=== PATIENT | male | born 1950 | race African-American/Black ===

== ENCOUNTER → 2017-04-06 | Outpatient (CLI) | payer OTHER ==
[~2017-04-06] MED LIST: ASA5UEC PO; ASA81BEC OR; CRESTOR20 MG PO; EFFIENT10 MG PO; GLUCOPHAGE500 MG PO; LANTUS SC; LASIX 20 MG TAB20 MG PO; LISINOPRIL40 MG PO; NOVOLOG100 UNIT/1 SQ; POTASSIUM20 PO; TOPROL XL50 MG PO
== END ==
LOC: HYPER 06:58
DX: T87.89 Other complications of amputation stump (principal); T81.31XA Disruption of external operation (surgical) wound, not elsewhere classified, initial encounter; E11.621 Type 2 diabetes mellitus with foot ulcer; L89.892 Pressure ulcer of other site, stage 2; L97.521 Non-pressure chronic ulcer of other part of left foot limited to breakdown of skin; S81.811A Laceration without foreign body, right lower leg, initial encounter; I10 Essential (primary) hypertension; Z89.411 Acquired absence of right great toe; Z89.421 Acquired absence of other right toe(s); Z85.46 Personal history of malignant neoplasm of prostate; Z72.89 Other problems related to lifestyle; Y92.89 Other specified places as the place of occurrence of the external cause; Y83.8 Other surgical procedures as the cause of abnormal reaction of the patient, or of later complication, without mention of misadventure at the time of the procedure; Y83.5 Amputation of limb(s) as the cause of abnormal reaction of the patient, or of later complication, without mention of misadventure at the time of the procedure; X58.XXXA Exposure to other specified factors, initial encounter; Y93.89 Activity, other specified; Y99.8 Other external cause status

== ENCOUNTER → 2017-04-12 | Outpatient (CLI) | payer OTHER ==
--- NOTE | ~2017-04-12 | EKG ---
[address] [place] [address] ELECTROCARDIOGRAM REPORT Name: MARY NIEVES Room #: REG [facility]#: [id number] Admission: 04/12/17 Attend Phys: Nick Bell MD Discharge: Date of : 46 Report #: [id number] THIS REPORT FOR: //name// [facility] Test Date: 2017-04-12 Test Time: 13:28:19 Pat Name: MARY NIEVES Department: Room: Gender: M Philosophy Faculty: Cheri GRANT : 1950 Requested By: Nick Bell Order Number: [id number] MD: Richard Steiner Measurements Intervals [place] Rate: 73 P: -40 NM: 193 QRS: -52 QRSD: 139 T: 81 QT: 428 QTc: 472 Interpretive Statements Sinus rhythm Right bundle branch block Left ventricular hypertrophy Left anterior hemiblock Compared to ECG 06/16/2010 07:22:42 no significant change was found Electronically Signed On 04-12-2017 18:16:02 CDT by Richard Steiner [email or web address] <ELECTRONICALLY SIGNED> By: Richard Steiner MD, [facility] 04/12/17 1816 1328 1328 Richard Steiner MD, [facility] /EPI
== END ==
LOC: CV 13:03
DX: E11.69 Type 2 diabetes mellitus with other specified complication (principal); T81.31XA Disruption of external operation (surgical) wound, not elsewhere classified, initial encounter; Z89.411 Acquired absence of right great toe; Z89.421 Acquired absence of other right toe(s)

== ENCOUNTER → 2017-04-27 | Outpatient (CLI) | payer OTHER | LOC: HYPER | DX: T81.31XD Disruption of external operation (surgical) wound, not elsewhere classified, subsequent encounter (principal); I10 Essential (primary) hypertension; E11.621 Type 2 diabetes mellitus with foot ulcer; L97.521 Non-pressure chronic ulcer of other part of left foot limited to breakdown of skin; Z85.46 Personal history of malignant neoplasm of prostate; Z72.89 Other problems related to lifestyle; Z89.411 Acquired absence of right great toe; Z89.421 Acquired absence of other right toe(s); Y83.8 Other surgical procedures as the cause of abnormal reaction of the patient, or of later complication, without mention of misadventure at the time of the procedure ==

== ENCOUNTER → 2017-05-11 | Outpatient (CLI) | payer OTHER | LOC: HYPER 07:05 | DX: T81.31XD Disruption of external operation (surgical) wound, not elsewhere classified, subsequent encounter (principal); E11.621 Type 2 diabetes mellitus with foot ulcer; L97.521 Non-pressure chronic ulcer of other part of left foot limited to breakdown of skin; I10 Essential (primary) hypertension; Z85.46 Personal history of malignant neoplasm of prostate; Z89.411 Acquired absence of right great toe; Z89.421 Acquired absence of other right toe(s); Z72.89 Other problems related to lifestyle; Y83.8 Other surgical procedures as the cause of abnormal reaction of the patient, or of later complication, without mention of misadventure at the time of the procedure ==

== ENCOUNTER → 2017-05-25 | Outpatient (CLI) | payer OTHER | LOC: HYPER 06:53 | DX: T81.31XD Disruption of external operation (surgical) wound, not elsewhere classified, subsequent encounter (principal); E11.9 Type 2 diabetes mellitus without complications; I10 Essential (primary) hypertension; Z85.46 Personal history of malignant neoplasm of prostate; Z72.89 Other problems related to lifestyle; Z89.411 Acquired absence of right great toe; Z89.421 Acquired absence of other right toe(s); Y83.8 Other surgical procedures as the cause of abnormal reaction of the patient, or of later complication, without mention of misadventure at the time of the procedure ==

== ENCOUNTER → 2017-06-01 | Outpatient (CLI) | payer OTHER | LOC: HYPER 07:03 | DX: T87.81 Dehiscence of amputation stump (principal); L89.893 Pressure ulcer of other site, stage 3; E11.621 Type 2 diabetes mellitus with foot ulcer; L97.521 Non-pressure chronic ulcer of other part of left foot limited to breakdown of skin; I10 Essential (primary) hypertension; Z85.46 Personal history of malignant neoplasm of prostate; Z72.89 Other problems related to lifestyle; Y83.5 Amputation of limb(s) as the cause of abnormal reaction of the patient, or of later complication, without mention of misadventure at the time of the procedure ==

== ENCOUNTER → 2017-06-08 | Outpatient (CLI) | payer OTHER | LOC: HYPER 06:48 | DX: T81.31XD Disruption of external operation (surgical) wound, not elsewhere classified, subsequent encounter (principal); E11.621 Type 2 diabetes mellitus with foot ulcer; L97.521 Non-pressure chronic ulcer of other part of left foot limited to breakdown of skin; L89.893 Pressure ulcer of other site, stage 3; E11.69 Type 2 diabetes mellitus with other specified complication; I10 Essential (primary) hypertension; Z89.411 Acquired absence of right great toe; Z89.421 Acquired absence of other right toe(s); Z85.46 Personal history of malignant neoplasm of prostate; Z72.89 Other problems related to lifestyle; Y83.8 Other surgical procedures as the cause of abnormal reaction of the patient, or of later complication, without mention of misadventure at the time of the procedure ==

== ENCOUNTER → 2017-06-15 | Outpatient (CLI) | payer OTHER | LOC: HYPER 06-13 09:14 | DX: T81.31XD Disruption of external operation (surgical) wound, not elsewhere classified, subsequent encounter (principal); E11.621 Type 2 diabetes mellitus with foot ulcer; L89.893 Pressure ulcer of other site, stage 3; L97.521 Non-pressure chronic ulcer of other part of left foot limited to breakdown of skin; I10 Essential (primary) hypertension; Z89.411 Acquired absence of right great toe; Z89.421 Acquired absence of other right toe(s); Z85.46 Personal history of malignant neoplasm of prostate; Z72.89 Other problems related to lifestyle; Y83.8 Other surgical procedures as the cause of abnormal reaction of the patient, or of later complication, without mention of misadventure at the time of the procedure ==

== ENCOUNTER → 2017-06-29 | Outpatient (CLI) | payer OTHER | LOC: HYPER 07:06 | DX: T81.31XD Disruption of external operation (surgical) wound, not elsewhere classified, subsequent encounter (principal); E11.621 Type 2 diabetes mellitus with foot ulcer; L97.521 Non-pressure chronic ulcer of other part of left foot limited to breakdown of skin; L89.893 Pressure ulcer of other site, stage 3; I10 Essential (primary) hypertension; Z89.411 Acquired absence of right great toe; Z89.421 Acquired absence of other right toe(s); Z85.46 Personal history of malignant neoplasm of prostate; Z72.89 Other problems related to lifestyle; Y83.8 Other surgical procedures as the cause of abnormal reaction of the patient, or of later complication, without mention of misadventure at the time of the procedure ==

== ENCOUNTER 2017-07-08 17:29 | Inpatient (IN) | payer OTHER ==
[~2017-07-08] VITALS: Ht 182.9 cm; Wt 86.5 kg
--- NOTE | ~2017-07-08 | HC ---
[facility] [place] [address] CONSULTATION Name: MARY NIEVES [place]QU[place] Room #: 419-P [facility] IN M.R.#: [id number] Admission: 07/08/17 Attend Phys: Jovani Daniel DO Discharge: Date of : 46 Report #: [id number] THIS REPORT FOR: //name// [facility] DATE OF SERVICE: 07/09/2017 REASON FOR CONSULTATION: Left foot osteomyelitis. HISTORY OF PRESENT ILLNESS: The patient is a 67-year-old gentleman who has been having diabetic foot ulcers on his left foot for several months. He actually underwent a first and second ray amputation back in January of this year at [facility]. He is being followed by wound care, having treatments with hyperbaric oxygen. In the past 3 days, on the lateral side on his wheelchair and has had now an increasing wound over his foot. He was admitted for evaluation of this. He has had an MRI scan of his foot. He has been on IV antibiotics. PAST MEDICAL HISTORY: Significant for diverticulitis. He had just stopped smoking in 2005, prostate cancer, coronary artery disease, hypertension, hyperlipidemia, peripheral neuropathy, type 2 diabetes, left first and second ray amputations, multiple left foot wound debridements. CURRENT MEDICATIONS: Have been reviewed and are on the chart. PHYSICAL EXAMINATION: GENERAL: Well-developed, well-nourished male, in no acute distress. He is alert and oriented, pleasant, cooperative with exam. EXTREMITIES: Examination of left foot shows him to have missing first and second ray. He has a large eschar over his lateral foot at the base of the small toe. He has healing wounds on the dorsum of the foot. The foot is foul smelling. He is not able to dorsiflex the foot and plantar flex to only 10 degrees. He has significantly decreased sensation to light touch. MRI scan of the left foot shows osteomyelitis of the small toe and extension down to the fifth metatarsal with soft tissue edema and swelling. ASSESSMENT: Left foot small toe and fifth metatarsal osteomyelitis with overlying diabetic ulceration. PLAN: Treatment options were discussed today with him. We discussed fifth ray amputation versus below-knee amputation. I discussed with him that my recommendation really is for below-knee amputation as he has been dealing with foot issues on this foot for several months now. If he underwent a fifth ray amputation, he would only be left with 2 toes and 2 metatarsals, which would be [address] [address] CONSULTATION Name: MARY NIEVES Room #: 419-P [facility] IN [facility]#: [id number] Admission: 07/08/17 Attend Phys: Jovani Daniel DO Discharge: Date of : 46 Report #: [id number] very difficult to ambulate on, in addition to the continued infection and complications that he may have from that his foot. He is going to consider these things tonight and let us know in the morning what he would like to do. I have him scheduled for surgery at 8:30 a.m. We will plan for either a fifth ray amputation versus a below-knee amputation. Thank you for allowing us to participate in the care of the patient. <ELECTRONICALLY SIGNED> By: Brent Finney MD 07/10/17 0929 2209 0337 Brent Finney MD /nt
--- NOTE | ~2017-07-08 | O ---
[facility] [place] [address] OPERATIVE REPORT Name: MARY NIEVES AQUILINO Room #: 419-P [facility] IN M.R.#: [id number] Admission: 07/08/17 Attend Phys: Anuj Rhoades MD Discharge: Date of : 46 Report #: [id number] THIS REPORT FOR: //name// CC: Jovani Velarde [facility] DATE OF SERVICE: 07/10/2017 PREOPERATIVE DIAGNOSES: Left foot small toe and fifth metatarsal osteomyelitis. POSTOPERATIVE DIAGNOSES: Left foot small toe and fifth metatarsal osteomyelitis. PROCEDURE PERFORMED: Left below-knee amputation. SURGEON: Brent Finney MD. DRAFTING ENGINEER: Jackie Pardo PA-C. ANESTHESIA: General. TOURNIQUET TIME: 36 minutes. COMPLICATIONS: None. SPECIMENS: The left foot and lower extremity were sent to pathology. CONDITION UPON LEAVING THE OPERATING ROOM: Stable. ESTIMATED BLOOD LOSS: 50 mL. INDICATIONS FOR PROCEDURE: The patient is a 67-year-old gentleman with diabetes. He has had previous left foot osteomyelitis, including his first and second rays that were amputated back in January of this year. He developed an eschar over his lateral foot and an MRI scan showed him to have osteomyelitis of the small toe, extending into his fifth metatarsal. He has been getting hyperbaric wound care in order to heal a dorsal ridge on his foot. After discussion with him, including options of a fifth ray amputation versus a below-knee amputation and the risks and benefits of both, he elected for left below-knee amputation. DESCRIPTION OF PROCEDURE: Risks, benefits, alternatives and complications were discussed in detail with the patient, including but not limited to risk of anesthesia; risks of damage to nerves, arteries, blood vessels; risk for infection, bleeding, and need for higher level amputation; informed consent was [facility] [address] [place] [address] OPERATIVE REPORT Name: MARY NIEVES [place] Room #: 419-P [facility] IN ..#: [id number] Admission: 07/08/17 Attend Phys: Anuj Rhoades MD Discharge: Date of : 48 Report #: [id number] obtained from the patient. The left leg was appropriately marked in the preoperative holding area. IV vancomycin was given for preoperative antibiotics. He was brought to the operating room and placed in supine position on operating room table. LMA anesthesia was induced without complication. Tourniquet was placed on the left thigh. Left lower extremity was prepped and draped in normal sterile fashion. Time-out was performed, properly identifying the patient, procedure as well as the instrumentation. All in the operating room were in agreement. A posterior flap based incision was marked on the skin with a marking pen. The left lower extremity was elevated, tourniquet was inflated. The skin incision was made with 10 blade through the skin to the deep tissue and then dissection was taken down with Bovie cautery through the anterolateral compartment as well as the lateral compartment. As vessels were encountered, they were dissected out and tied off with 0 silk. The periosteum was then elevated proximally and the skin and periosteum were retracted proximally over the tibia and this was then cut transversely using oscillating saw. The anterior portion of the tibia was beveled with a saw. The fibula was then resected at 1 cm proximal to the cut of the tibial resection. Dissection was continued along the posterior aspect of the tibia using Bovie cautery. The tibial vessels were dissected out and tied off with 0 silk. The tibial nerve was then dissected out and pulled and cut sharply with 10 blade to decrease neuroma formation. The deep posterior compartment was then removed to decrease the bulk of the flap. Tourniquet was deflated and hemostasis was obtained with Bovie cautery. The superficial posterior compartment was then flapped anteriorly over the tibia and sewn to the anterior fascia and periosteum with 0 Vicryl suture. Skin was then closed with 2-0 Vicryl and skin nikki. Soft dressing of Adaptic, 4 x 4, Webril, Ricci wrap were applied. The patient tolerated this procedure well and went to the recovery room under the care of anesthesia postoperatively. <ELECTRONICALLY SIGNED> By: Brent Finney MD 07/12/17 1105 1120 1233 Brent Finney MD /nt
--- NOTE | ~2017-07-08 | HC ---
[facility] [place] [address] CONSULTATION Name: LIZBETHMARY AQUILINO Room #: 419-P ADM IN M.R.#: [id number] Admission: 07/08/17 Attend Phys: Anuj Rhoades MD Discharge: Date of : 46 Report #: [id number] THIS REPORT FOR: //name// CC: Brody Rhoades DATE OF SERVICE: 07/12/2017 HISTORY OF PRESENT ILLNESS: The patient is a 67-year-old -Martiniquais male who has had problems with her left foot wound with osteomyelitis. He has peripheral vascular disease and diabetes mellitus with gangrene. He underwent a trial of hyperbaric oxygen and unfortunately has now been admitted to [facility] and has underwent a left below knee amputation on 07/10/2017. He is on the IV antibiotics as per Infectious Disease. He is being closely monitored with the diabetes. He does have anemia on PPI with consideration of a GI evaluation if the hemoglobin drops. He does have acute on chronic renal insufficiency. We are seeing him in rehabilitation medicine consultation. PAST MEDICAL HISTORY: Diabetes mellitus type 2, left below knee amputation 07/10/2017, hypertension, anemia, acute renal insufficiency versus chronic kidney disease. He also has a history of congestive heart failure, prostate CA, coronary artery disease with stenting of the LAD, peripheral neuropathy, and hyperlipidemia. HABITS: Past tobacco, stopping in 2005. No history of alcohol abuse. FAMILY HISTORY: Heart disease, diabetes. ALLERGIES: CODEINE. REVIEW OF SYSTEMS: Did not offer any current complaints of chest pain, shortness of breath or abdominal discomfort. Notes that he has some numbness of the right foot with the peripheral neuropathy. No focal extremity pain complaints. PHYSICAL EXAMINATION: GENERAL: A 67-year-old -Martiniquais male in no obvious distress. The patient is alert, pleasant. VITAL SIGNS: Last recorded temperature 98.8, pulse 76, respirations 16, blood pressure 135/47. HEENT: Appeared to be benign. Cranial nerves are grossly intact. Facies are symmetric. EXTREMITIES: Functional range of motion of both upper extremities without obvious focal weakness. Lower extremities, his left below knee amputation is dressed. He is able to flex that left hip and abduct. Some discomfort with [facility] [address] [place] [address] CONSULTATION Name: MARY NIEVES [place] Room #: 419-P [facility] IN ..#: [id number] Admission: 07/08/17 Attend Phys: Anuj Rhoades MD Discharge: Date of : 46 Report #: [id number] movement. Right lower extremity strength is a grade 4-/5. He has decreased distal sensation in a stocking distribution. He is mod assist with sit to stand. He was able to stand with mod assist, could not try to hop at all. Bed mobility is min assist. ASSESSMENT: A 67-year-old -Martiniquais male with the following problem list: 1. Left below-knee amputation, 07/10/2017. 2. Peripheral polyneuropathy. 3. Left foot wound, osteomyelitis with peripheral vascular disease, continuing on the IV antibiotics. 4. Acute renal insufficiency superimposed on chronic kidney disease. 5. Diabetes mellitus type 2. 6. Anemia. 7. History of coronary artery disease with stenting. PLAN: The patient is a candidate for an acute in-hospital inpatient rehabilitation stay. From a preadmission screening perspective: 1. Prior level of function is well delineated above. 2. Expected level of improvement would be for the patient to become modified independent with transfers, mobility and ADLs, so that he can return back to the home setting. We would anticipate length of stay of probably at least a week pending progress. 3. Evaluation of the patient's risk for clinical complications. He does have multiple medical comorbidities as noted above. 4. Condition that caused the need for rehabilitation would be the left below knee amputation with multiple comorbidities as noted above. 5. Treatments needed would include PT and OT 1-1/2 hours per day each five days a week throughout the duration of the acute inpatient rehabilitation stay. 6. Anticipated discharge destination would be back to the home setting. 7. Would anticipate home healthcare therapies once he is ready for discharge from rehabilitation. 8. The patient meets diagnostic criteria for an acute in-hospital inpatient rehabilitation stay. He meets medical necessity criteria and the multiple design consultant physicians will continue to follow. He does have the tolerance for an acute rehab stay and has appropriate discharge goals back to the home setting. By: 1036 1320 Lawrence Chatterjee MD /[facility]
--- NOTE | ~2017-07-08 | HC ---
[facility] [place] [address] CONSULTATION Name: MARY NIEVES Room #: 419-P ADM IN M.R.#: [id number] Admission: 07/08/17 Attend Phys: Jovani Daniel DO Discharge: Date of : 46 Report #: [id number] THIS REPORT FOR: //name// CC: [facility] DATE OF SERVICE: 07/09/2017 ATTENDING PHYSICIAN: Dr. Ortiz. REASON FOR EVALUATION: Left foot osteomyelitis. HISTORY OF PRESENT ILLNESS: Chart reviewed, patient examined. This is a 67-year-old gentleman with diabetes mellitus type 2, perhaps 10 years. This has been complicated by severe peripheral neuropathy, suspect some degree of vasculopathy as well who had issues with chronic osteomyelitis, previous great and second toe amputations. He has been followed by the wound care center. He over the course of the last 48-72 hours, developed an area in the mid portion of the lateral aspect of tissue necrosis. There was some concern about possible trauma that he was unaware of due to the wheelchair. Did have associated systemic illness with low-grade temperatures. He has been nauseated for unclear reasons, poor p.o. intake with anorexia. significant pulmonary-related complaints. Blood cultures are pending. Surgery evaluation pending as well. MRI showed changes that raised question of septic fifth MTP joint arthritis with osteomyelitis involving the fifth metatarsal proximal phalanx, soft tissue abscess, gas, and interosseous gas, multifocal marrow signal involving the lateral cuneiform, navicular, talar head and anteromedial tibial, which are nonspecific. Empirically started on vancomycin. ALLERGIES: CODEINE. CURRENT MEDICATIONS: Include ferrous sulfate, enoxaparin, pantoprazole, aspirin, vancomycin, oxycodone, insulin. PAST MEDICAL HISTORY: As described above. Diabetes mellitus, history of prostate cancer, history of cardiomyopathy with congestive heart failure, diverticulitis. SOCIAL HISTORY: Nonsmoker, no ethanol. FAMILY HISTORY: Noncontributory. REVIEW OF SYSTEMS: As above. PHYSICAL EXAMINATION: [facility] [address] [place] [address] CONSULTATION Name: MARY NIEVES [place]QU[place] Room #: 419-P [facility] IN M.R.#: [id number] Admission: 07/08/17 Attend Phys: Jovani Daniel DO Discharge: Date of : 46 Report #: [id number] GENERAL: Pleasant, alert, cooperative, in moderate distress. He is lucid. VITAL SIGNS: Temperature 99.2, pulse 74, respirations 18, blood pressure 115/49. SKIN: Warm, dry, no rashes. HEENT: Otherwise, unremarkable. NECK: Supple. LUNGS: Generally clear. HEART: Regular. I do not appreciate any murmur. ABDOMEN: Soft, nontender, nondistended. EXTREMITIES: Dressing over the left foot, there is an odor noted. GENITOURINARY: Deferred. RECTAL: Deferred. LABORATORY DATA AND IMAGING: MRI as described above. CBC: White count 14.2, H and H of 8.0 and 24.3, platelets of 277. Electrolytes: Sodium 134, potassium 3.5, chloride 100, bicarbonate is 27, BUN and creatinine 27 and 1.4, hemoglobin A1c of 8.9. TSH of 1.257, sed rate of greater than 150. Arterial Dopplers of lower extremity showed monophasic waveforms in the popliteal artery distal. ASSESSMENT: Probable osteomyelitis involving the lateral left foot, particular the metatarsal as well as a septic arthritis. We will continue therapy. With the odor and gas raising the question of polymicrobial etiology including anaerobes, we will add piperacillin, tazobactam to his antibiotic regimen, await surgery evaluation. I think in all likelihood, he will need some sort of operative debridement, at least partial ostectomy including the metatarsal head. Continue to monitor expectantly at this point. Seemingly the nausea started prior to initiation of antimicrobial therapy would be concerned about adverse drug effects as well. <ELECTRONICALLY SIGNED> By: Van Durbin MD 07/10/17 0501 1426 2246 Van Durbin MD /nt
--- NOTE | ~2017-07-08 | HC ---
[facility] [place] [address] CONSULTATION Name: LIZBETH,MARY AQUILINO Room #: 419-P ADM IN M.R.#: [id number] Admission: 07/08/17 Attend Phys: Anuj Rhoades MD Discharge: Date of : 48 Report #: [id number] THIS REPORT FOR: //name// CC: Brody Rhoades DATE OF SERVICE: 07/09/2017 CHIEF COMPLAINT: Left fifth toe and MTP diabetic foot wound. HISTORY OF PRESENT ILLNESS: The patient is a 67-year-old male patient with whom I am familiar. He has a history of some peripheral arterial disease, diabetes, and chronic ulceration involving his left foot. He has been followed by Dr. Bell and myself as an outpatient. He has had good improvement on the wound on the dorsal aspect of the foot and has completed a course of hyperbaric oxygen therapy and continuing local wound care. He has significant diabetic neuropathy in his left foot rubbed against the support of his wheelchair causing new ulceration over the fifth MTP. It was debrided and had been improving; however, over the last 24-48 hours, he developed increasing drainage, odor and some tissue necrosis. He has been admitted to the hospital. An MRI demonstrates septic arthritis and underlying osteomyelitis. The patient denies any pain, does complain of nausea as well as some chills. PAST MEDICAL HISTORY: Positive for hypertension, diabetes mellitus, peripheral arterial disease, congestive heart failure, history of prostate cancer with prior radiation treatments, coronary artery disease, previous left great toe amputation and chronic ulcerations to the dorsal aspect of the left foot, which have been improving. FAMILY HISTORY: Positive for coronary artery disease and diabetes. SOCIAL HISTORY: The patient is a former smoker. No alcohol or recreational drug use. MEDICATIONS: Include vancomycin, enteric coated aspirin, Effient, Zestril, Crestor, Lantus, NovoLog, Glucophage, metoprolol, Lasix and potassium chloride. ALLERGIES: CODEINE. REVIEW OF SYSTEMS: CONSTITUTIONAL: The patient does complain of chills, denies fever or weight loss. NEUROLOGICAL: The patient does have diabetic neuropathy. ENT: The patient denies earache, nasal drainage, sore throat. CARDIOVASCULAR: The patient denies chest pain, palpitations or diaphoresis. [address] [address] CONSULTATION Name: MARY NIEVES [place] Room #: 419-P [facility] IN ..#: [id number] Admission: 07/08/17 Attend Phys: Anuj Rhoades MD Discharge: Date of : 48 Report #: [id number] PULMONARY: The patient denies cough or shortness of breath. GASTROINTESTINAL: The patient does complain of nausea and some vomiting earlier today. Denies abdominal pain. ORTHOPEDIC: The patient is aware of the ulceration in his foot as well as the odor. Other systems are negative. PHYSICAL EXAMINATION: VITAL SIGNS: At this time include pulse 74, respiratory rate 18, blood pressure 115/49, temperature 99.2. GENERAL: This is a chronically ill-appearing male patient who appears to be in no distress. HEENT: Head is normocephalic. Nose and throat clear. NECK: Supple. LUNGS: Clear. HEART: Regular rate and some bowel sounds present. EXTREMITIES: Demonstrate nonpalpable distal pulses, although the skin is pink and warm and he has slightly sluggish capillary refill. He has an ulceration on the dorsal aspect of his left foot, a surgically absent left great toe. The ulceration on the dorsum of this foot has some slough, but has substantially improved over the last 30 days. Left lateral foot; however, shows necrosis, eschar and evidence of some gangrene. There is significant odor, this does tunnel to bone. MRI demonstrates septic arthritis at the fifth MTP joint with osteomyelitis of the fifth metatarsal and proximal phalanx and a marginal soft tissue abscess with intraosseous gas. The x-ray evaluation of this foot, osteomyelitis involving the fifth MTP joint with adjacent soft tissue gas. Arterial Doppler demonstrates monophasic waveforms below the knee, but no focal stenosis is seen. RECOMMENDATIONS: At this point in time, the patient has been started on intravenous antibiotic therapy. He will need surgical debridement. I have consulted Dr. [facility]. We will also discuss this with Interventional Radiology for consideration of possible angiography to make sure that we have maximized his flow. I appreciate being asked to see him in consultation. We will recommend quarter strength Dakin's moist gauze dressings. <ELECTRONICALLY SIGNED> By: Santos Montero MD 07/11/17 1443 1508 [id number] Santos Montero MD /nt
--- NOTE | ~2017-07-08 | S ---
[facility] [place] [address] SURGICAL PATH RPT PROCEDURE Name: MARY LAL Room #: 419-P [facility] IN M.R.#: [id number] Admission: 07/08/17 Date of : 46 Discharge: 07/12/17 Report #: [id number] Path Case #: [id number] PATHOLOGY REPORT COLLECTION DATE: 07/10/2017 RECEIVED DATE: 07/11/2017 SUBMITTING PHYS: Dr. Jovani Daniel OTHER PHYS: Dr. Brody Velarde SPECIMEN(S) RECEIVED: A.Left below knee amputation * * * * * * * * * * * * FINAL DIAGNOSIS: Leg, left leg, syrha-xuti-ymyzrmdpbq: - Gangrenous necrosis along with marked ulceration as well as abscess formation. - Skin margin viable and unremarkable. - Anterior tibial vessels showing moderate to marked atherosclerosis. - Bone margin grossly viable and 4.0 cm away from the skin margin. (IUV:mgr; 07/13/2017) PATHOLOGIST: Melina Chin M.D. REPORT ELECTRONICALLY SIGNED BY: Melina Chin M.D. DATE/TIME: 07/13/2017 15:02 * * * * * * * * * * * * GROSS PATHOLOGY: The specimen is received in fresh, labeled "Mary Lal and left BKA" is a left leg that has been amputated below the knee with leg measuring 33.0 cm from heel to cutaneous margin and foot measuring 30.0 cm from heel to tip of third toe. The bone margin is grossly viable, extends 4.0 cm beyond the skin margin. The foot is status post first and second toe amputation. The dorsal foot shows a non-healing wound measuring 14.5 by a 5.7 cm. The bed is ulcerated and shows a green discoloration. At the lateral distal foot is a necrotic lesion that measures 7.0 x 4.0 cm. At the heel is a dark red maroon necrotic lesion with surrounding hyperkeratotic skin measures up to 6.3 cm in greatest dimension. All lesions clear the margin by 26.0 cm or greater. The remaining skin is black. The fifth toe shows red maroon discoloration with skin sloughing. The nail plate's of each toe are markedly thickened. The anterior tibial artery shows moderate to marked atherosclerosis. The posterior artery is not grossly identified. The margin appears viable. Ragman sections are submitted A1-A5. A1-A2 necrotic lesions [address] [address] SURGICAL PATH RPT PROCEDURE Name: MARY LAL AQUILINO Room #: 419-P DIS IN M.R.#: [id number] Admission: 07/08/17 Date of : 46 Discharge: 07/12/17 Report #: [id number] Path Case #: [id number] A3 anterior tibial vessels A4 margins skin and skeletal muscle A5 fifth toe, decal (THU; 07/11/2017) CLINICAL HISTORY: Left diabetic foot with fifth toe osteomyelitis INITIAL CPT CODE(S): A; 66026, 34463 Professional services performed by [facility] at [facility] [address], [place] [address] Technical services performed by [facility] at [address] [place] [address], [address], [place] [address]. [facility] [address] [place] [address] PHONE: [phone] DIRECTOR: Juan Munoz M.D. * * * END OF REPORT * * *
[2017-07-08 17:35] VITALS: BP 100/46
[2017-07-08 19:42] LABS: HEMATOCRIT 27.6 % (42.0-52.0); HEMOGLOBIN 8.7 gm/dL (14.0-18.0); MCH 25.4 pg (26.0-34.0); MCHC 31.7 g/dL (28.0-37.0); MCV 80.1 fL (80.0-100.0); PLATELET COUNT 303 thou/uL (150-400); RBC 3.44 mil/uL (4.50-6.00); RDW 14.5 % (10.5-14.5); WBC 18.4 thou/uL (4.0-11.0)
[2017-07-08 19:43] LABS: MANUAL DIFF YES
[2017-07-08 19:50] LABS: CALCIUM 9.3 mg/dL (8.5-10.1); CREATININE 1.5 mg/dL (0.7-1.3); POTASSIUM 3.8 mmol/L (3.5-5.1)
[2017-07-08 19:56] LABS: ALBUMIN 2.7 g/dL (3.4-5.0); TOTAL PROTEIN 8.2 g/dL (6.4-8.2)
[2017-07-08 20:32] LABS: ABSOLUTE NEUTROPHILS 15.8 thou/uL (1.4-8.2); ANISOCYTOSIS 1+; POLYCHROMASIA OCCASIONAL; TOTAL CELL COUNT 100
[2017-07-08 20:43] VITALS: BP 94/68
[2017-07-08 20:45] VITALS: BP 119/46
[2017-07-09 03:46] VITALS: BP 110/57
[2017-07-09 04:06] LABS: GLYCOHEMOGLOBIN (HGB A1C) 8.9 % (4.8-5.6)
[2017-07-09 06:44] LABS: % SATURATION 12 % (20-39); IRON 15 ug/dL (65-175); TIBC 126 ug/dL (250-450); UIBC 111 ug/dL
[2017-07-09 08:02] VITALS: BP 115/49
[2017-07-09 09:57] LABS: HEMATOCRIT 24.3 % (42.0-52.0); MCH 26.1 pg (26.0-34.0); MCHC 32.8 g/dL (28.0-37.0); MCV 79.7 fL (80.0-100.0); RBC 3.05 mil/uL (4.50-6.00); RDW 14.6 % (10.5-14.5); WBC 14.2 thou/uL (4.0-11.0)
[2017-07-09 09:58] LABS: CALCIUM 8.4 mg/dL (8.5-10.1); CREATININE 1.4 mg/dL (0.7-1.3); POTASSIUM 3.5 mmol/L (3.5-5.1)
[2017-07-09 16:11] VITALS: BP 106/62
[2017-07-09 19:28] VITALS: BP 123/55
[2017-07-10] VITALS (17 sets, daily range): BP systolic 117–149; BP diastolic 51–77
[2017-07-10 06:47] LABS: HEMATOCRIT 22.5 % (42.0-52.0); HEMOGLOBIN 7.6 gm/dL (14.0-18.0); MCH 26.5 pg (26.0-34.0); MCHC 33.8 g/dL (28.0-37.0); MCV 78.5 fL (80.0-100.0); PLATELET COUNT 279 thou/uL (150-400); RBC 2.87 mil/uL (4.50-6.00); RDW 14.5 % (10.5-14.5); WBC 11.4 thou/uL (4.0-11.0)
[2017-07-10 06:49] LABS: MANUAL DIFF YES
[2017-07-10 06:51] LABS: CALCIUM 8.5 mg/dL (8.5-10.1); CREATININE 1.3 mg/dL (0.7-1.3); MAGNESIUM 1.7 mg/dL (1.8-2.4); POTASSIUM 3.6 mmol/L (3.5-5.1)
[2017-07-10 09:33] LABS: ABSOLUTE NEUTROPHILS 8.9 thou/uL (1.4-8.2); ATYPICAL LYMPHS 1 %; TOTAL CELL COUNT 100
[2017-07-10 09:35] LABS: ANISOCYTOSIS SLIGHT
[2017-07-11 04:31] VITALS: BP 107/63
[2017-07-11 05:30] VITALS: BP 117/59
[2017-07-11 06:14] LABS: HEMATOCRIT 22.9 % (42.0-52.0); HEMOGLOBIN 7.7 gm/dL (14.0-18.0); MCH 26.7 pg (26.0-34.0); MCHC 33.6 g/dL (28.0-37.0); MCV 79.6 fL (80.0-100.0); PLATELET COUNT 316 thou/uL (150-400); RBC 2.88 mil/uL (4.50-6.00); RDW 14.5 % (10.5-14.5); WBC 8.3 thou/uL (4.0-11.0)
[2017-07-11 06:16] LABS: MANUAL DIFF YES
[2017-07-11 06:29] LABS: CALCIUM 8.3 mg/dL (8.5-10.1); CREATININE 1.4 mg/dL (0.7-1.3); MAGNESIUM 1.7 mg/dL (1.8-2.4); POTASSIUM 3.7 mmol/L (3.5-5.1)
[2017-07-11 07:28] VITALS: BP 125/66
[2017-07-11 08:43] LABS: ABSOLUTE NEUTROPHILS 6.2 thou/uL (1.4-8.2); TOTAL CELL COUNT 100
[2017-07-11 08:44] LABS: PLATELET ESTIMATE NORMAL
[2017-07-11 16:04] VITALS: BP 119/64
[2017-07-11 20:00] VITALS: BP 124/69
[2017-07-12 03:57] VITALS: BP 148/77
[2017-07-12 06:37] LABS: CALCIUM 8.5 mg/dL (8.5-10.1); CREATININE 1.3 mg/dL (0.7-1.3); MAGNESIUM 1.8 mg/dL (1.8-2.4); POTASSIUM 3.2 mmol/L (3.5-5.1)
[2017-07-12 06:51] LABS: ABSOLUTE NEUTROPHILS 5.9 thou/uL (1.4-8.2); BASOPHILS 0.4 % (0.0-2.0); EOSINOPHILS 3.5 % (0.0-3.0); HEMATOCRIT 22.2 % (42.0-52.0); HEMOGLOBIN 7.3 gm/dL (14.0-18.0); LYMPHOCYTES 12.4 % (24.0-44.0); MCH 26.2 pg (26.0-34.0); MCV 79.6 fL (80.0-100.0); MONOCYTES 10.7 % (1.0-8.0); PLATELET COUNT 366 thou/uL (150-400); RBC 2.79 mil/uL (4.50-6.00); RDW 14.6 % (10.5-14.5)
[2017-07-12 06:53] LABS: MANUAL DIFF NO
[2017-07-12 08:46] VITALS: BP 135/47
[2017-07-12 08:56] LABS: PLATELET ESTIMATE NORMAL
[2017-07-12] MEDS ORDERED: PANTOPRAZOLE SO40 M1 PO (12:04)
[2017-07-12] MEDS ORDERED: PERCOCET PO (12:04)
[2017-07-12] MEDS ORDERED: LEVEMIR SUBQ (12:04)
[2017-07-12] MEDS ORDERED: MIRALAX17 GM PO (12:04)
[2017-07-12] MEDS ORDERED: VENOFER20 MG/ML IV (12:04)
[2017-07-12] MEDS ORDERED: NEURONTIN 300300 M1 PO (12:04)
[2017-07-12] MEDS ORDERED: ENOXAPARIN40 MG/0.1 SUBQ (12:04)
[2017-07-12] MEDS ORDERED: COLACE100 MG PO (12:04)
[2017-07-12] MEDS ORDERED: HUMALOG100 UNIT/1 SUBQ (12:04)
[2017-07-12] MEDS ORDERED: IRON325 PO (12:04)
[2017-07-12] MEDS ORDERED: ADULT LOW DOSE81 MG PO (12:04)
[2017-07-12] MEDS ORDERED: KLOR-CON 1010 MEQ PO (13:00)
[2017-07-12] MEDS ORDERED: PRINIVIL20 M1 PO (13:00)
[2017-07-12] MEDS ORDERED: LASIX 20 MG TAB20 MG PO (13:00)
== END 2017-07-12 15:12 | DRG 853 ==
LOC: ER 17:29 → EROBS 20:34 → 4E 20:34
PROVIDERS: Internal Medicine; Nurse Practitioner Acute Care; Orthopaedic Surgery; Physician Assistant
PROC: 0Y6J0Z1 Detachment at Left Lower Leg, High, Open Approach (ICD-10-PCS; principal; 2017-07-10)
DX: A41.9 Sepsis, unspecified organism (principal); E43 Unspecified severe protein-calorie malnutrition; N17.9 Acute kidney failure, unspecified; M86.672 Other chronic osteomyelitis, left ankle and foot; M00.9 Pyogenic arthritis, unspecified; I13.0 Hypertensive heart and chronic kidney disease with heart failure and stage 1 through stage 4 chronic kidney disease, or unspecified chronic kidney disease; L02.612 Cutaneous abscess of left foot; I50.9 Heart failure, unspecified; E11.42 Type 2 diabetes mellitus with diabetic polyneuropathy; I25.10 Atherosclerotic heart disease of native coronary artery without angina pectoris; E78.5 Hyperlipidemia, unspecified; E11.621 Type 2 diabetes mellitus with foot ulcer; L97.529 Non-pressure chronic ulcer of other part of left foot with unspecified severity; E11.51 Type 2 diabetes mellitus with diabetic peripheral angiopathy without gangrene; E11.22 Type 2 diabetes mellitus with diabetic chronic kidney disease; D64.9 Anemia, unspecified; N18.3 Chronic kidney disease, stage 3 (moderate); E11.69 Type 2 diabetes mellitus with other specified complication; Z23 Encounter for immunization; Z89.432 Acquired absence of left foot; Z87.891 Personal history of nicotine dependence; Z85.46 Personal history of malignant neoplasm of prostate; Z92.3 Personal history of irradiation; Z79.899 Other long term (current) drug therapy; Z88.6 Allergy status to analgesic agent; Z79.82 Long term (current) use of aspirin; Z79.4 Long term (current) use of insulin; Z82.49 Family history of ischemic heart disease and other diseases of the circulatory system; Z83.3 Family history of diabetes mellitus; Z95.5 Presence of coronary angioplasty implant and graft; Z68.25 Body mass index [BMI] 25.0-25.9, adult
CPT/HCPCS: 10084; 50101; 50386; 51412; 53000; 56524; 56525; 56528; 57091; 62110; 62900; 70005

== ENCOUNTER → 2017-08-15 | Outpatient (CLI) | payer OTHER ==
[~2017-08-15] MED LIST changes: +ADULT LOW DOSE81 MG PO; +COLACE100 MG PO; +ENOXAPARIN40 MG/0.1 SUBQ; +HUMALOG100 UNIT/1 SUBQ; +IRON325 PO; +KLOR-CON 1010 MEQ PO; +LEVEMIR SUBQ; +MELATONIN5 M1 PO; +MIRALAX17 GM PO; +NEURONTIN 300300 M1 PO; +NORVASC10 MG PO; +PANTOPRAZOLE SO40 M1 PO; +PERCOCET PO; +PRINIVIL20 M1 PO; +VENOFER20 MG/ML IV
== END ==
LOC: HYPER
DX: T87.81 Dehiscence of amputation stump (principal); E11.621 Type 2 diabetes mellitus with foot ulcer; L89.521 Pressure ulcer of left ankle, stage 1; L89.893 Pressure ulcer of other site, stage 3; I10 Essential (primary) hypertension; Z85.46 Personal history of malignant neoplasm of prostate; Z72.89 Other problems related to lifestyle; Y83.5 Amputation of limb(s) as the cause of abnormal reaction of the patient, or of later complication, without mention of misadventure at the time of the procedure

== ENCOUNTER → 2019-03-12 | Outpatient (CLI) | payer OTHER | LOC: HYPER 06:52 | DX: E11.622 Type 2 diabetes mellitus with other skin ulcer (principal); L97.812 Non-pressure chronic ulcer of other part of right lower leg with fat layer exposed; I87.2 Venous insufficiency (chronic) (peripheral); E11.40 Type 2 diabetes mellitus with diabetic neuropathy, unspecified; E11.51 Type 2 diabetes mellitus with diabetic peripheral angiopathy without gangrene; I25.10 Atherosclerotic heart disease of native coronary artery without angina pectoris; I25.5 Ischemic cardiomyopathy; I11.0 Hypertensive heart disease with heart failure; I50.22 Chronic systolic (congestive) heart failure; G47.30 Sleep apnea, unspecified; K21.9 Gastro-esophageal reflux disease without esophagitis; Z79.4 Long term (current) use of insulin; Z79.01 Long term (current) use of anticoagulants; Z85.46 Personal history of malignant neoplasm of prostate ==

== ENCOUNTER → 2019-03-26 | Outpatient (CLI) | payer OTHER | LOC: HYPER 06:43 | DX: E11.622 Type 2 diabetes mellitus with other skin ulcer (principal); L97.211 Non-pressure chronic ulcer of right calf limited to breakdown of skin; L97.812 Non-pressure chronic ulcer of other part of right lower leg with fat layer exposed; S91.101A Unspecified open wound of right great toe without damage to nail, initial encounter; I87.2 Venous insufficiency (chronic) (peripheral); E11.40 Type 2 diabetes mellitus with diabetic neuropathy, unspecified; E11.51 Type 2 diabetes mellitus with diabetic peripheral angiopathy without gangrene; I25.10 Atherosclerotic heart disease of native coronary artery without angina pectoris; I25.5 Ischemic cardiomyopathy; I11.0 Hypertensive heart disease with heart failure; I50.22 Chronic systolic (congestive) heart failure; G47.33 Obstructive sleep apnea (adult) (pediatric); K21.9 Gastro-esophageal reflux disease without esophagitis; Z79.4 Long term (current) use of insulin; Z79.01 Long term (current) use of anticoagulants; Z89.512 Acquired absence of left leg below knee; Z95.818 Presence of other cardiac implants and grafts; Z95.0 Presence of cardiac pacemaker; Z85.46 Personal history of malignant neoplasm of prostate; W22.8XXA Striking against or struck by other objects, initial encounter; Y93.89 Activity, other specified; Y92.89 Other specified places as the place of occurrence of the external cause; Y99.8 Other external cause status ==

== ENCOUNTER → 2019-04-30 | Outpatient (CLI) | payer OTHER | LOC: HYPER 07:33 | DX: E11.622 Type 2 diabetes mellitus with other skin ulcer (principal); L97.812 Non-pressure chronic ulcer of other part of right lower leg with fat layer exposed; L89.329 Pressure ulcer of left buttock, unspecified stage; L98.491 Non-pressure chronic ulcer of skin of other sites limited to breakdown of skin; E11.40 Type 2 diabetes mellitus with diabetic neuropathy, unspecified; E11.51 Type 2 diabetes mellitus with diabetic peripheral angiopathy without gangrene; I87.2 Venous insufficiency (chronic) (peripheral); I11.0 Hypertensive heart disease with heart failure; I50.22 Chronic systolic (congestive) heart failure; I25.10 Atherosclerotic heart disease of native coronary artery without angina pectoris; I25.5 Ischemic cardiomyopathy; G47.33 Obstructive sleep apnea (adult) (pediatric); K21.9 Gastro-esophageal reflux disease without esophagitis; Z89.512 Acquired absence of left leg below knee; Z95.818 Presence of other cardiac implants and grafts; Z95.0 Presence of cardiac pacemaker; Z85.46 Personal history of malignant neoplasm of prostate; Z79.4 Long term (current) use of insulin; Z79.01 Long term (current) use of anticoagulants ==

== ENCOUNTER → 2020-04-08 | Outpatient (CLI) | payer OTHER | LOC: HYPER 06:31 | PROVIDERS: ATTEND Emergency Medicine | DX: E11.621 Type 2 diabetes mellitus with foot ulcer (principal); L97.512 Non-pressure chronic ulcer of other part of right foot with fat layer exposed; E11.51 Type 2 diabetes mellitus with diabetic peripheral angiopathy without gangrene; E11.40 Type 2 diabetes mellitus with diabetic neuropathy, unspecified; I87.2 Venous insufficiency (chronic) (peripheral); I11.0 Hypertensive heart disease with heart failure; I50.22 Chronic systolic (congestive) heart failure; I25.10 Atherosclerotic heart disease of native coronary artery without angina pectoris; I25.5 Ischemic cardiomyopathy; G47.33 Obstructive sleep apnea (adult) (pediatric); K21.9 Gastro-esophageal reflux disease without esophagitis; Z79.4 Long term (current) use of insulin; Z79.01 Long term (current) use of anticoagulants; Z95.828 Presence of other vascular implants and grafts; Z89.512 Acquired absence of left leg below knee; Z95.0 Presence of cardiac pacemaker; Z85.46 Personal history of malignant neoplasm of prostate ==

== ENCOUNTER → 2020-04-15 | Outpatient (CLI) | payer OTHER | LOC: HYPER 10:39 | PROVIDERS: ATTEND Emergency Medicine | DX: E11.621 Type 2 diabetes mellitus with foot ulcer (principal); L97.512 Non-pressure chronic ulcer of other part of right foot with fat layer exposed; I87.2 Venous insufficiency (chronic) (peripheral); E11.51 Type 2 diabetes mellitus with diabetic peripheral angiopathy without gangrene; E11.40 Type 2 diabetes mellitus with diabetic neuropathy, unspecified; I25.10 Atherosclerotic heart disease of native coronary artery without angina pectoris; I11.0 Hypertensive heart disease with heart failure; E11.69 Type 2 diabetes mellitus with other specified complication; I50.22 Chronic systolic (congestive) heart failure; G47.33 Obstructive sleep apnea (adult) (pediatric); K21.9 Gastro-esophageal reflux disease without esophagitis; Z85.46 Personal history of malignant neoplasm of prostate; Z79.4 Long term (current) use of insulin; Z79.01 Long term (current) use of anticoagulants; Z95.5 Presence of coronary angioplasty implant and graft; Z95.810 Presence of automatic (implantable) cardiac defibrillator ==

== ENCOUNTER → 2020-04-29 | Outpatient (CLI) | payer OTHER | LOC: HYPER 09:59 | PROVIDERS: ATTEND Emergency Medicine | DX: E11.621 Type 2 diabetes mellitus with foot ulcer (principal); L97.512 Non-pressure chronic ulcer of other part of right foot with fat layer exposed; I87.2 Venous insufficiency (chronic) (peripheral); E11.51 Type 2 diabetes mellitus with diabetic peripheral angiopathy without gangrene; E11.40 Type 2 diabetes mellitus with diabetic neuropathy, unspecified; I11.0 Hypertensive heart disease with heart failure; I50.22 Chronic systolic (congestive) heart failure; K21.9 Gastro-esophageal reflux disease without esophagitis; I25.10 Atherosclerotic heart disease of native coronary artery without angina pectoris; E11.69 Type 2 diabetes mellitus with other specified complication; G47.33 Obstructive sleep apnea (adult) (pediatric); Z95.0 Presence of cardiac pacemaker; Z79.4 Long term (current) use of insulin; Z79.01 Long term (current) use of anticoagulants; Z85.46 Personal history of malignant neoplasm of prostate; Z89.512 Acquired absence of left leg below knee ==

== ENCOUNTER → 2020-05-13 | Outpatient (CLI) | payer OTHER | LOC: HYPER 11:11 | PROVIDERS: ATTEND Emergency Medicine Emergency Medical Services | DX: E11.621 Type 2 diabetes mellitus with foot ulcer (principal); L97.512 Non-pressure chronic ulcer of other part of right foot with fat layer exposed; I87.2 Venous insufficiency (chronic) (peripheral); E11.51 Type 2 diabetes mellitus with diabetic peripheral angiopathy without gangrene; E11.40 Type 2 diabetes mellitus with diabetic neuropathy, unspecified; E11.69 Type 2 diabetes mellitus with other specified complication; I25.10 Atherosclerotic heart disease of native coronary artery without angina pectoris; I11.0 Hypertensive heart disease with heart failure; I50.22 Chronic systolic (congestive) heart failure; K21.9 Gastro-esophageal reflux disease without esophagitis; G47.33 Obstructive sleep apnea (adult) (pediatric); Z79.01 Long term (current) use of anticoagulants; Z79.4 Long term (current) use of insulin; Z85.46 Personal history of malignant neoplasm of prostate; Z95.5 Presence of coronary angioplasty implant and graft; Z95.0 Presence of cardiac pacemaker; Z89.512 Acquired absence of left leg below knee ==

== ENCOUNTER → 2020-05-27 | Outpatient (CLI) | payer OTHER | LOC: HYPER 11:15 | PROVIDERS: ATTEND Emergency Medicine | DX: E11.621 Type 2 diabetes mellitus with foot ulcer (principal); L97.512 Non-pressure chronic ulcer of other part of right foot with fat layer exposed; I87.2 Venous insufficiency (chronic) (peripheral); E11.51 Type 2 diabetes mellitus with diabetic peripheral angiopathy without gangrene; E11.40 Type 2 diabetes mellitus with diabetic neuropathy, unspecified; E11.69 Type 2 diabetes mellitus with other specified complication; I25.10 Atherosclerotic heart disease of native coronary artery without angina pectoris; I11.0 Hypertensive heart disease with heart failure; I50.22 Chronic systolic (congestive) heart failure; G47.33 Obstructive sleep apnea (adult) (pediatric); K21.9 Gastro-esophageal reflux disease without esophagitis; Z85.46 Personal history of malignant neoplasm of prostate; Z79.4 Long term (current) use of insulin; Z79.01 Long term (current) use of anticoagulants; Z89.512 Acquired absence of left leg below knee; Z95.0 Presence of cardiac pacemaker ==

== ENCOUNTER → 2020-06-10 | Outpatient (CLI) | payer OTHER | LOC: HYPER 10:49 | PROVIDERS: ATTEND Emergency Medicine | DX: E11.621 Type 2 diabetes mellitus with foot ulcer (principal); L97.412 Non-pressure chronic ulcer of right heel and midfoot with fat layer exposed; S80.821A Blister (nonthermal), right lower leg, initial encounter; E11.51 Type 2 diabetes mellitus with diabetic peripheral angiopathy without gangrene; E11.40 Type 2 diabetes mellitus with diabetic neuropathy, unspecified; G47.33 Obstructive sleep apnea (adult) (pediatric); I87.2 Venous insufficiency (chronic) (peripheral); I25.10 Atherosclerotic heart disease of native coronary artery without angina pectoris; I25.5 Ischemic cardiomyopathy; I11.0 Hypertensive heart disease with heart failure; K21.9 Gastro-esophageal reflux disease without esophagitis; I50.22 Chronic systolic (congestive) heart failure; Z79.4 Long term (current) use of insulin; Z79.01 Long term (current) use of anticoagulants; Z89.512 Acquired absence of left leg below knee; Z95.5 Presence of coronary angioplasty implant and graft; Z95.0 Presence of cardiac pacemaker; Z85.46 Personal history of malignant neoplasm of prostate; W22.8XXA Striking against or struck by other objects, initial encounter; Y93.39 Activity, other involving climbing, rappelling and jumping off; Y92.099 Unspecified place in other non-institutional residence as the place of occurrence of the external cause; Y99.8 Other external cause status ==

== ENCOUNTER 2020-06-17 18:14 | Inpatient (IN) | payer OTHER ==
[~2020-06-17] VITALS: Ht 182.9 cm; Wt 111.1 kg
--- NOTE | ~2020-06-17 | HC ---
[facility] [place] [address] CONSULTATION Name: MARY NIEVES Room #: 208-P [facility] IN M.R.#: [id number] Admission: 06/17/20 Attend Phys: Mikey Galvin MD Discharge: 06/20/20 Date of : 46 Report #: [id number] THIS REPORT FOR: cc: Sixto Sheldon,Santos Morejon MD ~ CC: Mikey Sheldon DATE OF SERVICE: 06/18/2020 CHIEF COMPLAINT: Venous ulcers of the right lower leg and prior left below-knee amputation. HISTORY: This is a 70-year-old male patient who was admitted to the hospital due to upper extremity swelling that began after experiencing a trip and fall at home. He has been admitted for further evaluation and treatment and was noted to have multiple ulcerations on the right leg. I have been asked to see him with regard to wound care. PAST MEDICAL HISTORY: Positive for peripheral vascular disease, type 2 diabetes mellitus, left foot ulcer with osteomyelitis, hyperlipidemia, hypertension, diverticulitis, congestive heart failure, prostate cancer, coronary artery disease. He has had previous left below-knee amputation. He has an AICD placed. SOCIAL HISTORY: The patient is a former smoker. No history of current alcohol or tobacco use. ALLERGIES: TO CODEINE. MEDICATIONS: Include aspirin, pantoprazole, insulin, lisinopril, furosemide, amlodipine, melatonin, ferrous sulfate, gabapentin, potassium chloride, docusate sodium, polyethylene glycol. FAMILY HISTORY: Noncontributory. REVIEW OF SYSTEMS: CONSTITUTIONAL: The patient denies fever, chills, or weight loss. NEUROLOGICAL: The patient denies focal weakness, numbness or tingling. EYES: The patient denies visual changes, redness, or drainage. ENT: The patient denies earache, nasal drainage or sore throat. CARDIOVASCULAR: The patient denies chest pain, palpitations or diaphoresis. PULMONARY: The patient denies cough or shortness of breath. GASTROINTESTINAL: The patient denies nausea, vomiting, diarrhea, or abdominal pain. [facility] [address] [place] [address] CONSULTATION Name: MARY NIEVES Room #: 208-P [facility] IN [facility]#: [id number] Admission: 06/17/20 Attend Phys: Mikey Galvin MD Discharge: 06/20/20 Date of : 46 Report #: [id number] ORTHOPEDIC: The patient complains of swelling in his left arm. There is some tenderness at the elbow and wrist area. Other systems in a 14-point review of systems are negative. PHYSICAL EXAMINATION: VITAL SIGNS: At this time include temperature 36.2, pulse 62, respiratory rate 17, blood pressure 140/70. GENERAL: This is a well-developed male patient who appears to be in minimal distress. HEENT: Head normocephalic. Nose and throat are clear. NECK: Supple. LUNGS: Clear. HEART: Irregular. ABDOMEN: Soft, nontender. EXTREMITIES: Demonstrate 2+ edema to the left upper extremity. There is mild tenderness at the wrist and at the elbow along the radial head. Lower extremities demonstrate prior left below-knee amputation. He has scattered venous ulcerations of the right lower leg, which appeared to be infected. NEUROLOGIC: The patient is alert and oriented and appropriate. LABORATORY STUDIES: Include sodium 144, potassium 3.7, chloride 108, CO2 of 27, BUN 21, creatinine 1.2, glucose 135. White blood cell count 4.7 with a hemoglobin of 12.4. CLINICAL IMPRESSION: 1. Venous ulcers, right lower extremity. 2. Prior left below-knee amputation. 3. Left arm edema with recent fall. 4. Congestive heart failure and coronary artery disease by history. 5. Type 2 diabetes mellitus. RECOMMENDATIONS: At this point in time, we will recommend a bordered foam and Tubigrip daily to the right lower extremity. We will recommend an x-ray of the wrist and elbow on the left side to evaluate for possible fracture following fall. Continue with medical management of his diabetes, hypertension, and congestive heart failure. I appreciate being asked to see the patient in consultation. By: 0900 1027 Santos Montero MD /nt
[2020-06-17 18:19] VITALS: BP 160/92
[2020-06-17] MEDS ORDERED: FUROSEMIDE 40 M40 M1 PO (18:25)
[2020-06-17] MEDS ORDERED: BASAGLAR K100 UNIT/1 SUBQ (18:25)
[2020-06-17] MEDS ORDERED: NOVOLIN R100 UNIT/1 SUBQ (18:26)
[2020-06-17] MEDS ORDERED: SPIRONOLACTONE25 MG PO (18:26)
[2020-06-17] MEDS ORDERED: IMDUR 30 MG TAB30 M1 PO (18:26)
[2020-06-17] MEDS ORDERED: LISINOPRIL40 MG PO (18:26)
[2020-06-17] MEDS ORDERED: CLOPIDOGREL75 MG PO (18:26)
[2020-06-17] MEDS ORDERED: CARVEDILOL25 MG PO (18:26)
[2020-06-17 19:22] LABS: MCH 26.4 pg (26.0-34.0); RBC 5.03 mil/uL (4.50-6.00)
[2020-06-17 19:24] LABS: ABSOLUTE NEUTROPHILS 3.8 thou/uL (1.4-8.2); EOSINOPHILS 2.5 % (0.0-3.0); HEMATOCRIT 42.5 % (42.0-52.0); HEMOGLOBIN 13.2 gm/dL (14.0-18.0); LYMPHOCYTES 18.5 % (24.0-44.0); MCHC 31.2 g/dL (28.0-37.0); MCV 84.6 fL (80.0-100.0); MONOCYTES 8.1 % (1.0-8.0); POLYS 69.9 % (36.0-66.0); WBC 6.7 thou/uL (4.0-11.0)
[2020-06-17 19:28] LABS: CALCIUM 8.7 mg/dL (8.5-10.1); CREATININE 1.1 mg/dL (0.7-1.3); POTASSIUM 4.1 mmol/L (3.5-5.1)
[2020-06-17 19:36] LABS: TROPONIN-I 0.54 ng/mL (<0.06)
[2020-06-17 20:26] LABS: PLATELET COUNT 171 thou/uL (150-400)
[2020-06-17 21:36] VITALS: BP 177/93
--- NOTE | 2020-06-17 21:41 | NUR ---
Called to give report and was put on hold for over 5 min
[2020-06-17 21:54] VITALS: BP 167/89
[2020-06-17 22:21] VITALS: BP 194/115
[2020-06-17 23:33] VITALS: BP 172/103
[2020-06-18 00:22] LABS: CHOLESTEROL 144 mg/dL (<200); HDL CHOLESTEROL 47 mg/dL (>40); LDL CHOLESTEROL 91 mg/dL (<100); TC:HDL 3.1 Ratio (Not establshd); TRIGLYCERIDE 32 mg/dL (<150); VLDL 6 mg/dL (<40)
[2020-06-18 00:28] LABS: SERUM ASSESSMENT Clear
[2020-06-18 00:36] VITALS: BP 140/74
--- NOTE | 2020-06-18 00:37 | NUR ---
PT NEW ADMIT. ARRIVAL, 2200. ALERT AND ORIENTED. ELEVATED BP WITH OTHER VITALS STABLE. REPORTS SOB WITH EXERTION. ADDMISSION COMPLETED. MED REC COMPLETED MUCH PATIENT COULD REPORT. UNABLE TO RECALL ALL HIS HOME MEDS. PERSONAL CPAP INITIATED BY RT. PT ORIENTED TO ROOM AND CALL LIGHT SYSTEM. CONSENTS SIGNED. PT IS A LEFT BKA, ENCOURAGED TO CALL WHILE AMBUALTING. VPACED ON THE MONITOR. WILL CONTINUE TO MONITOE. DENIES NAUSEA , VOMITING OR CHEST PAIN.
[2020-06-18 04:54] LABS: CALCIUM 8.5 mg/dL (8.5-10.1); CREATININE 1.2 mg/dL (0.7-1.3); POTASSIUM 3.7 mmol/L (3.5-5.1); TROPONIN-I 0.55 ng/mL (<0.06)
[2020-06-18 05:27] VITALS: BP 154/88
[2020-06-18 05:32] LABS: HEMATOCRIT 39.4 % (42.0-52.0); HEMOGLOBIN 12.4 gm/dL (14.0-18.0); MCH 26.6 pg (26.0-34.0); MCHC 31.5 g/dL (28.0-37.0); MCV 84.4 fL (80.0-100.0); RBC 4.67 mil/uL (4.50-6.00); RDW 16.7 % (10.5-14.5); WBC 4.7 thou/uL (4.0-11.0)
--- NOTE | 2020-06-18 07:37 | EKG ---
[facility] [place] [address] ELECTROCARDIOGRAM REPORT Name: LIZBETHMARY BARRERA Room #: 208-P ADM IN M.R.#: [id number] Admission: 06/17/20 Attend Phys: Mikey Galvin MD Discharge: Date of : 46 Report #: [id number] THIS REPORT FOR: cc: Sixto Sheldon,Mauri Ryder MD [facility] ~ THIS REPORT FOR: //name// [facility] ED Test Date: 2020-06-17 Test Time: 19:16:29 Pat Name: MARY NIEVES Department: Room: 208 Gender: M Senior Administrative Services Officer: gustavo : 1950 Requested By: Bong Davis Order Number: [id number] MD: Mauri Chavarria Measurements Intervals [place] Rate: 65 P: 0 AR: 33 QRS: -71 QRSD: 144 T: 122 QT: 500 QTc: 520 Interpretive Statements Ventricular-paced complexes No further analysis attempted due to paced rhythm Compared to ECG 04/12/2017 13:28:19 Sinus rhythm no longer present Right bundle-branch block no longer present Left ventricular hypertrophy no longer present Left anterior fascicular block no longer present Electronically Signed On 06-18-2020 7:36:50 CDT by Mauri Chavarria [email or web address] <ELECTRONICALLY SIGNED> By: Mauri Chavarria MD, [facility] 06/18/20 0736 15 15 Mauri Chavarria MD, [facility] /EPI
[2020-06-18 07:58] VITALS: BP 147/77
[2020-06-18 11:38] VITALS: BP 120/59
[2020-06-18 14:22] LABS: CLARITY SLIGHTLY CLOUDY; COLOR YELLOW; TOTAL VOLUME 60 mL
[2020-06-18 14:28] LABS: SOURCE RIGHT CHEST
[2020-06-18 15:11] VITALS: BP 140/70
[2020-06-18 15:21] LABS: BF NUCLEATED CELLS 182 /mm3; BF RBC 1302 /mm3
[2020-06-18 15:27] LABS: BF MACROPHAGE 9 %; BF NEUTROPHILS 30 %
--- NOTE | 2020-06-18 17:34 | NUR ---
PT ALERT AND ORIENTED. VSS. HAD THORACENTESIS TODAY. UP IN THE CHAIR. DENIED HAVING PAIN OR DISCOMFORT. NO CONCERNS AT THIS TIME. PROGRESSING WELL TOWARDS DISCHARGE GOAL.
[2020-06-18 20:30] VITALS: BP 125/93
[2020-06-19 03:07] LABS: GLYCOHEMOGLOBIN (HGB A1C) 8.9 % (4.8-5.6)
[2020-06-19 03:30] VITALS: BP 131/63
--- NOTE | 2020-06-19 04:19 | NUR ---
PT ALERT AND ORIENTED. VITALS STABLE. DENIES CHEST PAIN, NAUSEA OR VOMITING. RECEIVED IV LASIX LAST NIGHT. PT INCONTINENT OVERNIGHT. ALL ASSESSMENTS DOCUMENTED. WILL CONTINUE TO MONITOR AND FOLLOW POC.
[2020-06-19 07:56] VITALS: BP 139/75
[2020-06-19 11:30] VITALS: BP 136/67
[2020-06-19 13:12] LABS: SOURCE CHEST
[2020-06-19 15:53] VITALS: BP 131/71
--- NOTE | 2020-06-19 16:06 | PATH ---
[facility] [address] [place] [address] PATHOLOGY RPT PROCEDURE Name: MARY NIEVES Room #: 208-P ADM IN M.R.#: [id number] Admission: 06/17/20 Date of : 46 Discharge: Report #: [id number] Path Case #: [id number] Note [facility] Accession Number: [id number] TESTS RESULT FLAG UNITS REF RANGE LAB Clinician Provided Cytology Information No. of containers..01 Other (Miscellaneous) Source: RT PLEURAL FLUID DIAGNOSIS: RT PLEURAL FLUID NEGATIVE FOR MALIGNANT EPITHELIAL CELLS. REACTIVE MESOTHELIAL CELLS ARE PRESENT. RED BLOOD CELLS ARE PRESENT. THIS INTERPRETATION INCLUDES EVALUATION OF A CELL BLOCK. MODERATE ACUTE AND CHRONIC INFLAMMATION WITHIN THE BACKGROUND. Pathologist ICD10: 02 R06.09 Signed out by: 02 Melina Chin MD, Pathologist NPI- [id number] Performed by: Sebas Chapin, Cylinder Dyer ([facility]) Gross description: 01 15ML, CLEAR YELLOW, 1 TP 1 CB /LCS 06/18/2020 1649 Local FLAG LEGEND: L-Low Normal,H-High Normal,LL-Alert Low,HH-Alert High <-Panic Low,>-Panic High,A-Abnormal,AA-Critical Abnormal Performed at: [address] [place] [address] Kedar Nix MD, [address] [address] Melina Chin MD, Specimen Comment: A courtesy copy of this report has been sent to [phone] Specimen Comment: [phone], Specimen Comment: Report sent to DR DANIELS,DR TIWARI / DR FAY Performed at: [address], [place], [place] [id number] MD Kedar Nix MD Phone: [phone]
--- NOTE | 2020-06-19 16:18 | NUR ---
INITIAL ASSESSMENT: LOW reviewed chart and spoke with nursing and attending physician. Pt was admitted from home due to NSTEMI/CHF. Pt with hx of left BKA and has prosthesis. Pt ambulates with a walker. Pt is on IV lasix. Pt had a throracentesis yesterday. Anticipate discharge home tomorrow. LOW met with pt at bedside. Introduced role of SW. Pt is alert/orientated x 4. Pt reports he lives at home alone. Prior to admission, pt was independent with ADLs. Pt has stairs down to the basement and he is able to navigate. Pt reports he is currently on service with [facility] for nursing/wound care. Pt would like to resume services when discharged. Pt's PCP is Dr. Stone Sheldon. assortment planner to fax referral to [facility]. LOW spoke with [facility] in intake to notify of pt's dicharge. [facility] is able to accept pt back on service and can have therapy see pt if ordered. LOW is following to assist as needed with discharge planning.
--- NOTE | 2020-06-19 16:55 | NUR ---
NO NEW EVENTS THROUGHOUT THE DAY. PT UP WITH STANDBY ASSIST AND USE OF PROTHESIS FOR LEFT LEG. PLANS TO DISCHARGE TOMORROW. CONTINUE DIURESIS. VSS. TALKED WITH SON REGARDING PTS PLAN OF CARE AT BEDSIDE.
--- NOTE | 2020-06-19 17:26 | NUR ---
FAXED REFERRAL TO [facility] RECEIVED CONFIRMATION AND LEFT MSG WITH INTAKE WILL F/U IN THE MORNING.
[2020-06-19 19:07] LABS: BODY FLUID ALBUMIN 0.7 g/dL (Not Estab.); BODY FLUID AMYLASE 20 U/L (()); BODY FLUID GLUCOSE 123 mg/dL (()); BODY FLUID LDH 78 IU/L (()); BODY FLUID PROTEIN 1.4 g/dL (())
[2020-06-19 20:55] VITALS: BP 133/60
[2020-06-20 01:03] LABS: HEMATOCRIT 38.8 % (42.0-52.0); HEMOGLOBIN 12.2 gm/dL (14.0-18.0); MCH 26.2 pg (26.0-34.0); MCHC 31.4 g/dL (28.0-37.0); MCV 83.5 fL (80.0-100.0); RBC 4.65 mil/uL (4.50-6.00); RDW 16.3 % (10.5-14.5); WBC 3.9 thou/uL (4.0-11.0)
[2020-06-20 01:26] LABS: CALCIUM 8.1 mg/dL (8.5-10.1); CREATININE 1.3 mg/dL (0.7-1.3)
--- NOTE | 2020-06-20 03:34 | NUR ---
ASSUMED CARE OF PATIENT AT 1900. PATIENT DENIED PAIN THROUGH NOC. SOME SOA WITH EXERTION NOTED AFTER PATIENT AMBULATED TO RESTROOM. PATIENT USED HOME CPAP THROUGH NOC. 1+ EDEMA IN LEFT ARM AND RLE NOTED AND CONTINUES ON LASIX BID. PATIENT APPEARS TO BE PROGRESSING TOWARDS GOALS.
[2020-06-20 03:44] VITALS: BP 160/82
[2020-06-20 08:02] VITALS: BP 141/75
--- NOTE | 2020-06-20 12:20 | NUR ---
ASSUMED CARE AT CHANGE OF SHIFT. ALERT X4, DENIES PAIN, DENIES SOB, STABLE WITH PROSTHEC LEFT LEG. HOME WITH SELF CARE AND [facility]. REVEIWED DC ORDERS. REMOVED IV AND TELE. ALL BELONGING GATHERED TO TAKE HOME. PROVIDED PCP INFORMATION TO FOLLOW UP IN 2 WEEKS
--- NOTE | 2020-06-20 13:06 | NUR ---
cm faxed d/c orders to [facility].
[2020-06-20 14:22] VITALS: BP 141/75
[2020-06-20 15:00] VITALS: BP 141/75
== END 2020-06-20 13:48 | disposition home health service (06) | DRG 291 ==
LOC: ER 18:14 → 2N 21:16 → EROBS 21:16 → 2N 21:55
PROVIDERS: Emergency Medicine; Nurse Practitioner; Nurse Practitioner Family; ADMIT Hospitalist; ATTEND Hospitalist
PROC: 0W993ZZ Drainage of Right Pleural Cavity, Percutaneous Approach (ICD-10-PCS; principal; 2020-06-18)
PROC: 5A09457 Assistance with Respiratory Ventilation, 24-96 Consecutive Hours, Continuous Positive Airway Pressure (ICD-10-PCS; 2020-06-18)
DX: I11.0 Hypertensive heart disease with heart failure (principal); J96.01 Acute respiratory failure with hypoxia; J91.8 Pleural effusion in other conditions classified elsewhere; J98.11 Atelectasis; L97.819 Non-pressure chronic ulcer of other part of right lower leg with unspecified severity; I50.23 Acute on chronic systolic (congestive) heart failure; I42.9 Cardiomyopathy, unspecified; E78.5 Hyperlipidemia, unspecified; E11.42 Type 2 diabetes mellitus with diabetic polyneuropathy; E11.51 Type 2 diabetes mellitus with diabetic peripheral angiopathy without gangrene; G47.33 Obstructive sleep apnea (adult) (pediatric); I08.1 Rheumatic disorders of both mitral and tricuspid valves; Z60.2 Problems related to living alone; G47.00 Insomnia, unspecified; N40.0 Benign prostatic hyperplasia without lower urinary tract symptoms; Z85.46 Personal history of malignant neoplasm of prostate; Z92.3 Personal history of irradiation; Z89.412 Acquired absence of left great toe; Z88.6 Allergy status to analgesic agent; Z95.5 Presence of coronary angioplasty implant and graft; Z95.810 Presence of automatic (implantable) cardiac defibrillator; Z87.891 Personal history of nicotine dependence; Z83.3 Family history of diabetes mellitus; Z82.49 Family history of ischemic heart disease and other diseases of the circulatory system
CPT/HCPCS: 10081

== ENCOUNTER → 2020-06-24 | Outpatient (CLI) | payer OTHER ==
[~2020-06-24] MED LIST changes: +BASAGLAR K100 UNIT/1 SUBQ; +CARVEDILOL25 MG PO; +CLOPIDOGREL75 MG PO; +FUROSEMIDE 40 M40 M1 PO; +IMDUR 30 MG TAB30 M1 PO; +NOVOLIN R100 UNIT/1 SUBQ; +SPIRONOLACTONE25 MG PO
== END ==
LOC: HYPER 11:06
PROVIDERS: ATTEND Emergency Medicine
DX: E11.621 Type 2 diabetes mellitus with foot ulcer (principal); L97.412 Non-pressure chronic ulcer of right heel and midfoot with fat layer exposed; S80.821D Blister (nonthermal), right lower leg, subsequent encounter; E11.51 Type 2 diabetes mellitus with diabetic peripheral angiopathy without gangrene; E11.40 Type 2 diabetes mellitus with diabetic neuropathy, unspecified; I87.2 Venous insufficiency (chronic) (peripheral); I25.10 Atherosclerotic heart disease of native coronary artery without angina pectoris; I25.5 Ischemic cardiomyopathy; I11.0 Hypertensive heart disease with heart failure; I50.22 Chronic systolic (congestive) heart failure; G47.33 Obstructive sleep apnea (adult) (pediatric); K21.9 Gastro-esophageal reflux disease without esophagitis; Z89.512 Acquired absence of left leg below knee; Z95.5 Presence of coronary angioplasty implant and graft; Z95.0 Presence of cardiac pacemaker; Z85.46 Personal history of malignant neoplasm of prostate; Z79.4 Long term (current) use of insulin; Z79.01 Long term (current) use of anticoagulants; W22.8XXD Striking against or struck by other objects, subsequent encounter

== ENCOUNTER → 2020-07-15 | Outpatient (CLI) | payer OTHER | LOC: HYPER 10:57 | PROVIDERS: ATTEND Emergency Medicine | DX: E11.621 Type 2 diabetes mellitus with foot ulcer (principal); L97.512 Non-pressure chronic ulcer of other part of right foot with fat layer exposed; I87.2 Venous insufficiency (chronic) (peripheral); L84 Corns and callosities; E11.51 Type 2 diabetes mellitus with diabetic peripheral angiopathy without gangrene; E11.40 Type 2 diabetes mellitus with diabetic neuropathy, unspecified; E11.69 Type 2 diabetes mellitus with other specified complication; I25.10 Atherosclerotic heart disease of native coronary artery without angina pectoris; I11.0 Hypertensive heart disease with heart failure; I50.22 Chronic systolic (congestive) heart failure; G47.33 Obstructive sleep apnea (adult) (pediatric); K21.9 Gastro-esophageal reflux disease without esophagitis; Z85.46 Personal history of malignant neoplasm of prostate; Z79.4 Long term (current) use of insulin; Z79.01 Long term (current) use of anticoagulants; Z89.512 Acquired absence of left leg below knee; Z95.0 Presence of cardiac pacemaker; Z95.5 Presence of coronary angioplasty implant and graft ==

== ENCOUNTER 2020-08-13 17:32 | Emergency (ER) | payer OTHER ==
[~2020-08-13] VITALS: Ht 182.9 cm; Wt 96.2 kg
[2020-08-13 18:46] LABS: BASOPHILS 1.1 % (0.0-2.0); EOSINOPHILS 3.2 % (0.0-3.0); HEMATOCRIT 42.1 % (42.0-52.0); HEMOGLOBIN 13.4 gm/dL (14.0-18.0); LYMPHOCYTES 13.8 % (24.0-44.0); MCH 26.2 pg (26.0-34.0); MCHC 31.8 g/dL (28.0-37.0); MCV 82.4 fL (80.0-100.0); MONOCYTES 9.4 % (1.0-8.0); PLATELET COUNT 166 thou/uL (150-400); POLYS 72.5 % (36.0-66.0); RBC 5.11 mil/uL (4.50-6.00); RDW 17.2 % (10.5-14.5); WBC 4.1 thou/uL (4.0-11.0)
[2020-08-13 18:57] LABS: CALCIUM 8.5 mg/dL (8.5-10.1); CREATININE 1.6 mg/dL (0.7-1.3); POTASSIUM 4.3 mmol/L (3.5-5.1)
[2020-08-13 18:59] LABS: APTT 25.1 Seconds (24.5-32.8); INR 1.2; PROTIME 12.4 Seconds (9.3-11.4)
[2020-08-13 19:07] LABS: ALBUMIN 2.9 g/dL (3.4-5.0); TOTAL BILIRUBIN 0.8 mg/dL (0.2-1.0); TOTAL PROTEIN 6.9 g/dL (6.4-8.2); TROPONIN-I 0.47 ng/mL (<0.06)
[2020-08-13] MEDS ORDERED: LAC-HYDRIN FIV226 GM TOP (19:50)
[2020-08-13 21:10] VITALS: BP 176/95
--- NOTE | 2020-08-14 12:17 | EKG ---
[facility] [place] [address] ELECTROCARDIOGRAM REPORT Name: MARY NIEVES [id number] Admission: 08/13/20 Attend Phys: Discharge: 08/13/20 Date of : 46 Report #: [id number] THIS REPORT FOR: cc: Sixto Sheldon,Mauri Ryder MD [facility] ~ THIS REPORT FOR: //name// [facility] ED Test Date: 2020-08-13 Test Time: 18:16:18 Pat Name: MARY NIEVES Department: Room: Gender: Human Resources Compliance Manager: [facility] : 1950 Requested By: Naresh De Luna Order Number: [id number] MD: Mauri Chavarria Measurements Intervals [place] Rate: 60 P: 111 SC: 171 QRS: 208 QRSD: 121 T: 97 QT: 483 QTc: 483 Interpretive Statements Atrial-ventricular dual-paced complexes No further analysis attempted due to paced rhythm Compared to ECG 06/17/2020 19:16:29 No significant changes Electronically Signed On 08-14-2020 12:17:15 DRY SAND MOLDER by Mauri Chavarria [email or web address] <ELECTRONICALLY SIGNED> By: Mauri Chavarria MD, FACC 08/14/20 1217 15 15 Mauri Chavarria MD, [facility] /EPI
== END 2020-08-13 21:14 | disposition home or self-care (01) ==
LOC: ER 17:32
PROVIDERS: Emergency Medicine
DX: J90 Pleural effusion, not elsewhere classified (principal); E88.09 Other disorders of plasma-protein metabolism, not elsewhere classified; E11.22 Type 2 diabetes mellitus with diabetic chronic kidney disease; I13.0 Hypertensive heart and chronic kidney disease with heart failure and stage 1 through stage 4 chronic kidney disease, or unspecified chronic kidney disease; N18.9 Chronic kidney disease, unspecified; I50.9 Heart failure, unspecified; R74.8 Abnormal levels of other serum enzymes; R60.0 Localized edema; E11.42 Type 2 diabetes mellitus with diabetic polyneuropathy; I25.10 Atherosclerotic heart disease of native coronary artery without angina pectoris; E78.5 Hyperlipidemia, unspecified; Z95.818 Presence of other cardiac implants and grafts; Z89.512 Acquired absence of left leg below knee; Z79.4 Long term (current) use of insulin; Z79.899 Other long term (current) drug therapy; Z88.5 Allergy status to narcotic agent

== ENCOUNTER 2020-08-14 17:35 | Inpatient (IN) | payer OTHER ==
[~2020-08-14] VITALS: Ht 182.9 cm; Wt 111.1 kg
[~2020-08-14 17:35] MED LIST changes: +LAC-HYDRIN FIV226 GM TOP
[2020-08-14 17:56] VITALS: BP 164/87
[2020-08-14 23:40] LABS: ABSOLUTE NEUTROPHILS 2.7 thou/uL (1.4-8.2); BASOPHILS 1.5 % (0.0-2.0); EOSINOPHILS 3.9 % (0.0-3.0); HEMATOCRIT 43.3 % (42.0-52.0); HEMOGLOBIN 13.7 gm/dL (14.0-18.0); LYMPHOCYTES 17.4 % (24.0-44.0); MCHC 31.6 g/dL (28.0-37.0); MCV 82.3 fL (80.0-100.0); MONOCYTES 9.8 % (1.0-8.0); PLATELET COUNT 182 thou/uL (150-400); POLYS 67.4 % (36.0-66.0); RBC 5.27 mil/uL (4.50-6.00); RDW 17.4 % (10.5-14.5); WBC 4.1 thou/uL (4.0-11.0)
[2020-08-14 23:58] LABS: CALCIUM 9.1 mg/dL (8.5-10.1); CREATININE 1.7 mg/dL (0.7-1.3); POTASSIUM 3.9 mmol/L (3.5-5.1); TROPONIN-I 0.46 ng/mL (<0.06)
[2020-08-15] VITALS (7 sets, daily range): BP systolic 144–164; BP diastolic 59–91
--- NOTE | 2020-08-15 00:29 | NUR ---
SON AWARE OF COVID POSITIVE DIAGNOSIS, AWARE OF VISITING HOURS. WENT HOME TO GET SLEEP
--- NOTE | 2020-08-15 04:32 | NUR ---
PT NEW ADMIT FROM ER AROUND 0340. AO X4. INITIAL VITALS STABLE . DENIES CHEST NAUSEA OR VOMITNG. REPORTS SOB WITH MILD EXERTION BUT PT O2 SATs 100% ON ROOM AIR. LUNG SOUNDS COURSE. VERBAL CONSENT OBTAINED DUE TO COVID +. PT ORIENTED TO ROOM. TELE MONITOR INITIATED. WILL CONTINUE TO MONITOR AND FOLLOW POC.
--- NOTE | 2020-08-15 07:41 | EKG ---
[facility] [address] [facility] [place] [address] ELECTROCARDIOGRAM REPORT Name: MARY NIEVES Room #: 351-P ADM IN M.R.#: [id number] Admission: 08/15/20 Attend Phys: Mikey Galvin MD Discharge: Date of : 46 Report #: [id number] THIS REPORT FOR: cc: Sixto Sheldon,Mauri Ryder MD [facility] ~ THIS REPORT FOR: //name// [facility] ED Test Date: 2020-08-14 Test Time: 23:02:29 Pat Name: MARY NIEVES Department: Room: [facility] Gender: M Field Crop Farm Worker: dionne akhtar : 1950 Requested By: Stone Shirley Order Number: [id number] MD: Mauri Chavarria Measurements Intervals [place] Rate: 61 P: 0 AR: 57 QRS: 186 QRSD: 130 T: 100 QT: 480 QTc: 484 Interpretive Statements Ventricular-paced complexes No further analysis attempted due to paced rhythm Compared to ECG 08/13/2020 18:16:18 AV dual-paced complex(es) or rhythm no longer present Electronically Signed On 08-15-2020 7:40:59 C APPLICATION DEVELOPER by Mauri Chavarria [email or web address] <ELECTRONICALLY SIGNED> By: Mauri Chavarria MD, FACC 08/15/20 0740 01 01 Mauri Chavarria MD, FACC /EPI
--- NOTE | 2020-08-15 10:34 | NUR ---
PT. HAD ALOT OF QUESTION'S THIS AM REGARDING COVID SPOKE WITH HIM FOR 20 MINITUES ON SUCH AND ANSWERD ALL THAT HE HAD. HE WAS PRAYINBG WITH HIS MOLD CLAMPER ON THE PHONE WHEN I LEFT THE ROOM. HE IS ASYMPTOMATIC OVERALL, BRETHING ON ROOMM AIR WITH ZERO DIFFICULTY. ATE ALL OF HIS BREAKFAST THIS AM. WE TURNED AND CLEANED UP HIS PERINEUM AREA WITH NO SKIN BREAKDOWN OBSERVED ON SUCH. IV FLUSHED WELL AND BLOOD RETURN OBTAINED.
--- NOTE | 2020-08-15 14:22 | NUR ---
INITIAL ASSESSMENT: LOW reviewed chart and spoke with nursing and attending physician. Pt was admitted from home due to CUAUHTEMOC/anasarca. Pt placed in Enhanced Isolation due to having positive COVID test. Pt is afebrile and not requiring O2. Pt is on IV lasix. ID/pulm/cardio consulted. LOW placed call several times to pt's room. No answer. Per chart, pt is alert/orientated x 4. Pt with hx of left BKA and has prosthesis. Pt ambulates with a walker. Pt lives at home alone. Prior to admission, pt was independent with ADLs. Pt has stairs down to the basement and he is able to navigate. Pt's PCP is Dr. Stone Sheldon. Pt has used [facility] in the past. LOW spoke with Lynn in intake at [facility]. Pt is not currently on service with , but [facility] is able to accept pt back on service if needed. No weekend discharge anticipated. LOW is following to assist as needed with discharge planning.
--- NOTE | 2020-08-16 03:57 | NUR ---
ASSESSED AT START OF SHIFT.PT IN BED. A&OX3* FORGETFULL. IV INTACT AND ABX GIVEN. BSG CHECKED 412 INSULIN ADMINISTERED CALLED ONCALL QUANTOMETER OPERATOR TO NOTIFY. BSG CHECKED AT MIDNIGHT 369. PT GET IVP STERIODS. PT INCONTINENT. STRAIGHT CATH Q6. BLADDERSCAN PRIO TO CATH 85CC. FALL PREC IN PLACE. PT SATS 100% ON RA. WILL CONT TO MONITOR.
[2020-08-16 05:39] VITALS: BP 144/86
[2020-08-16 06:04] LABS: HEMOGLOBIN 12.9 gm/dL (14.0-18.0); MCH 26.3 pg (26.0-34.0); MCHC 32.3 g/dL (28.0-37.0); MCV 81.5 fL (80.0-100.0); RBC 4.9 mil/uL (4.50-6.00); WBC 5.5 thou/uL (4.0-11.0)
[2020-08-16 06:36] LABS: ALBUMIN 2.7 g/dL (3.4-5.0); CALCIUM 8.9 mg/dL (8.5-10.1); CREATININE 1.7 mg/dL (0.7-1.3); MAGNESIUM 1.9 mg/dL (1.8-2.4); PHOSPHORUS 2.9 mg/dL (2.5-4.9); POTASSIUM 4.2 mmol/L (3.5-5.1)
[2020-08-16 06:37] LABS: ALBUMIN 2.8 g/dL (3.4-5.0); DIRECT BILIRUBIN 0.2 mg/dL (<0.1-0.2); TOTAL BILIRUBIN 0.5 mg/dL (0.2-1.0); TOTAL PROTEIN 6.5 g/dL (6.4-8.2)
[2020-08-16 08:27] VITALS: BP 148/81
[2020-08-16 11:19] VITALS: BP 137/76
[2020-08-16 17:28] VITALS: BP 143/76
[2020-08-16 20:25] VITALS: BP 151/83
[2020-08-17 04:51] VITALS: BP 163/95
[2020-08-17 06:33] LABS: ALBUMIN 2.8 g/dL (3.4-5.0); DIRECT BILIRUBIN 0.2 mg/dL (<0.1-0.2); TOTAL BILIRUBIN 0.5 mg/dL (0.2-1.0); TOTAL PROTEIN 7.2 g/dL (6.4-8.2)
[2020-08-17 07:23] LABS: ALBUMIN 2.8 g/dL (3.4-5.0); CALCIUM 9.1 mg/dL (8.5-10.1); CREATININE 1.9 mg/dL (0.7-1.3); PHOSPHORUS 3.4 mg/dL (2.5-4.9); POTASSIUM 4.7 mmol/L (3.5-5.1)
--- NOTE | 2020-08-17 07:34 | NUR ---
progress pt progressing a/o x4 forgetful at times. was very upset at the commercial sales consultant for telling him" his kidneys were shot and he was going to ". pt settled down after venting about it was pleasant and cooperative. accuchecks and ssi continue. tele intact reading av paced with rate at 60. possible dc today.
[2020-08-17 08:03] VITALS: BP 154/85
[2020-08-17 11:40] VITALS: BP 150/81
[2020-08-17 16:21] VITALS: BP 149/81
--- NOTE | 2020-08-17 17:58 | NUR ---
ASSUMED CARE OF PT AT SHIFT CHANGE. ASSESSMENTS CHARTED. MEDS GIVEN PER DEC. PT A&OX4, DOESN'T RETAIN INFORMATION WELL. NO C/O PAIN. INCONTINENT. ON RA, BECOMES SOA WHEN TALKING. PLAN TO CONTINUE TO DIURESE. WILL CONTINUE TO MONITOR AND FOLLOW POC.
[2020-08-17 19:54] VITALS: BP 136/81
[2020-08-17 23:00] VITALS: BP 148/55
[2020-08-18 05:03] LABS: ALBUMIN 2.6 g/dL (3.4-5.0); CALCIUM 8.9 mg/dL (8.5-10.1); CREATININE 1.8 mg/dL (0.7-1.3); DIRECT BILIRUBIN 0.2 mg/dL (<0.1-0.2); PHOSPHORUS 3.1 mg/dL (2.5-4.9); POTASSIUM 4.2 mmol/L (3.5-5.1); TOTAL BILIRUBIN 0.3 mg/dL (0.2-1.0); TOTAL PROTEIN 6.9 g/dL (6.4-8.2)
--- NOTE | 2020-08-18 07:04 | HC ---
[facility] [place] [address] CONSULTATION Name: MARY NIEVES Room #: 351-P ADM IN M.R.#: [id number] Admission: 08/15/20 Attend Phys: Mikey Galvin MD Discharge: Date of : 46 Report #: [id number] THIS REPORT FOR: cc: Sixto Sheldon,Van Mabry MD ~ DATE OF SERVICE: 08/15/2020 INFECTIOUS DISEASE CONSULTATION ATTENDING PHYSICIAN: Dr. Galvin. REASON FOR EVALUATION: COVID-19 positive. HISTORY OF PRESENT ILLNESS: Chart reviewed, the patient examined. This is a 70-year-old gentleman with extensive history including diabetes mellitus. He has cardiomyopathy with history of congestive heart failure, who presented with dyspnea describes it was progressive over the last 4-5 days. In addition to that, he felt like he was retaining fluid with swelling of his limbs. He was evaluated in the Emergency Room confirmed to have a positive COVID antigen test. Chest x-ray noted vascular congestion with diffuse infiltrate, edema, perhaps some bibasilar atelectasis and infiltrate as well. BNP was elevated at 5698. He is quite somnolent at this point, it is difficult to get a history. It is notable that he is maintained adequate saturations 100% on room air. ALLERGIES: LISTED TO CODEINE. MEDICATIONS: Include insulin glargine, furosemide, aspirin, clopidogrel, isosorbide mononitrate, methylprednisolone, heparin, hydralazine, carvedilol, pantoprazole, p.r.n. analgesics and antiemetics. PAST MEDICAL HISTORY: As above noted diabetes mellitus that has been complicated by some vasculopathy, coronary artery disease, history of hypertension, hyperlipidemia, peripheral neuropathy, previous below-knee amputation, history of prostate cancer with radiation treatment as well, does have cardiomyopathy with congestive heart failure. SOCIAL HISTORY: Former smoker. No ethanol. No illicit drug use. FAMILY HISTORY: Noncontributory. REVIEW OF SYSTEMS: Difficult to ascertain, given his somnolence, difficult to arouse. [facility] [address] [place] [address] CONSULTATION Name: LIZBETHMARY Room #: 351-P [facility] IN ..#: [id number] Admission: 08/15/20 Attend Phys: Mikey Galvin MD Discharge: Date of : 46 Report #: [id number] PHYSICAL EXAMINATION: GENERAL: He appears in moderate distress. He is quite somnolent and is obese, although appears somewhat chronically ill, undernourished. VITAL SIGNS: Temperature 97, pulse 59, respirations 16, blood pressure 161/94, again saturations 100% on room air. SKIN: Warm, dry, no rashes. HEENT: Otherwise, unremarkable. NECK: Supple, although it is thick. LUNGS: Diminished breath sounds. Few scattered crackles at the bases. HEART: Borderline bradycardic. I do not appreciate any murmur. ABDOMEN: Distended, soft, nontender. There are no peritoneal signs. EXTREMITIES: Distal ____ edema. GENITOURINARY AND RECTAL: Deferred. LABORATORY DATA: Followup chest x-ray showed right lung infiltrate, persistent bibasilar infiltrates and scattered left upper lobe infiltrate. Electrolytes: Sodium 142, potassium 3.9, chloride 105, bicarbonate is 29, anion gap of 8, BUN and creatinine 32 and 1.7, glucose of 238. Estimated GFR 48. CBC: White count of 4.1, H and H 13.7 and 43.3, platelets of 182. Electrolytes: Sodium 140, potassium 4.3, chloride 106, bicarbonate is 27, anion gap of 7, BUN and creatinine 31 and 1.6 previous. COVID antigen was positive. CBC: White count of 4.1, H and H 13.4 and 42.1, platelets of 166. ASSESSMENT: COVID testing positive, the patient certainly has multifocal issues including cardiac ____ infectious pneumonitis with COVID is problematic. I suspect may be progressively worsening at this point. I think it is reasonable to start remdesivir, was started on some anti-bacterials as well and see how he responds clinically. <ELECTRONICALLY SIGNED> By: Van Durbin MD 08/18/20 0704 1432 1212 Van Durbin MD /nt
[2020-08-18 07:34] VITALS: BP 149/89
--- NOTE | 2020-08-18 10:55 | NUR ---
PT SITTING IN BED EATING BREAKFAST WHEN ASSESSED AND MEDS GIVEN, DENIES PAIN, OFFERED URINAL AND BEDPAN TO PT. PT SAID YES, WHILE PUTTING HIM ON THE BEDPAN NOTICED PT HAD ALREADY DEFECATED MODERATE AMOUNT YET WAS UNAWARE OF IT, ANTHONY PAD WAS COMPLETELY SOILED, PT ALSO UNAWARE OF THAT. CHANGED, BEDBATH GIVEN BY INFORMATION SYSTEMS MANAGER, PT HAD SECOND BM WHILE BEING BATHED.
[2020-08-18 16:38] VITALS: BP 152/75
[2020-08-18 20:03] VITALS: BP 196/82
[2020-08-18 22:50] VITALS: BP 185/90
[2020-08-19 03:29] VITALS: BP 157/97
--- NOTE | 2020-08-19 03:36 | NUR ---
Patient making slow pregress towards outcome goals. Oxygenation optimal on room air, short of air with exertion. sats upper 90's. BP evelated, improved after PRN Hydralazine give, Incontinent of bladder and bowel. External male catheter applied. High fall risks, fall precautions in place. Calls out appropriately for needs. Edema unchanged
[2020-08-19 07:34] VITALS: BP 154/84
--- NOTE | 2020-08-19 08:21 | HC ---
[facility] [place] [address] CONSULTATION Name: MARY NIEVES Room #: 351-P ADM IN M.R.#: [id number] Admission: 08/15/20 Attend Phys: Mikey Galvin MD Discharge: Date of : 46 Report #: [id number] THIS REPORT FOR: cc: Sixto Sheldon,Lara Burgos MD ~ REASON FOR CONSULTATION: Elevated creatinine. REASON FOR PRESENTATION: Increasing shortness of breath. HISTORY OF PRESENT ILLNESS: This is a 70-year-old with long-standing diabetes mellitus, hypertension, peripheral vascular disease, osteomyelitis, status post left below-knee amputation. The patient presented to the Emergency Room reporting that he has been having significant worsening of his shortness of breath. He was found to have a COVID-19 infection and was admitted for further evaluation and management. He has an extremely elevated blood pressure on his arrival to the Emergency Room. His creatinine on arrival to the Emergency Room was 1.6. He had previous values as low as 1.1 and as high as 2.2 in the past. He suffers from all diabetic complications. Creatinine had risen up to 1.7, today mandating a Nephrology consultation. He denies any prior knowledge of chronic kidney disease. He denies nonsteroidal anti-inflammatory medication usage. PAST MEDICAL HISTORY: 1. Peripheral vascular disease. 2. Left foot osteomyelitis, status post amputation. 3. Hypertension. 4. Prostate cancer. 5. Coronary artery disease with multiple stents. 6. Cardiomyopathy. 7. Pleural effusion. 8. Status post automatic implantable cardioverter-defibrillator. 9. Status post thoracentesis. SOCIAL HISTORY: Ex-smoker. No drug or alcohol abuse. FAMILY HISTORY: Significant for heart disease, diabetes mellitus, hypertension. ALLERGIES: CODEINE. HOME MEDICATIONS: Include the followin. Carvedilol. 2. Lisinopril. 3. Furosemide. 4. Glargine insulin. [address] [address] CONSULTATION Name: MARY NIEVES Tru Room #: 351-P [facility] IN [facility]#: [id number] Admission: 08/15/20 Attend Phys: Mikey Galvin MD Discharge: Date of : 48 Report #: [id number] REVIEW OF SYSTEMS: GENERAL: No fever or chills. CARDIOVASCULAR: As per of present illness with significant edema. PULMONARY: Significant for shortness of breath. GASTROINTESTINAL: No nausea or vomiting. GENITOURINARY: No frequency, no urgency. MUSCULOSKELETAL: Status post left below-knee amputation. PHYSICAL EXAMINATION: VITAL SIGNS: Temperature 36.4, pulse rate is 64, respiratory rate is 18, blood pressure is 132/87. HEAD AND NECK: No jugular venous distention. CHEST: Minimal bilateral crackles. CARDIOVASCULAR: No rub detected. ABDOMEN: Soft, nontender. LOWER EXTREMITIES: Below-knee amputation on the left side. Minimal edema on the right side. LABORATORY DATA: Hemoglobin 13.7. Chemistry revealed sodium of 140, potassium 3.9, BUN 32, creatinine 1.7. Blood sugar is 355. COVID-19 evaluation was positive .Chest x-ray, minimal edema. ASSESSMENT, IMPRESSION, PLAN: 1. Chronic kidney disease. 2. Acute kidney injury. 3. COVID-19 positive infection. 4. Diabetes mellitus. 5. Uncontrolled hypertension. 6. The patient's rise in the creatinine coincides with his current COVID-19 infection, aggressive reduction of his blood pressure. 7. At this point, we will initiate the patient on very minimal oral diuretic regimen given his pulmonary vascular congestion and lower extremity edema. He had close to normal kidney function in the past; however, with his current diabetes mellitus and noncompliance with his blood pressure medication, I expect that he had some element of chronic kidney disease. 8. Treatment for his COVID-19. 9. Resume his blood pressure medications. 10. Continue to follow daily electrolytes. 11. [place] [address] CONSULTATION Name: MARY NIEVES Room #: 351-P [facility] IN [facility]#: [id number] Admission: 08/15/20 Attend Phys: Mikey Galvin MD Discharge: Date of : 46 Report #: [id number] 12. Monitor urine output. 13. We will continue to follow during his hospital stay. <ELECTRONICALLY SIGNED> By: Lara Walls MD 08/19/20 08 1036 0 Lara Walls, /carito
[2020-08-19 11:24] VITALS: BP 149/74
[2020-08-19 13:29] VITALS: BP 149/74
--- NOTE | 2020-08-19 13:41 | NUR ---
DISCHARGE NOTE: LOW reviewed chart and spoke with nursing and attending physician. Pt remains in Enhanced Isolation due to COVID-19. Pt is afebrile and not requiring O2. Pt will complete course of Remdesivir today. Pt is medically stable for discharge home today. LOW spoke with pt via phone. Introduced role of SW. Pt is alert/orientated x 4. Pt reports he does lives at home alone and has good family support. LOW discussed discharge plan. Pt is agreeable with plan and would like to use [facility] again for services. LOW confirmed pt's home address, phone number and PCP. LOW faxed clinical info to [facility] and spoke with Lynn in intake to notify of referral and pt's discharge. Awaiting finalized discharge orders/summary at this time. Pt's son will be able to provide transportation home. LOW is following to finalize discharge.
[2020-08-19 15:22] VITALS: BP 152/89
[2020-08-19 16:18] LABS: ALBUMIN 2.4 g/dL (3.4-5.0); CALCIUM 8.7 mg/dL (8.5-10.1); CREATININE 1.5 mg/dL (0.7-1.3); DIRECT BILIRUBIN 0.2 mg/dL (<0.1-0.2); PHOSPHORUS 3.6 mg/dL (2.5-4.9); POTASSIUM 4.1 mmol/L (3.5-5.1); TOTAL BILIRUBIN 0.4 mg/dL (0.2-1.0); TOTAL PROTEIN 6.3 g/dL (6.4-8.2)
[2020-08-19] MEDS ORDERED: VITAMIN B-1100 M2 PO (17:55)
[2020-08-19] MEDS ORDERED: ZINC SULFATE 2220 MG PO (17:55)
[2020-08-19] MEDS ORDERED: ADULT LOW DOSE81 MG PO (17:55)
[2020-08-19] MEDS ORDERED: ACETAMINOPHEN325 M1 PO (17:55)
[2020-08-19] MEDS ORDERED: ACEROLA C500 MG PO (17:55)
[2020-08-19] MEDS ORDERED: HYDRALAZINE 5050 MG PO (17:55)
[2020-08-19] MEDS ORDERED: VITAMIN D325 MC1 PO (17:55)
--- NOTE | 2020-08-19 18:39 | NUR ---
ASSUMED PATIENT CARE AT 0800. A/O X4. GENERLIZED EDEMA 3+. MAX ASSISTED UP. DC ORDER FAX ED TO . DC TO HOME SOON.
== END 2020-08-19 19:30 | disposition home health service (06) | DRG 177 ==
LOC: ER 17:35 → EROBS 08-15 00:22 → 3W 08-15 00:22
PROVIDERS: Emergency Medicine; Internal Medicine Nephrology; Nurse Practitioner Family; Specialist; ADMIT Hospitalist; ATTEND Hospitalist
PROC: XW033E5 Introduction of Remdesivir Anti-infective into Peripheral Vein, Percutaneous Approach, New Technology Group 5 (ICD-10-PCS; principal; 2020-08-15)
DX: U07.1 COVID-19 (principal); J12.9 Viral pneumonia, unspecified; I50.23 Acute on chronic systolic (congestive) heart failure; J96.01 Acute respiratory failure with hypoxia; N17.9 Acute kidney failure, unspecified; I42.9 Cardiomyopathy, unspecified; I13.0 Hypertensive heart and chronic kidney disease with heart failure and stage 1 through stage 4 chronic kidney disease, or unspecified chronic kidney disease; M31.9 Necrotizing vasculopathy, unspecified; R77.8 Other specified abnormalities of plasma proteins; I25.10 Atherosclerotic heart disease of native coronary artery without angina pectoris; N18.9 Chronic kidney disease, unspecified; E11.51 Type 2 diabetes mellitus with diabetic peripheral angiopathy without gangrene; E11.22 Type 2 diabetes mellitus with diabetic chronic kidney disease; G47.33 Obstructive sleep apnea (adult) (pediatric); E78.5 Hyperlipidemia, unspecified; E11.42 Type 2 diabetes mellitus with diabetic polyneuropathy; Z89.412 Acquired absence of left great toe; Z88.6 Allergy status to analgesic agent; Z85.46 Personal history of malignant neoplasm of prostate; Z92.3 Personal history of irradiation; Z95.5 Presence of coronary angioplasty implant and graft; Z95.810 Presence of automatic (implantable) cardiac defibrillator; Z87.891 Personal history of nicotine dependence; Z83.3 Family history of diabetes mellitus; Z82.49 Family history of ischemic heart disease and other diseases of the circulatory system; Z79.899 Other long term (current) drug therapy; Z79.82 Long term (current) use of aspirin
CPT/HCPCS: 10879

== ENCOUNTER 2020-08-28 15:18 | Inpatient (IN) | payer OTHER ==
[~2020-08-28] VITALS: Ht 182.9 cm; Wt 100.8 kg
[2020-08-28 15:18] VITALS: BP 150/90
[~2020-08-28 15:18] MED LIST changes: +ACEROLA C500 MG PO; +ACETAMINOPHEN325 M1 PO; +HYDRALAZINE 5050 MG PO; +VITAMIN B-1100 M2 PO; +VITAMIN D325 MC1 PO; +ZINC SULFATE 2220 MG PO
[2020-08-28 16:27] LABS: EOSINOPHILS 0.6 % (0.0-3.0); HEMATOCRIT 40.7 % (42.0-52.0); HEMOGLOBIN 12.9 gm/dL (14.0-18.0); LYMPHOCYTES 8.1 % (24.0-44.0); MCH 25.8 pg (26.0-34.0); MCHC 31.8 g/dL (28.0-37.0); MCV 81.2 fL (80.0-100.0); PLATELET COUNT 100 thou/uL (150-400); POLYS 80.3 % (36.0-66.0); RBC 5.02 mil/uL (4.50-6.00)
[2020-08-28 16:50] LABS: CALCIUM 8.8 mg/dL (8.5-10.1); CREATININE 1.7 mg/dL (0.7-1.3); POTASSIUM 4.4 mmol/L (3.5-5.1)
[2020-08-28 16:53] LABS: ALBUMIN 2.8 g/dL (3.4-5.0); DIRECT BILIRUBIN 0.3 mg/dL (<0.1-0.2); TOTAL BILIRUBIN 0.7 mg/dL (0.2-1.0); TOTAL PROTEIN 6.9 g/dL (6.4-8.2)
[2020-08-28 16:59] LABS: TROPONIN-I 0.94 ng/mL (<0.06)
[2020-08-28 23:19] VITALS: BP 179/102
[2020-08-28 23:48] VITALS: BP 182/107
[2020-08-29] VITALS (8 sets, daily range): BP systolic 117–183; BP diastolic 67–99
--- NOTE | 2020-08-29 04:32 | NUR ---
PT ADMITTED FROM ER FROM CHF EXERCEBATION AND ELEVATED TROPONIN, PT IS AWAKE, ALERT AND ORIENTED, ADMISSION ASSESSMENT AND HISTORY COMPLETED, VPACED ON THE MONITOR. BP AND BLOOD SUGAR ELEVATED, VICE PRESIDENT OF TALENT ACQUISITION NOTIFIED, ORDERS RECEIVED AND IMPLEMENTED, RECHECKS COMMUNICATED BACK TO VICE PRESIDENT OF TALENT ACQUISITION, PT ON 2L NC, O2 SATS STABLE, DENIES HAVING CONCERNS, WILL CONTINUE TO MONITOR
[2020-08-29 04:54] LABS: CALCIUM 8.6 mg/dL (8.5-10.1); CREATININE 1.6 mg/dL (0.7-1.3); HEMATOCRIT 41.8 % (42.0-52.0); HEMOGLOBIN 13.2 gm/dL (14.0-18.0); MCH 25.6 pg (26.0-34.0); MCHC 31.7 g/dL (28.0-37.0); MCV 80.9 fL (80.0-100.0); POTASSIUM 3.9 mmol/L (3.5-5.1); RBC 5.16 mil/uL (4.50-6.00)
--- NOTE | 2020-08-29 09:43 | NUR ---
Case opened to follow for dc planning. Pt known to from recent admission. He discharged home with per [facility] on 08/19/20. [facility] is aware of his admission and can accept him for readmission [facility]. They will need a confirm call and orders faxed. The pt lives at home alone and is indep with a rwalker and w/c. He had good family support and his sons check on him regularly. The pt reports continued respiratory issues s/p Covid with his orignial pos test date on 08-14-20. He is no longer in ISO. Pt now on 2lnc o2. He does not have this at home. Will follow along and resume his hh services at dc. Should the pt need oxygen at dc please contact [facility] and fax them his facesheet, quailfying sats and a script. [facility] [phone],fax [phone], [facility] [phone],fax [phone]
--- NOTE | 2020-08-29 16:38 | NUR ---
I have reviewed the documentation by FIORELLA ARREDONDO from 08/29/20 to 08/29/20 and I concur with it. KRAIG STEWART, PT, DPT
--- NOTE | 2020-08-29 17:50 | NUR ---
ASSUMED CARE PT SHIFT CHANGE. ASSESSMENTS CHARTED.MEDS GIVEN PER MAR. PT ALERT AND ORIENTED.VSS. DENIES PAIN. O2 SATS WNL ON RA. PT UP WITH PHYS THERAPYTOLERATING WELL. APPETITE ADEQUATE. DENIES SOB. PT UP TO CHAIR THIS SHIFT TOELRATING WELL. PT CURRENTLY EATING DINNER IN ROOM, DENIES NEEDS/CONCERNS. WILL CONT TO MONITOR AND FOLLOWPOC.
[2020-08-30 04:45] VITALS: BP 132/83
[2020-08-30 05:12] LABS: URINE BILIRUBIN NEGATIVE (Negative); URINE BLOOD 1+ (Negative); URINE CLARITY CLEAR; URINE COLOR YELLOW; URINE GLUCOSE-RANDOM* TRACE (Negative); URINE KETONES NEGATIVE (Negative); URINE LEUKOCYTES-REFLEX NEGATIVE (Negative); URINE NITRITE-REFLEX NEGATIVE (Negative); URINE PROTEIN (DIPSTICK) 3+ (Negative); URINE SPECIFIC GRAVITY 1.025 (1.005-1.035); URINE UROBILINOGEN 0.2 E.U./dl (0.2-1.0)
[2020-08-30 05:40] LABS: BACTERIA-REFLEX 1-9 Few /HPF (None Seen); HYALINE CASTS 4-10 Moderate /LPF (None Seen); MUCUS 4-6 Moderate strn/LPF (None Seen); SQUAMOUS 0-3 Few /LPF (0-3); URINE RBC 3-10 Few /HPF (0-2); URINE WBC-REFLEX 0-5 Rare /HPF (0-5)
[2020-08-30 05:41] LABS: CRYSTALS None Seen /LPF (None Seen)
--- NOTE | 2020-08-30 07:34 | NUR ---
URINARY RETENTION NOTED THIS AM. STRAIGHT CATH X 1 PER WOOL SCOURER ORDER WITH ONETIME FLOM[facility]. ENDORSED FOR RECHECK AT 1030. UA RESULTS REPORTED TO EUNICE QUEVEDO VIA TELEPHONE THIS AM. NNO AT THIS TIME. NO S/S ACUTE DISTRESS NOTED OR REPORTED AT THIS TIME. CARE TRANSFERRED TO SHIKHA SALGUERO AT THIS TIME.
[2020-08-30 08:36] VITALS: BP 130/80
--- NOTE | 2020-08-30 09:29 | 2DMMODE ---
[facility] [place] [address] 2 D/M-MODE ECHOCARDIOGRAM Name: MARY NIEVES Room #: 218-P ADM IN M.R.#: [id number] Admission: 08/28/20 Attend Phys: Polo Kim MD Discharge: Date of : 46 Report #: [id number] THIS REPORT FOR: cc: Sixto Sheldon,Galo Rojas MD ~ APPROVED REPORT Study performed: 08/30/2020 08:56:05 EXAM: Limited 2D, Doppler, and color-flow Echocardiogram Patient Location: Bedside Room #: 218 Status: on-call BSA: 2.22 HR: 60 bpm BP: 132/83 mmHg Indications Limited follow up echo for LV function. Short of breath. History COVID+ Hx: AICD, CAD, Stent, CHF, HTN, HLP, DM, amputee. Aortic Valve AoV Peak Renato.: 1.00 m/s AO Peak Gr.: 4.02 mmHg Tricuspid Valve TR Peak Renato.: 3.65 m/s RAP Estimate: 15.00 mmHg TR Peak Gr.: 53.20 mmHg PA Pressure: 68.00 mmHg Left Ventricle The left ventricle is normal size. Mild concentric left ventricular hypertrophy. Left ventricular systolic function is severely decreased. LVEF is 20-25%. This study is not technically sufficient to allow evaluation of the LV diastolic function. Right Ventricle Right ventricle is hypokinetic. Device lead is present in the right ventricle. Atria Left atrium is dilated. Right atrium is borderline dilated. [facility] [address] [place] [address] 2 D/M-MODE ECHOCARDIOGRAM Name: MARY NIEVES Room #: 218-P [facility] IN .R#: [id number] Admission: 08/28/20 Attend Phys: Polo Kim, Discharge: Date of : 46 Report #: [id number] Aortic Valve Aortic valve leaflets are mildly thickened. Trace aortic regurgitation. There is no aortic valvular stenosis. Mitral Valve Mitral valve leaflets are thickened. Moderate mitral regurgitation. Tricuspid Valve The tricuspid valve is normal in structure. Moderate tricuspid regurgitation. Estimated PAP is 65-70mmHg. Great Vessels IVC is dilated and collapses <50% with inspiration. Pericardium There is no pericardial effusion. <Conclusion> The left ventricle is normal size. LVEF is 20-25%. Right ventricle is hypokinetic. Device lead is present in the right ventricle. Left atrium is dilated. Right atrium is borderline dilated. Aortic valve leaflets are mildly thickened. Trace aortic regurgitation. Mitral valve leaflets are thickened. Moderate mitral regurgitation. The tricuspid valve is normal in structure. Moderate tricuspid regurgitation. Estimated PAP is 65-70mmHg. There is no pericardial effusion. <ELECTRONICALLY SIGNED> By: Galo Adhikari MD 08/30/20928 8 8 Galo Adhikari MD /INF
[2020-08-30 09:50] LABS: CALCIUM 8.8 mg/dL (8.5-10.1); CREATININE 1.4 mg/dL (0.7-1.3); POTASSIUM 3.8 mmol/L (3.5-5.1)
[2020-08-30 11:30] VITALS: BP 146/82
--- NOTE | 2020-08-30 14:40 | NUR ---
AAOX4. CALM, APPROPRIATE. AV PACED PER TELE. STOOD WITH PT. UA NOTED. DENIES CP, SOA. EF 34% NOTED. WILL CONTINUE TO FOLLOW CLOSELY.
[2020-08-30 16:00] VITALS: BP 139/68
[2020-08-30 20:55] VITALS: BP 133/65
--- NOTE | 2020-08-31 01:16 | NUR ---
PT IS ALERT AND ORIENTED X 4. AFEBRILE. DENIES CHEST PAIN. STABLE@ 100% ON ROOM AIR.L ARM SWOLLEN, ELEVATED ON PILLOW. STUMP CUPOLA MELTER HELPER TO LE, RLE NOTED WITH SCATTERED SCABS. SWELLING NOTED TO UPPER THIGHS AND SCROTAL AREA.PT DENIES PAIN.WILL CONTINUE WITH POC.
[2020-08-31 05:00] VITALS: BP 121/74
[2020-08-31 08:30] VITALS: BP 125/69
[2020-08-31 12:00] VITALS: BP 141/74
[2020-08-31 16:00] VITALS: BP 138/75
--- NOTE | 2020-08-31 18:44 | NUR ---
ASSUMED CARE AT CHANGE OF SHIFT. ALERT X3, FROM HOME ALONE, COVID + 08/14, COUGH, 2L NASAL CANNULA, DENIES CHEST PAIN, AVPACED/PACEMAKE LEFT CHEST, INONTINENT OF BLADDER AND BOWEL. BM TODAY. EDEMA TO RIGHT FA WITH DRESSING INTACT AND ELEVATED. RIGHT BKA WITH STUMP SYSTEM ARCHIVE ANALYST. CALL LIGHT AND AND PERSONAL ITEMS IN REACH.
[2020-08-31 19:49] VITALS: BP 154/83
--- NOTE | 2020-09-01 03:55 | NUR ---
PT CARE ASSUMED WITH PT IN BED WATCHING TV.PT IS A/OX4.PT HAS A RT BKA AND STUMP IN PLACE.PT IS INCONTINET TO B/B.PT IS MAX ASSIST.PT IS ACCUCHECK ACHS AND ON LOW SSI.PT IS COVID POSITIVE SINCE 08/14/2020.PT HAS A PACEMAKER ON LT CHEST.PT ON 2L OF O2 PER NC.WILL CONTINUE TO MONITOR PER POC
[2020-09-01 04:59] VITALS: BP 159/81
--- NOTE | 2020-09-01 07:26 | EKG ---
[facility] [place] [address] ELECTROCARDIOGRAM REPORT Name: STEPHANE NIEVESALD Tru Room #: 218-P ADM IN M.R.#: [id number] Admission: 08/28/20 Attend Phys: Polo Kim MD Discharge: Date of : 46 Report #: [id number] THIS REPORT FOR: cc: Sixto Sheldon Matthew DO Santiago, Patrick MD [facility] ~ THIS REPORT FOR: //name// [facility] ED Test Date: 2020-08-28 Test Time: 16:53:44 Pat Name: MARY NIEVES Department: Room: 218 Gender: M Title One Reading Teacher: REBECCA : 1950 Requested By: Raquel Bo Order Number: [id number] MD: Mauri Chavarria Measurements Intervals [place] Rate: 60 P: 61 NC: 153 QRS: 189 QRSD: 117 T: 103 QT: 511 QTc: 511 Interpretive Statements Ventricular-paced complexes No further analysis attempted due to paced rhythm Compared to ECG 08/14/2020 23:02:29 No significant changes Electronically Signed On 09-01-2020 7:26:42 [employer] by Mauri Chavarria [email or web address] <ELECTRONICALLY SIGNED> By: Mauri Chavarria MD, FACC 09/01/20 0726 52 52 Mauri Chavarria MD, FAC /EPI
[2020-09-01 08:15] VITALS: BP 148/100
[2020-09-01 08:49] LABS: CREATININE 1.6 mg/dL (0.7-1.3); POTASSIUM 3.7 mmol/L (3.5-5.1)
[2020-09-01 09:01] LABS: CALCIUM 8.2 mg/dL (8.5-10.1)
[2020-09-01 11:45] VITALS: BP 139/79
--- NOTE | 2020-09-01 14:35 | NUR ---
I have reviewed the documentation by FIORELLA ARREDONDO from 09/01/20 to 09/01/20 and I concur with it. KRAIG STEWART, PT, DPT
--- NOTE | 2020-09-01 16:38 | NUR ---
PATIENT IN PROCESS OF ACUTE REHAB EVAL. POSSIBLE DC TO 5n IN AM.
[2020-09-01 16:50] VITALS: BP 149/83
[2020-09-01 20:06] VITALS: BP 169/83
--- NOTE | 2020-09-02 03:41 | NUR ---
CARE ASSUMED 190. PT ALERT AND ORIENTED. VITALS STABLE. DENIES PAIN, CHEST PAIN, NAUSEA OR VOMITING. PT VERY DIFFICULT TO TRANSFER FROM BED TO CHAIR AND VISE VERSA. SECURITY SUMMONED TO HELP TO TRANSFER PATIENT BACK TO BED. CONDOM CAHETER ATTACHED FOR NOC INCONTINENCE. WILL CONTINUE TO MONITOR AND FOLLOW POC.
[2020-09-02 04:10] VITALS: BP 176/84
[2020-09-02 05:11] LABS: CREATININE 1.3 mg/dL (0.7-1.3); POTASSIUM 3.7 mmol/L (3.5-5.1)
[2020-09-02 08:20] VITALS: BP 150/87
[2020-09-02 09:12] VITALS: BP 150/87
[2020-09-02] MEDS ORDERED: LISINOPRIL10 MG PO (12:09)
[2020-09-02] MEDS ORDERED: DEMADEX20 MG PO (12:09)
[2020-09-02] MEDS ORDERED: AMMONIUM LACTA226 GM TOP (12:12)
[2020-09-02] MEDS ORDERED: LANTUS SUBQ (12:12)
[2020-09-02] MEDS ORDERED: GENTAMICIN SULF15 GM TOP (12:12)
--- NOTE | 2020-09-02 12:17 | NUR ---
Patient transfering to Rehab today. Patient awake and alert. Ate 50% of lunch. Covering blood sugars with SSI. Lasix giving. Patient is wearing condom cath. Report given to Rehab. Will transfer after lunch. See documentation on interventions for assessment details. Patient is progressing towards goals.
--- NOTE | 2020-09-02 12:34 | NUR ---
Patient to discharge to 5N today.
== END 2020-09-02 14:43 | DRG 291 ==
LOC: ER 15:18 → EROBS 18:54 → 2N 18:54
PROVIDERS: Emergency Medicine; Hospitalist; Nurse Practitioner; Nurse Practitioner Family; ADMIT Internal Medicine; ATTEND Internal Medicine
DX: I13.0 Hypertensive heart and chronic kidney disease with heart failure and stage 1 through stage 4 chronic kidney disease, or unspecified chronic kidney disease (principal); J96.01 Acute respiratory failure with hypoxia; I50.43 Acute on chronic combined systolic (congestive) and diastolic (congestive) heart failure; U07.1 COVID-19; I42.9 Cardiomyopathy, unspecified; N18.30 Chronic kidney disease, stage 3 unspecified; I25.10 Atherosclerotic heart disease of native coronary artery without angina pectoris; E78.5 Hyperlipidemia, unspecified; E11.42 Type 2 diabetes mellitus with diabetic polyneuropathy; E11.51 Type 2 diabetes mellitus with diabetic peripheral angiopathy without gangrene; E11.22 Type 2 diabetes mellitus with diabetic chronic kidney disease; G20 Parkinson's disease; I07.1 Rheumatic tricuspid insufficiency; L30.8 Other specified dermatitis; E55.9 Vitamin D deficiency, unspecified; R63.4 Abnormal weight loss; Z60.2 Problems related to living alone; Z92.3 Personal history of irradiation; Z95.5 Presence of coronary angioplasty implant and graft; Z79.82 Long term (current) use of aspirin; Z85.46 Personal history of malignant neoplasm of prostate; Z87.891 Personal history of nicotine dependence; Z79.4 Long term (current) use of insulin; Z89.512 Acquired absence of left leg below knee; Z79.01 Long term (current) use of anticoagulants; Z79.899 Other long term (current) drug therapy; Z88.5 Allergy status to narcotic agent; Z68.30 Body mass index [BMI] 30.0-30.9, adult
CPT/HCPCS: 10081

== ENCOUNTER 2020-09-02 09:51 | Inpatient (IN) | payer OTHER ==
[~2020-09-02] VITALS: Ht 182.9 cm; Wt 95.7 kg
--- NOTE | ~2020-09-02 | HC ---
[facility] [place] [address] CONSULTATION Name: MARY NIEVES Room #: 504-1 ADM IN M.R.#: [id number] Admission: 09/02/20 Attend Phys: Lawrence Chatterjee MD Discharge: Date of : 48 Report #: [id number] THIS REPORT FOR: cc: Sixto Sheldon Matthew DO Deutch, Neal B. PhD ~ DATE OF SERVICE: 09/06/2020 BEHAVIORAL STATUS EXAM ATTENDING PHYSICIAN: Lawrence Chatterjee MD BALANCE RECESSER: Axel Rain, PhD CLINICAL PRESENTATION: The patient is a 70-year-old -[place] male admitted to the hospital on 08/28/2020 with worsening shortness of breath. He had been diagnosed with COVID-19 on 08/14/2020 and was being treated at home. The patient was initially admitted to the CCU and started on IV diuresis and most recent echo checked. He had an echocardiogram with an ejection fraction of 20-25% and moderate tricuspid regurgitation. He has had a significant weight loss. His history includes a left gjzqo-ppn-byph amputation. His assessment on admission to the rehab unit is congestive heart failure, ejection fraction of 20-25%, medical complexity with generalized debility, acute hypoxic respiratory failure, history of left tesxd-map-vhxw amputation, history of type 2 diabetes mellitus, wounds to the forearm and right lower extremity, and the recent COVID-19 positive 08/14/2020. Prior to this most recent admission, he is reported to have been living alone in his own home. The patient had 3 children. 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 The patient is a high school graduate with 1 year of college. The patient does not report a prior history of treatments for depression or anxiety. He indicates that he was independent with instrumental activities of daily living prior to this most recent medical event that includes driving. TECHNIQUES UTILIZED: Clinical interview, review of medical records, staff consultation and behavioral observation, mini mental status exam 2 standard version, clock drawing and verbal fluency assessment. EXAMINATION FINDINGS: The patient was alert and cooperative with the assessment. He accurately described events surrounding his hospitalization. He does not report auditory or visual hallucinations. There is no report of suicidal ideation. He denies subjective feelings of anxiety or depression. He also does not report problems with sleep, appetite, memory or word finding. [facility] [address] [place] [address] CONSULTATION Name: LIZBETHMARY Tru Room #: 504-1 [facility] IN .R.#: [id number] Admission: 09/02/20 Attend Phys: Lawrence Chatterjee MD Discharge: Date of : 46 Report #: [id number] There is no history of alcohol, tobacco, or marijuana abuse reported. The patient does indicate a loss of sense of flavor and smell. His performance on the MMSE 2 brief version was extremely low with a raw score of 11/16. He was 3/3 for initial registration, 3/5 for orientation to time, 5/[address] and 0/3 for immediate recall of 3 items after a brief time delay and distraction. Performance on the MMSE 2 standard version was extremely low with a raw score of 20/30, which is a T score of 23 and percentile rank of less than 1. He was 1/5 for serial sevens, 2/2 for naming, 1/1 for repetition, 3/3 for auditory comprehension. He could read and follow single command. He was able to write a sentence. The patient was unable to copy a simple geometric design. The patient was also unable to draw a picture of a clock and set the hands at a designated time. Letter fluency was extremely low with a raw score of 8, T score of 19 and percentile rank of less than 1. Category fluency was extremely low with a T score of 27 and percentile rank of 1. Overall, total fluency was extremely low with a T score of 21 and percentile rank of less than 1. The patient is presenting with moderate to severe deficits in cognitive functioning. Impairment is noted with immediate recall, sustained concentration and attention, and visual spatial construction. Severe deficits in executive functioning are also suggested. DIAGNOSTIC IMPRESSION: Major neurocognitive disorder (dementia), unspecified, without behavior disorder - poor insight, likely the moderate range (indicating assistance will be needed with aspects of basic and instrumental activities of daily living). RECOMMENDATIONS: The patient will require assistance in the management of medication, finances and nutrition. Decreased insight into his deficits places him at an increased safety risk. Driving should be discontinued. The patient may benefit from a followup neuropsychological evaluation in approximately 6 months to clarify cognitive status. Use of speech therapy for both cognitive stimulation and assistance in compensatory strategies. Family education will be necessary in order for them to provide adequate support. [address] [address] CONSULTATION Name: MARY NIEVES Room #: 504-1 [facility] IN Sal#: [id number] Admission: 09/02/20 Attend Phys: Lawrence Chatterjee MD Discharge: Date of : 46 Report #: [id number] Thank you very much for allowing me to provide the consultation on this patient. By: [id number] Axel Rain, PhD /nt
[2020-09-02] MEDS ORDERED: LISINOPRIL10 MG PO (12:09)
[2020-09-02] MEDS ORDERED: DEMADEX20 MG PO (12:09)
[2020-09-02] MEDS ORDERED: GENTAMICIN SULF15 GM TOP (12:12)
[2020-09-02] MEDS ORDERED: LANTUS SUBQ (12:12)
[2020-09-02] MEDS ORDERED: AMMONIUM LACTA226 GM TOP (12:12)
--- NOTE | 2020-09-02 15:27 | NUR ---
1500 PATIENT ADMITTED TO ROOM 504 [facility] DX OF CHF. PATIENT IS ALERT AND ORIENTED X4. PATIENT BILLY'S. PATIENT HAS LEFT BKA. PATIENT HAS GENERALIZED SWELLING. LUNGS ARE COARSE AND DEMINISHED IN THE BASES BILATERALLY. PATIENT IS ON 02 AT 2L PER N/C. PATIENT USES CPAP AT NOC. PATIENT HAS OCCASIONAL COUGH. ABD IS SOFT WITH BSX4. PATIENT IS INCONTINENT OF URINE AND HAS ROBERTO CATHETER IN PLACE, DRAINING DENNIS COLORED URINE. FALL AND SAFETY PROTOCOLS IN [facility]. DENIES PAIN AT THIS TIME. PT/OT/[place] IN A.M. CALL LIGHT IN REACH. PROTHESIS OFF. PATIENT HAS S.L. IN HIS RIGHT A/C. PATIENT HAS WOUND TO HIS LEFT FORARM FROM PREVIOUS I.V. STICKS FROM PREVIOUS ADMISSION. WILL CONTINUE TO MONITER.
--- NOTE | 2020-09-02 18:23 | NUR ---
ASSUMED CARE OF PT AT 1600. RECEIVED REPORT FROM STEPHANE. PT IS IN BED, SON IS AT THE BEDSIDE. AFTER DINNER, PT SEEN TO BE CHEWING ON MEAT FROM DINNER TRAY FOR SEVERAL MINUTES AFTER TRAY HAD BEEN REMOVED. PT STATED THAT HE WAS HAVING DIFFICULTY CHEWING AND SWALLOWING MEAT. PT REMOVED MEAT AFTER INITIALLY REFUSING AND WAS OFFERED PUDDING INSTEAD. FALL PRECAUTIONS IN PLACE AND NURSING WILL CONTINUE TO MONITOR.
[2020-09-02 19:30] VITALS: BP 136/68
--- NOTE | 2020-09-03 00:09 | NUR ---
PT ALERT AND ORIENTED X 4. INCONT OF URINE IN LARGE AMT AFTER CONDOM CATH CAME OFF. CATH REPLACED. GENERALIZED EDEMA NOTED. LEFT ARM DRESSING C/D/I. PT TAKES MEDS CRUSHED IN APPLESAUCE WITHOUT DIFFICULTY. PT DENIES PAIN OR DISCOMFORT. BED ALARM ON FOR SAFETY. PT APPEARS TO BE SLEEPING ON HOURLY ROUNDS. TURNED Q2H.
[2020-09-03 05:50] LABS: HEMATOCRIT 41.2 % (42.0-52.0); HEMOGLOBIN 13.2 gm/dL (14.0-18.0); MCH 25.7 pg (26.0-34.0); MCV 80.4 fL (80.0-100.0); RBC 5.12 mil/uL (4.50-6.00); RDW 16.9 % (10.5-14.5); WBC 3.3 thou/uL (4.0-11.0)
[2020-09-03 06:14] LABS: CALCIUM 8.5 mg/dL (8.5-10.1); CREATININE 1.3 mg/dL (0.7-1.3)
[2020-09-03 06:47] LABS: FOLIC ACID 19.3 ng/mL (8.6-58.9)
[2020-09-03 08:00] VITALS: BP 155/92
--- NOTE | 2020-09-03 11:38 | NUR ---
chart review. cm tried to visit with ashli. cm cont to wear face mask and shield during visit. mark was working with ot. noted he lives alone in home. left bka with prothesis. has walker. has stair to the basement. [facility] in past and will use again. currently requiring oxygen. no home o2, will check to see if he will need for dc, if so [facility] will provide home o2 after sat exercise. will cont following as needed for dc needs.
--- NOTE | 2020-09-03 12:10 | NUR ---
ASSUMED CARE OF PT AT 0700. PT IS A&OX3, VITAL SIGNS ARE STABLE. PT PARTICIPATED IN SCHEDULED THERAPIES. WOUND DRESSING CHANGES COMPLETED PER ORDERS. ACCU CHECKS ACHS. GENERALIZED EDEMA NOTED AND PT UNABLE TO APPLY LLE PROSTHETIC DUE TO EDEMA. MEDICATIONS CRUSHED IN PUREE. PT TURNED AND REPOSITIONED FREQUENTLY. FALL PRECAUTIONS IN PLACE AND NURSING WILL CONTINUE TO MONITOR.
--- NOTE | 2020-09-03 12:28 | NUR ---
Nutrition: pt admitted with acute/chronic heart failure exacerbation. COVID + last month with treatment at home but then admitted to CCU with CHF. Consulted to see pt regarding DM diet choices. On 2 gm Na, carb controlled diet, eating 50-100% of meals. C/O chewing/swallowing difficulty with meat so ST is monitoring pt eating lunch for possible diet changes. Pt reports UBW 212#. Current 243#, unsure of accuracy. Edema present but prior weights were 222-226#. On torsemide and vitamins. RD educated pt on ordering meals and modifications that would take place based on current diet. Offered to ayaka his menu for him however he stated not necessary, call center would alert if orders something not allowed. Basic questions answered. Low nutrition risk.
--- NOTE | 2020-09-03 16:15 | NUR ---
PT SPOKE WITH Pt'S SON SHANNON. Pt'S SON REPORTS THAT Pt HAS NOT BEEN ABLE TO DON PROSTHESIS FOR OVER ONE MONTH NOW. HAS BEEN USING W/C PRIMARILY TO GET AROUND. HOPS WITH FWW WHEN IN BATHROOM. SONS WERE ASSISTING WITH MOST MOBILITY.
[2020-09-03 19:16] VITALS: BP 147/88
--- NOTE | 2020-09-04 02:56 | NUR ---
PATIENT TURNED TO SIDE TO KEEP OFF RIGHT BUTTOCK. MOISTURE BARRIER TO BUMPY AREA ON RIGHT BUTTOCK APPRECIATED BY PATIENT. EXTERNAL CATHETER ON AND DRAINING TO DEPENDENT DRAINAGE BAG. LOOKING FOR JAMES STUMP COURT ASSISTANT, CANNOT FIND IN ROOM. O2 SAT GREATER THAN 92% ON 2L PNC, VARIETY OF COUGHING SOUNDS TONIGHT WHILE SLEEPING.
[2020-09-04 03:06] LABS: GLYCOHEMOGLOBIN (HGB A1C) 11.3 % (4.8-5.6)
[2020-09-04 08:00] VITALS: BP 153/87
--- NOTE | 2020-09-04 12:54 | NUR ---
ASSUMED CARE OF PT AT 0700. PT IS A&OX4 AND VITAL SIGNS ARE STABLE. PT REPORTS SOME PAIN TO ABDOMEN, BUT REFUSED PAIN MEDICATIONS AT THIS TIME. PT DENIES N/V. GENERALIZED EDEMA NOTED ON ASSESSMENT. NON-PRODUCTIVE COUGH THIS SHIFT. PT ON 1L O2 AT THIS TIME AND O2 SATS >90% WHEN AT REST. WOUNDS DRESSED PER ORDERS. PT REPORTS PAIN TO BUTTOCKS, NO OPEN AREA NOTED, BUT A SMALL BUMP IS PRESENT, PT TURNED AND BARRIER CREAM APPLIED. FALL PRECAUTIONS IN PLACE AND NURSING WILL CONTINUE TO MONITOR.
[2020-09-04 20:05] VITALS: BP 140/67
--- NOTE | 2020-09-05 02:37 | NUR ---
ASSUMED CARE APPROX 1900 EVENING 09/03. PT LYING IN BED WITH HEAD OF BED ELEVATED AT CHANGE OF SHIFT. PT SLEEPING AND SOMEWHAT LETHARGIC. 02 SUKHDEEP 2L PER N/C. CONTINUOUS PULSE OXIMETER ON WITH SATS 92% AND GREATER. PT TOOK HS MEDS WITH APPLESAUCE TOLERATING WELL. PT FITTED WITH EXTERNAL CATHETER. PT APPEARS TO BE SLEEPING SOUNDLY. BED ALARM ON AND CALL LIGHT IN REACH. WILL CONTINUE TO MONITOR.
[2020-09-05 06:07] LABS: HEMATOCRIT 39.1 % (42.0-52.0); HEMOGLOBIN 12.4 gm/dL (14.0-18.0); MCH 25.4 pg (26.0-34.0); MCHC 31.8 g/dL (28.0-37.0); MCV 79.9 fL (80.0-100.0); PLATELET COUNT 157 thou/uL (150-400); RBC 4.89 mil/uL (4.50-6.00); RDW 17.1 % (10.5-14.5); WBC 2.9 thou/uL (4.0-11.0)
[2020-09-05 06:25] LABS: CALCIUM 8.2 mg/dL (8.5-10.1); CREATININE 1.2 mg/dL (0.7-1.3); MAGNESIUM 1.5 mg/dL (1.8-2.4); POTASSIUM 3.5 mmol/L (3.5-5.1)
[2020-09-05 07:20] VITALS: BP 158/78
[2020-09-05 08:48] LABS: ABSOLUTE NEUTROPHILS 2.2 thou/uL (1.4-8.2); PLATELET ESTIMATE NORMAL
--- NOTE | 2020-09-05 09:21 | PLAN ---
[facility] [place] [address] REHAB UNIT PLAN OF CARE Name: MARY NIEVES Room #: 504-1 ADM IN M.R.#: [id number] Admission: 09/02/20 Attend Phys: Lawrence Chatterjee MD Discharge: Date of : 46 Report #: [id number] THIS REPORT FOR: cc: Sixto Sheldon,Lawrence Pompa MD ~ CC: Lawrence Sheldon DATE OF SERVICE: 09/03/2020 PROGRESS NOTE AND OVERALL PLAN OF CARE SUBJECTIVE: The patient is seen today. He was in no distress. He does have significant swelling of that left upper extremity and notes that the hospitalist has ordered for a venous Doppler study. The patient has the old left below-knee amputation, which appears to be healing well. He still has too much edema overall in order to be able to wear his prosthesis, however. PHYSICAL EXAMINATION: GENERAL: He is pleasant and alert. CHEST: Clear. CARDIAC: Sounded regular rate and rhythm. ABDOMEN: Bowel sounds positive, nontender. GENITOURINARY AND RECTAL: Deferred. MUSCULOSKELETAL: Functionally, he is max assist with sit to stand transfers. He has hopped a couple of feet mod assist with a front-wheeled walker. In occupational therapy, lower body dressing is dependent with upper body dressing supervision. He also has speech therapy involved and he had a swallow that appears functional mechanical soft, thin liquids. ASSESSMENT: 1. Medical complexity with generalized debilitation. 2. Acute exacerbation of congestive heart failure. 3. Recent hypoxic respiratory failure. 4. Wounds of the left forearm. He does have swelling of that left upper extremity with venous Doppler study, currently pending. 5. Past history of left below-knee amputation approximately 4 years ago per the patient's history. 6. Diabetes mellitus type 2. 7. Prior history of permanent pacemaker. PLAN: The overall plan of care is based on the preadmission screen and information garnered from therapy assessments. 1. Estimated length of stay is probably at least 10-14 days. 2. Medical prognosis is reasonably good. 3. Anticipated interventions includes the interdisciplinary acute inpatient [facility] [address] [place] [address] REHAB UNIT PLAN OF CARE Name: MARY NIEVES Tru Room #: 504-1 ADM IN [facility]#: [id number] Admission: 09/02/20 Attend Phys: Lawrence Chatterjee MD Discharge: Date of : 46 Report #: [id number] rehabilitation program. 4. Anticipated functional outcomes would be for the patient to improve as far as basic transfers, mobility, ADLs. Hopefully, we can get to the point where he can don his prosthesis again. 5. Discharge destination would be back to the home setting. He does live alone, but notes he has a couple of sons that are in the area, although they both work. 6. Expected therapy by discipline includes PT, OT and speech 1 hour per day each five days a week throughout the duration of the acute inpatient rehabilitation stay. We may be able to decrease the speech therapy; however, and appropriately increase PT and OT. ADDENDUM: The patient's prognosis for significant practical improvement within a reasonable period of time appears good. Given the patient's complex medical condition and risk of further medical complications, rehabilitation services could not be safely provided at a lower level of care such as a usp facility. <ELECTRONICALLY SIGNED> By: Lawrence Chatterjee MD 09/05/20 0921 [id number] Lawrence Chatterjee MD /nt
--- NOTE | 2020-09-05 12:09 | NUR ---
ASSUMED CARE AT 0700. PT IS ALERT AND ORIENTATED. PAIN IS CONTROLLED AND MANAGEABLE WITH TYELNOL. SAT AT 93% ON ROOM AIR. L BKA WITH COVER, UNABLE TO PUT THE PROSTHESIS ON DUE TO EDEMA. WOUND CARE DONE TO HIS L UA AND R LE. WOUND IS HEALING WITH NO SIGNS OF INFLAMMATION. PT IS UP WITH MODERATE ASSIST WITH THERAPY. APPETITE GOOD. TOLERATE MEDS WHOLE WITH APPLE SAUCE. WEIGHT CHECKED USING STANDING SCALE AT 213.1 LB. ACCU CHECKS DONE AND MEDICATED WITH INSULIN WITH LOW DOSE. CONT TO MONITOR.
--- NOTE | 2020-09-05 13:29 | HC ---
[facility] [place] [address] CONSULTATION Name: MARY NIEVES Room #: 504-1 ADM IN M.R.#: [id number] Admission: 09/02/20 Attend Phys: Lawrence Chatterjee MD Discharge: Date of : 46 Report #: [id number] THIS REPORT FOR: cc: Sixto Sheldon Matthew DO Al-Mubaslat, Ahmad MD ~ DATE OF SERVICE: 09/04/2020 ENDOCRINE CONSULTATION NOTE CONSULTING PHYSICIAN: Dr. Chatterjee. REASON FOR CONSULTATION: Uncontrolled type 2 diabetes mellitus. HISTORY OF PRESENT ILLNESS: This is a 70-year-old male patient who was recently admitted to [facility] due to shortness of breath in the context of congestive heart failure. Also, he was previously diagnosed with COVID-19 in 08/2020 that was primarily treated at home. The patient was managed in the CCU prior to his transition to the rehab unit and was diuresed aggressively there. He has a history of type 2 diabetes mellitus, dating back to several years ago, and his most recent regimen at home had consisted of Lantus insulin 15-20 units q.p.m. in addition to Humulin R insulin 3-4 units before meals. He notes that he has historically maintained adequate control with this regimen without the issues of hypoglycemia. However, as he started dealing with his recent medical difficulties including his COVID-19 infection, he noted that his blood glucose control has worsened, whereby he had noted blood glucose values as high as 300s. He is not aware of issues pertaining to diabetic nephropathy, retinopathy or CAD, but he does experience difficulties with peripheral diabetic neuropathy affecting both his hands and feet. REVIEW OF SYSTEMS: CONSTITUTIONAL: Fatigue, tiredness, but not fever or chills. HEENT: Negative for sore throat, sinus pain or ear drainage. PULMONARY: Shortness of breath and cough. No hemoptysis. CARDIAC: Dyspnea on exertion, generalized edema, occasional palpitations, no chest pain. GASTROINTESTINAL: Negative for abdominal pain, nausea, vomiting or changes in bowel movement frequency. NEUROLOGY: Noted for baseline peripheral diabetic neuropathy affecting both hands and feet, but not loss of consciousness or seizure activity. Otherwise, review of systems noncontributory other than those mentioned in HPI. [address] [address] CONSULTATION Name: LIZBETHMARY Room #: 504-1 ADM IN .R.#: [id number] Admission: 09/02/20 Attend Phys: Lawrence Chatterjee MD Discharge: Date of : 46 Report #: [id number] [id number] MEDICAL HISTORY: 1. Type 2 diabetes mellitus. 2. Congestive heart failure. 3. Cardiomyopathy. 4. Recent history of COVID-19. 5. CAD, history of non-STEMI. 6. History of osteomyelitis. 7. Renal insufficiency. 8. Hypertension. 9. Peripheral vascular disease, status post left below-knee amputation. 10. Hyperlipidemia. 11. History of prostate cancer, status post radiation therapy. 12. History of diverticulitis. 13. History of anemia. 14. Pancreatitis. OUTPATIENT MEDICATIONS: 1. Lantus insulin 15-20 units q.p.m. 2. Humulin R insulin 3-4 units with meals. 3. Carvedilol 25 mg b.i.d. 4. Plavix 75 mg daily. 5. Imdur 30 mg daily. 6. Furosemide 40 mg b.i.d. ALLERGIES: CODEINE. FAMILY HISTORY: Noncontributory. SOCIAL HISTORY: Denies use of tobacco, alcohol or illicit drugs. PHYSICAL EXAMINATION: GENERAL: Pleasant male patient who is not in apparent pain or distress. VITAL SIGNS: Blood pressure is 153/87 mmHg, heart rate is 62 beats per minute, respirations 22 per minute, temperature 36.7 degrees Celsius. CONSTITUTIONAL: He is sitting upright in his wheelchair, appears generally comfortable, not in apparent pain or distress. HEENT: Anicteric sclerae. Intact extraocular motions. NECK: Supple, without thyromegaly or lymphadenopathy. CHEST: Noted for diminished air entry bilaterally with scattered rales. No wheeze or crackles. HEART: Regular rate and rhythm with a systolic ejection murmur. ABDOMEN: Soft, lax, without guarding. Active bowel sounds. EXTREMITIES: Lower extremity exam noted for left BKA and a right trace ankle [address] [address] CONSULTATION Name: MARY NIEVES Room #: 504-1 ADM IN M.R.#: [id number] Admission: 09/02/20 Attend Phys: Lawrence Chatterjee MD Discharge: Date of : 46 Report #: [id number] edema. NEUROLOGIC: Awake, alert and oriented to time, place and person with sensory deficits over both hands and feet. Otherwise, he had a largely nonfocal exam. PSYCHIATRIC: Pleasant, interactive. Normal mood and affect. Normal thought process. LABORATORY RESULTS: Blood glucose values were reviewed over the past week and have fluctuated widely. From 09/01/2020 through 09/03/2020, the patient maintained blood glucose control rather consistently in the 120-180 mg/dL range for the most part. However, he has had hyperglycemia above 200 mg/dL over the past 24 hours. Sodium 142, potassium 4.0, chloride 104, CO2 of 28, anion gap 10, BUN 30, creatinine 1.3, was as high as 1.9 during this hospital stay. AST 44, total bilirubin 0.7, direct bilirubin 0.3, calcium 8.5, phosphorus 3.6, magnesium 2.0, alkaline phosphatase 165, ALT 39, albumin 2.8, EGFR 66. Lactic acid 1.4. Total CPK 394. Total cholesterol 144, triglycerides 32, HDL 47, LDL 91. BNP 15,938. INR 1.2. White blood count 3.3, hemoglobin 13.2, hematocrit 41.2, platelets 114. TSH 3.108. Hemoglobin A1c 11.3%. ASSESSMENT AND PLAN: 1. Type 2 diabetes mellitus. Uncontrolled baseline as per his recorded hemoglobin A1c of 11.3%. The patient was counseled at length about the importance of achieving and maintaining adequate glycemic control so as to avoid diabetic complications. He is currently maintained on a combination of Lantus insulin 10 units daily as well as a Humalog supplemental scale. I will raise his Lantus insulin dosage to 14 units daily and add linagliptin 5 mg daily for added post-prandial control. Blood glucose monitoring will continue a.c. and at bedtime and further therapeutic adjustments will be conducted accordingly. 2. Hypertension. The patient's level of blood pressure control has been marginal. I will defer to the primary hospital team as to the adjustment of his current antihypertensive regimen. I certainly appreciate this consultation by Dr. Chatterjee. <ELECTRONICALLY SIGNED> By: Naren Diaz MD 09/05/20 1329 [id number] [id number] Naren Diaz MD /nt
[2020-09-05 20:00] VITALS: BP 137/73
--- NOTE | 2020-09-06 02:40 | NUR ---
assumed care approx 1900 evening 09/05. pt lying in bed with head of bed elevated at change of shift. pt fitted with external catheter. pt took hs meds with applesauce tolerating well. pt refused cpap set up from RT. 02 at 2l per n/c. continuous pulse oximeter in place with sats 92% and greater. bed alarm on and call light in reach. will continue to monitor.
[2020-09-06 07:31] VITALS: BP 136/68
--- NOTE | 2020-09-06 14:09 | NUR ---
ASSUMED CARE AT 0700. PT SLEPT WELL LAST NIGHT WITH NO COMPLAINS. THIS MORNING HE COMPLAINED OF L LOWER BACK PAIN. TREATED WITH TYELENOL WITH COMPLETE RELIEF. PT HAD A BOWEL INCONTINENCE AND OT GOT HIM UP FOR SHOWER. WOUND DRESSING DONE TO LEFT FA AND RLE. WOUND HEALING WITH NO SIGNS OF INFLAMMATION. PT IS ABLE TO GET UP WITH 1X PERSON ASSIST FROM BED TO WC. APPETITE GOOD, BS CHECKED AND TREATED WITH INSULIN. PARTICIPATING WITH THERAPY. CONT TO MONITOR.
[2020-09-06 20:40] VITALS: BP 150/79
--- NOTE | 2020-09-07 01:39 | NUR ---
ASSUMED PT CARE TA 1899.PT WAS OBSERVED TO BE ON HIS BED WITH HIS EYES CLOSED AT SHIFT CHANGE.PT C/O PAIN ON HIS BACK DURING CARE,BUT HE REF TO TAKE PAIN MED WHEN IT WAS OFFERED TO HIM.PT STATED"I AM FINE FOR NOW". CALL RT TO PUT CPAP ON PT,STAFF STATED THAT THE PT REF TO USE HIS CPAP/WEAR HIS OXYGEN AT HS.PT LATER COMFIRMED THAT THIS TRUE,PT'S SAT AT 93%.CONDOM CATH IN PLACE PER PT'S REQUEST.DRSG ON WOUND TO HIS L ARM AND RLE INTACT.ZGUARD TO HIS BUTTOCK.LOW AIR LOSS MATTRESS IN PLACE.CALL LIGHT WITHIN REACH.
[2020-09-07 08:24] VITALS: BP 188/84
[2020-09-07 12:02] VITALS: BP 146/72
[2020-09-07 15:08] LABS: ABSOLUTE NEUTROPHILS 2.5 thou/uL (1.4-8.2); BASOPHILS 0.9 % (0.0-2.0); EOSINOPHILS 4.1 % (0.0-3.0); HEMATOCRIT 39.8 % (42.0-52.0); HEMOGLOBIN 12.8 gm/dL (14.0-18.0); LYMPHOCYTES 11.9 % (24.0-44.0); MCH 25.4 pg (26.0-34.0); MCHC 32.2 g/dL (28.0-37.0); MCV 78.9 fL (80.0-100.0); MONOCYTES 7.4 % (1.0-8.0); POLYS 75.7 % (36.0-66.0); RBC 5.04 mil/uL (4.50-6.00); RDW 16.9 % (10.5-14.5); WBC 3.3 thou/uL (4.0-11.0)
[2020-09-07 15:09] LABS: PLATELET COUNT 283 thou/uL (150-400)
[2020-09-07 15:24] LABS: CALCIUM 8.7 mg/dL (8.5-10.1); CREATININE 1.3 mg/dL (0.7-1.3); MAGNESIUM 1.6 mg/dL (1.8-2.4); POTASSIUM 3.4 mmol/L (3.5-5.1); TOTAL BILIRUBIN 0.6 mg/dL (0.2-1.0); TOTAL PROTEIN 6.8 g/dL (6.4-8.2)
[2020-09-07 19:13] VITALS: BP 148/68
--- NOTE | 2020-09-07 19:27 | NUR ---
ASSUMED CARE OF PT AT 0715. PT IS A&OX4 IS FORGETFUL. REPORTS PAIN ON LEFT LATERAL ABD THAT IS BEING MANAGED WITH THERAPUETIC TECHINIQUES. PT REFUSED PAIN MEDS. IS ON ROOM AIR, BUT IS TO WEAR CPAP OR 02 AT HS. NOC NURSE REPORTED PT REFUSED TO USE EITHER LAST NOC. IS TURNED Q2H. IS UP WITH 1-2 ASSIST, GB, WALKER, STAND PIVOT TO CHAIR. FALL PREAUTIONS & HOURLY ROUNDING CONTINUED THIS SHIFT. PT HAS PROSTATIC LIMB IN ROOM FOR LBKA. LABS & VITALS REVIEWED. DRSG CHANGED THIS SHIFT BY THIS NURSE. PT IS INCONTINENT OF B&B. CALLS APPROPRIATELY, BUT IS UNABLE TO HOLD IT. PT IS CURRENTLY RESTING IN BED, WATCHING TV. CALL LIGHT WITHIN REACH. WILL CONTINUE TO MONITOR.
--- NOTE | 2020-09-07 22:43 | NUR ---
CONTINUED CARE OF PT AT 1915. PT IS A&OX3. IS FORGETFUL. IS ON ROOM AIR. IS STABLE. DRSG TO LEFT ARM C/D/I. SLEEVE ON LBKA. ELEVATED. PROSTATIC IN ROOM. IS UP WITH 1-2 ASSIST, GB, PIVOT TO W/C. FALL PRECAUTIONS IN PLACE. BARRIER CREAM TO BOTTOM. CONDOM CATH IN PLACE. PT IS CURRENTLY TALKING ON THE PHONE. CALL LIGHT WITHIN REACH. WILL CONTINUE TO MONITOR.
[2020-09-08 05:49] LABS: ABSOLUTE NEUTROPHILS 2.3 thou/uL (1.4-8.2); BASOPHILS 0.9 % (0.0-2.0); EOSINOPHILS 5.3 % (0.0-3.0); HEMOGLOBIN 12.2 gm/dL (14.0-18.0); LYMPHOCYTES 14.4 % (24.0-44.0); MCH 25.9 pg (26.0-34.0); MCHC 32.9 g/dL (28.0-37.0); MCV 78.8 fL (80.0-100.0); MONOCYTES 7.6 % (1.0-8.0); PLATELET COUNT 294 thou/uL (150-400); POLYS 71.8 % (36.0-66.0); RBC 4.69 mil/uL (4.50-6.00); WBC 3.2 thou/uL (4.0-11.0)
--- NOTE | 2020-09-08 05:50 | NUR ---
PT ALERT AND ORIENTED X 4. DENIES PAIN OR DISCOMFORT. PT STATES HE SLEPT WELL TONIGHT. BED ALARM ON FOR SAFETY.
[2020-09-08 06:11] LABS: CALCIUM 8.6 mg/dL (8.5-10.1); CREATININE 1.1 mg/dL (0.7-1.3)
[2020-09-08 08:42] VITALS: BP 141/67
--- NOTE | 2020-09-08 13:46 | NUR ---
ASSUMED CARE AT 0700. PT IS ALERT AND ORIENTATED, FORGETFUL AT TIMES. SLEPT WELL. DENIES ANY PAIN FOR NOW. APPETITE IS FAIR, ATE 50% OF MEALS. BLOOD SUGAR CHECKED AND TREATED WITH INSULIN SCHEDULED. PARTICIPATED IN THERAPIES AND WAS ABLE TO USE HIS PROSTHESIS TO WALK. WOUND CARE SAW PT AND CHANGES MADE TO WOUND CARE. PT VOIDS PER URINAL, NO BM TODAY YET. NO CONCERNS, WILL CONT TO MONITOR.
[2020-09-08 19:23] VITALS: BP 138/67
--- NOTE | 2020-09-09 02:04 | NUR ---
TIRED AND READY FOR BED AT 1999, AWAKE FOR A WHILE AT MIDNIGHT AND NOT ORIENTED TO TIME. REQUESTED BLOOD SUGAR AT MIDNIGHT DUE TO HIS CONFUSION, BLOOD SUGAR 142. TURNED TO RIGHT SIDE, LIBERTY EXTERNAL CATH REPLACED. LOW AIR LOSS THERAPY CONTINUES, Z-GUARD TO SACRUM
--- NOTE | 2020-09-09 03:30 | NUR ---
EXTERNAL CATHETER OFF FOR THE SECOND TIME TONIGHT, THIS TIME PATIENT SAYS HE'S TRYING TO GET UP. WILL LEAVE OFF AND DO BED CHECKS HOURLY FOR WETNESS UNTIL END OF SHIFT.
[2020-09-09 08:10] VITALS: BP 156/74
--- NOTE | 2020-09-09 12:55 | NUR ---
team meeting, reccomendation: 175ft with meena nicole soft chopped meat, thin liquid, will need assist with pills and bills. son in area but dont not stay with him. dc initial 24hr supervison on , assist with bills and pills. hh ( pt, ot, st , nursing and sw). will use his home cpap at . he not needing any oxygen. possible need btx at home. training with son with therapy.
--- NOTE | 2020-09-09 17:47 | NUR ---
ASSUMED CARES AT 0700. PT ORIENTED TO PERSON, SITUATION, FORGETFUL. VITALS REMAIN STABLE. PT DENIES PAIN. PT INCONTINENT OF BLADDER *1, VOIDING PER URINAL THE REST OF THE TIME. WOUNDCARE TO SACRAL AREA COMPLETED. PROSTHESIS ON LLE, PT UP WITH 1 MIN ASSIST GB AND WALKER AND TOLERATED WELL. Q1H VISUAL CHECKS. CALL LIGHT WITHIN REACH. FALL PRECAUTIONS IN PLACE
[2020-09-09 19:32] VITALS: BP 142/64
--- NOTE | 2020-09-10 04:52 | NUR ---
WITH PROSTHESIS ON HE WAS UP TO TOILET WITH 1P ASSIST, GAIT BELT, AND WALKER LAST EVENING, SINCE THEN HE IS USING EXTERNAL CATHETER PER HIS REQUEST WHILE SLEEPING WITH CPAP O2 SAT GREATER THAN 90 WITH CPAP ON AND WHEN AWAKE. TOLERATING PILLS WHOLE IN APPLESAUCE. PUT STUMP STIFF STRAW HAT WASHER ON HIMSELF. TURNED EVERY 2 HOURS SINCE BACK IN BED
[2020-09-10 07:00] VITALS: BP 155/82
--- NOTE | 2020-09-10 12:26 | NUR ---
ASSUMED CARE AT 0700. PT IS ALERT AND ORIENTATED AND SOMETIMES FORGETFUL. PLEASANT AND COOPERATIVE. DENIES ANY PAIN. SLEPT FAIRLY WELL. APPETITE FAIRLY GOOD, ACCUCHECK DONE AND TREATED WITH INSULIN. NO BM TODAY. VOIDING PER URINAL. DRESSING DONE TO L FA AND R LE. UP WITH ASSIST TO BATHROOM WITH USING HIS PROSTHESIS. PROGRESSING TOWARDS GOAL. PLAN FOR DISCHARGE HOME ON 09/16. SON TO COME FOR FAMILY TRAINING PRIOR DC. CONT TO MONITOR.
--- NOTE | 2020-09-10 12:28 | NUR ---
Nutrition followup: Pt continues on rehab unit requiring mechanical chopped diet with ST following for upgrade trials. Eating 100% of recent meals. Current weight right around usual. Labs/meds reviewed. Hypokalemia-replacing. BG 142-195. A1C 11.3, uncontrolled DM. Basics of diet have been reviewed, will continue to follow for appropriateness of further education. Low risk.
[2020-09-10 19:33] VITALS: BP 151/66
--- NOTE | 2020-09-11 03:02 | NUR ---
ASSUMED CARE OF PT AT 1900. PT IS A/O X4 WITH SOME FORGETFULLNESS AT TIMES. PT WAS GIVEN 3 UNITS OF INSULIN AT HS. DENIES ANY C/O OF PAIN OR DISCOMFORT. VSS. Z GUARD APPLIED TO BUTTOCKS. DRSGS TO ARM IS C/D/I. REMOVED LIDOCAINE PATCH PER DEC. MEDICATIONS GIVEN WHOLE WITH WATER PRESCRIBED. AT THIS TIME, PT IS LYING IN HIS BED AND APPEARS TO BE SLEEPING. EXTERNAL MALE CATHETER IN PLACE AND DRAINING YELLOW URINE. FALL PRECAUTIONS ARE IN PLACE, CALL LIGHT IS WITHIN REACH. WILL CONTINUE TO MONITOR.
[2020-09-11 08:00] VITALS: BP 146/76
--- NOTE | 2020-09-11 13:02 | NUR ---
ASSUMED CARES AT 0700. PT AWAKE, ALERT AND ORIENTED*3 BUT FORGETFUL. DENIES PAIN. VITALS REMAIN STABLE. WOUNDS TO SACRAL AREA CLEANED AND Z-GUARD APPLIED. PROSTHESIS PLACED THIS AM, PT AMBULATING AND TRANSFERING WITH MIN ASSIST, GB AND WALKER. Q1H VISUAL CHECKS. CALL LIGHT WITHIN REACH. FALL PRECAUTIONS IN PLACE
[2020-09-11 19:01] VITALS: BP 141/70
--- NOTE | 2020-09-11 23:06 | NUR ---
ASSUMED CARE OF PT AT 1915. PT IS A&XO3. IS ON ROOM AIR. DENIES PAIN. IS STABLE. IS ON 2L OF 02 AT HS. REFUSED TO USE CPAP WITH RT. DENIES PAIN IN LEFT LATERAL SIDE OF ABD & LBKA. REFUSED TO WEAR STUMP CIRCULATION ASSISTANT TONIGHT. IS UP WITH 1 ASSIST, GB, WALKER WITH PROSTHETIC LIMB. FALL PRECAUTIONS & HOURLY ROUNDING CONTINUED THIS SHIFT. LABS & VITALS REVIEWED. WILL CONTINUE TO MONITOR. PT IS TURNED Q2H. LIMB ELEVATED. WILL CONTINUE TO MONITOR.
[2020-09-12 08:00] VITALS: BP 144/77
--- NOTE | 2020-09-12 13:59 | NUR ---
ASSUMED CARES AT 0700. PT AWAKE, ORIENTED TO PERSON, PLACE AND SITUATION. DENIES PAIN. VITALS REMAIN STABLE. WOUNDCARE COMPLETED TO SACRAL AREA AND RLE PER ORDER. PROSTHESIS ON LLE WITH TRANSFERS AND AMBULATION. PT INCONTINENT*1 OF BLADDER. UP WITH 1 MIN ASSIST, GB AND WALKER AND TOLERATED WELL. Q1H VISUAL CHECKS. CALL LIGHT WITHIN REACH. FALL PRECAUTIONS IN PLACE
--- NOTE | 2020-09-12 16:34 | NUR ---
FAXED REFERRAL FOR WHEELCHAIR TO [facility] RECEIVED CONFIRMATION AND LEFT MSG WITH TREVOR FROM [facility]. DP TO FOLLOW.
[2020-09-12 20:00] VITALS: BP 136/75
--- NOTE | 2020-09-13 03:51 | NUR ---
UP FROM CHAIR TO BED AND TOILET FOR VOID WITH 1P ASSIST AND GAIT BELT. INCONTINENT OF URINE TWICE TONIGHT. STUMP ARCH CUSHION PRESS OPERATOR ON FOR 3 HOURS. REFUSED CPAP AND IS USING O2 2L PNC INSTEAD, USES CPAP AT HOME AND SAYS HE LIKES HIS OWN MACHINE BETTER.
[2020-09-13 07:15] VITALS: BP 148/73
--- NOTE | 2020-09-13 11:12 | NUR ---
ASSUMED CARE AT 0700. PT IS ALERT AND ORIENTATED. DENIES ANY PAIN. HAD INCONTINENCE OF URINE AT NIGHT. LT ARM WOUND IS HEALING WELL AND IS KEPT ENROLLMENT PROCESSOR. RLE WOUND DRESSING DONE PER STACK MATCHER AND TURBIGRIPS ON. APPETITE GOOD, TOLERATED HIS MEDS WITH APPLE SAUCE WITHOUT ANY DIFFICULTY. PROGRESSING WITH THERAPY. PLAN FOR DISCHARGE HOME NEXT TUESDAY. CONT TO MONITOR.
[2020-09-13 20:00] VITALS: BP 151/81
--- NOTE | 2020-09-14 03:00 | NUR ---
PT SITTING UP IN RECLINER AT CHANGE OF SHIFT ALERT AND ORIENED X4. PT PLEASANT AND COOPERATIVE TONIGHT. APPEARS TO BE SLEEPING SOUNDLY IN BED. INCONTINENT OF URINE, ENCOURAGED TO USE URINAL HOWEVER PT SLEEPY AND INCONTINENT. BED ALARM ON AND CALL LIGHT IN REACH. WILL CONTINUE TO MONITOR.
[2020-09-14 07:15] VITALS: BP 138/64
--- NOTE | 2020-09-14 10:42 | NUR ---
ASSUMED CARE AT 0700. PT SLEPT WELL. DENIES ANY PAIN. PT UNABLE TO CONTROL BLADDER OR HAVE ANY SENSATION TO VOID. PT USES PROSTHESIS AND ABLE TO WALK WITH WALKER. APPETITE FAIR, TOLERATES PO INTAKE AND TOOK MEDS WITH APPLE SAUCE. NO BM THIS MORNING. WOUND CARE DONE TO RLE AND WOUND TO LUE IS ACID PATROLLER. PLAN FOR DISCHARGE HOME ON TUESDAY.
[2020-09-14 20:00] VITALS: BP 142/62
--- NOTE | 2020-09-15 00:54 | NUR ---
ASSUMED CARE APPROX 1900 EVENING 09/14. PT SITTING UP IN RECLINER AT CHANGE OF SHIFT TALKING ON PHONE AND WATCHING TV. PT ALERT AND ORIENTED X4, APPROPRIATE AND COOPERATIVE. PT INCONTINENT OF URINE TONIGHT ASSISTED WITH PAD CHANGE. PT TOOK MEDS WITH APPLESAUCE TOLERATING WELL. PT APPEARS TO BE SLEEPING SOUNDLY. BED ALARM ON AND CALL LIGHT IN REACH. WILL CONTINUE TO MONITOR.
[2020-09-15 05:31] LABS: HEMATOCRIT 36.3 % (42.0-52.0); HEMOGLOBIN 11.6 gm/dL (14.0-18.0); MCH 25.6 pg (26.0-34.0); MCHC 32.1 g/dL (28.0-37.0); MCV 79.7 fL (80.0-100.0); PLATELET COUNT 403 thou/uL (150-400); RBC 4.55 mil/uL (4.50-6.00); RDW 17.2 % (10.5-14.5); WBC 4.8 thou/uL (4.0-11.0)
[2020-09-15 06:01] LABS: CALCIUM 9.1 mg/dL (8.5-10.1); CREATININE 1.2 mg/dL (0.7-1.3); MAGNESIUM 1.9 mg/dL (1.8-2.4)
[2020-09-15 09:18] LABS: ABSOLUTE NEUTROPHILS 3.1 thou/uL (1.4-8.2); PLATELET ESTIMATE NORMAL
--- NOTE | 2020-09-15 11:06 | NUR ---
ASSUMED CARE AT 0700. HAD AN UNEVENTFUL NIGHT, SLEPT WELL. DENIES ANY PAIN. APPETITE FAIRLY GOOD. HAD A BM TODAY. PROGRESSING AND PARTICIPATING TOWARDS GOAL WITH THERAPY. UP WITH MIN ASSIST USING HIS PROSTHESIS. WOUND CARE TO RLE AND BUTTOCKS DONE. MANISH HEAD GAUGE UNIT OPERATOR NOTIFIED ABOUT PT INABILITY HAVING SENSATION TO VOID, WILL DEFER TO PRIMARY CARE UPON DISCHARGE. PLAN FOR DC HOME TOMORROW. NO OTHER CONCERNS. CONT TO MONITOR.
[2020-09-15 14:40] LABS: URINE BILIRUBIN NEGATIVE (Negative); URINE BLOOD NEGATIVE (Negative); URINE CLARITY CLEAR; URINE COLOR YELLOW; URINE GLUCOSE-RANDOM* NEGATIVE (Negative); URINE KETONES NEGATIVE (Negative); URINE LEUKOCYTES-REFLEX NEGATIVE (Negative); URINE NITRITE-REFLEX NEGATIVE (Negative); URINE PROTEIN (DIPSTICK) TRACE (Negative); URINE UROBILINOGEN 0.2 E.U./dl (0.2-1.0)
[2020-09-15 19:49] VITALS: BP 134/63
--- NOTE | 2020-09-16 00:45 | NUR ---
PT ALERT AND ORIENTED X 4. AMB TO BR WITH WALKER AND ASSIST X 1. 02 ON AT 2L PER NC DURING THE NIGHT. INCONT OF URINE. PT TOOK HS MEDS IN APPLESAUCE WITHOUT DIFFICULTY. PT DENIES PAIN OR DISCOMFORT. BED ALARM ON FOR SAFETY. PT APPEARS TO BE SLEEPING ON HOURLY ROUNDS.
[2020-09-16 07:15] VITALS: BP 139/67
[2020-09-16] MEDS ORDERED: ACEROLA C500 MG PO (08:13)
[2020-09-16] MEDS ORDERED: POTASSIUM20 PO (08:13)
[2020-09-16] MEDS ORDERED: CARVEDILOL12.5 MG PO (08:13)
[2020-09-16] MEDS ORDERED: ZINC SULFATE 2220 MG PO (08:13)
[2020-09-16] MEDS ORDERED: DEMADEX20 MG PO (08:13)
[2020-09-16] MEDS ORDERED: LISINOPRIL20 MG PO (08:13)
[2020-09-16] MEDS ORDERED: VITAMIN D325 MC1 PO (08:13)
[2020-09-16] MEDS ORDERED: VITAMIN B-1100 M2 PO (08:13)
[2020-09-16 09:09] VITALS: BP 139/67
[2020-09-16 10:16] VITALS: BP 139/67
--- NOTE | 2020-09-16 14:00 | NUR ---
PATIENT ALERT AND ORIENTED, PLEASANT, DEMONSTRATED INDEPENDENCE IN SELF CARE WITH TOILETING THIS AM, BUT NEEDED ASSIST WITH PANTS OVER THE PROSTHETIC. PT DID OWN Z-GUARD TO WOUND AT BOTTOM, AND VERBALIZED ABILITY TO MANAGE THIS HIMSELF. PT WAS INCONT OF BLADDER X 1 TODAY, AND MANAGED THIS HIMSELF. PATIENT'S SON ARRIVED FOR TRAINING, AND MANISH FUENTES REVIEWED MEDICATIONS AND RN GAVE INFORMATION REGARDING FOLLOW UP AND CHF CARE AT HOME, WELL DIET RESTRICTIONS. PATIENT AND SON VERBALIZED UNDERSTANDING, AND PATIENT WHEELED HIMSELF 150 WITH 2 TURNS TO THE ELEVATOR, AND REQUIRED MOD ASSIST WITH CAR TRANSFER DUE TO HEIGHT OF VEHICLE. ALL OF PATIENT'S BELONGINGS WERE WITH HIM AT THE TIME OF DC.
--- NOTE | 2020-09-17 11:32 | NUR ---
DISCHARGE SUMMARY HAS BEEN FAXED TO DR. TIWARI
== END 2020-09-16 14:30 | disposition home health service (06) | DRG 947 ==
PROVIDERS: Internal Medicine; Nurse Practitioner; Nurse Practitioner Family; ADMIT Physical Medicine & Rehabilitation; ATTEND Physical Medicine & Rehabilitation
PROC: 5A09357 Assistance with Respiratory Ventilation, Less than 24 Consecutive Hours, Continuous Positive Airway Pressure (ICD-10-PCS; principal; 2020-09-03)
PROC: 5A09357 Assistance with Respiratory Ventilation, Less than 24 Consecutive Hours, Continuous Positive Airway Pressure (ICD-10-PCS; 2020-09-09)
DX: R53.81 Other malaise (principal); J96.01 Acute respiratory failure with hypoxia; I42.9 Cardiomyopathy, unspecified; I13.0 Hypertensive heart and chronic kidney disease with heart failure and stage 1 through stage 4 chronic kidney disease, or unspecified chronic kidney disease; N17.9 Acute kidney failure, unspecified; I36.1 Nonrheumatic tricuspid (valve) insufficiency; I50.9 Heart failure, unspecified; I25.10 Atherosclerotic heart disease of native coronary artery without angina pectoris; E78.5 Hyperlipidemia, unspecified; E11.42 Type 2 diabetes mellitus with diabetic polyneuropathy; E11.51 Type 2 diabetes mellitus with diabetic peripheral angiopathy without gangrene; D69.6 Thrombocytopenia, unspecified; E87.6 Hypokalemia; K72.90 Hepatic failure, unspecified without coma; F01.50 Vascular dementia, unspecified severity, without behavioral disturbance, psychotic disturbance, mood disturbance, and anxiety; L30.8 Other specified dermatitis; S51.802A Unspecified open wound of left forearm, initial encounter; X58.XXXA Exposure to other specified factors, initial encounter; E11.22 Type 2 diabetes mellitus with diabetic chronic kidney disease; N18.9 Chronic kidney disease, unspecified; Z87.891 Personal history of nicotine dependence; Z95.5 Presence of coronary angioplasty implant and graft; Z89.412 Acquired absence of left great toe; Z89.422 Acquired absence of other left toe(s); Z89.512 Acquired absence of left leg below knee; Z79.899 Other long term (current) drug therapy; Z88.6 Allergy status to analgesic agent; Z85.46 Personal history of malignant neoplasm of prostate; Z92.3 Personal history of irradiation; Z79.4 Long term (current) use of insulin; Y93.89 Activity, other specified; Y92.89 Other specified places as the place of occurrence of the external cause; Y99.8 Other external cause status; Z79.82 Long term (current) use of aspirin
CPT/HCPCS: 10112

== ENCOUNTER → 2020-09-29 | Outpatient (CLI) | payer OTHER ==
[~2020-09-29] MED LIST changes: +AMMONIUM LACTA226 GM TOP; +CARVEDILOL12.5 MG PO; +DEMADEX20 MG PO; +GENTAMICIN SULF15 GM TOP; +LANTUS SUBQ; +LISINOPRIL10 MG PO; +LISINOPRIL20 MG PO
== END ==
LOC: SJCVC 13:47
PROVIDERS: ATTEND Internal Medicine
DX: R94.31 Abnormal electrocardiogram [ECG] [EKG] (principal); I45.10 Unspecified right bundle-branch block; I25.5 Ischemic cardiomyopathy; I50.20 Unspecified systolic (congestive) heart failure; R06.00 Dyspnea, unspecified; E11.9 Type 2 diabetes mellitus without complications; I25.2 Old myocardial infarction; F32.0 Major depressive disorder, single episode, mild; Z79.82 Long term (current) use of aspirin; Z79.4 Long term (current) use of insulin; Z79.899 Other long term (current) drug therapy; Z87.891 Personal history of nicotine dependence

== ENCOUNTER → 2021-06-22 | Outpatient (CLI) | payer OTHER | LOC: HYPER 08:14 | PROVIDERS: ATTEND Emergency Medicine Emergency Medical Services | DX: T87.89 Other complications of amputation stump (principal); L89.892 Pressure ulcer of other site, stage 2; L84 Corns and callosities; E11.40 Type 2 diabetes mellitus with diabetic neuropathy, unspecified; E11.51 Type 2 diabetes mellitus with diabetic peripheral angiopathy without gangrene; I87.2 Venous insufficiency (chronic) (peripheral); I25.10 Atherosclerotic heart disease of native coronary artery without angina pectoris; I25.5 Ischemic cardiomyopathy; I11.0 Hypertensive heart disease with heart failure; I50.22 Chronic systolic (congestive) heart failure; G47.33 Obstructive sleep apnea (adult) (pediatric); K21.9 Gastro-esophageal reflux disease without esophagitis; Z79.4 Long term (current) use of insulin; Z95.0 Presence of cardiac pacemaker; Z95.828 Presence of other vascular implants and grafts; Z85.46 Personal history of malignant neoplasm of prostate; Z79.82 Long term (current) use of aspirin; Y83.5 Amputation of limb(s) as the cause of abnormal reaction of the patient, or of later complication, without mention of misadventure at the time of the procedure ==

== ENCOUNTER 2021-09-06 13:15 | Emergency (ER) | payer OTHER ==
[~2021-09-06] VITALS: Ht 182.9 cm; Wt 120.2 kg
[2021-09-06] MEDS ORDERED: LEVOFLOXACIN750 MG PO ×2 (14:46→15:15)
[2021-09-06 15:10] VITALS: BP 134/71
[2021-09-06] MEDS ORDERED: PRINIVIL40 MG PO (19:42)
[2021-09-06] MEDS ORDERED: PREDNISONE 10 M10 MG PO (19:43)
[2021-09-06] MEDS ORDERED: ELIQUIS2.5 MG PO (19:43)
[2021-09-06] MEDS ORDERED: BASAGLAR K100 UNIT/1 SUBQ (19:44)
== END 2021-09-06 15:10 | disposition home or self-care (01) ==
LOC: ER 13:15
DX: L08.89 Other specified local infections of the skin and subcutaneous tissue (principal); I13.0 Hypertensive heart and chronic kidney disease with heart failure and stage 1 through stage 4 chronic kidney disease, or unspecified chronic kidney disease; N18.9 Chronic kidney disease, unspecified; I50.9 Heart failure, unspecified; Z88.5 Allergy status to narcotic agent; Z79.899 Other long term (current) drug therapy; Z79.4 Long term (current) use of insulin

== ENCOUNTER 2021-09-09 15:35 | Inpatient (IN) | payer OTHER ==
[~2021-09-09] VITALS: Ht 182.9 cm; Wt 90.7 kg
[~2021-09-09 15:35] MED LIST changes: +ELIQUIS2.5 MG PO; +LEVOFLOXACIN750 MG PO; +PREDNISONE 10 M10 MG PO; +PRINIVIL40 MG PO
--- NOTE | 2021-09-09 18:58 | NUR ---
[facility] [phone]
[2021-09-09 19:02] LABS: ABSOLUTE NEUTROPHILS 8.7 thou/uL (1.4-8.2); EOSINOPHILS 0.9 % (0.0-3.0); HEMATOCRIT 30.7 % (42.0-52.0); HEMOGLOBIN 9.8 gm/dL (14.0-18.0); LYMPHOCYTES 7.2 % (24.0-44.0); MCH 27.3 pg (26.0-34.0); MCV 85.4 fL (80.0-100.0); MONOCYTES 11.2 % (1.0-8.0); PLATELET COUNT 195 thou/uL (150-400); POLYS 79.7 % (36.0-66.0); RDW 14.4 % (10.5-14.5); WBC 10.9 thou/uL (4.0-11.0)
[2021-09-09 19:09] LABS: CALCIUM 8.9 mg/dL (8.5-10.1); CREATININE 1.6 mg/dL (0.7-1.3); POTASSIUM 4.4 mmol/L (3.5-5.1)
[2021-09-10 00:14] VITALS: BP 124/56
[2021-09-10 00:17] VITALS: BP 141/63
[2021-09-10 03:27] LABS: HEMATOCRIT 28.6 % (42.0-52.0); HEMOGLOBIN 9.1 gm/dL (14.0-18.0); MCH 27.4 pg (26.0-34.0); MCHC 31.9 g/dL (28.0-37.0); MCV 85.7 fL (80.0-100.0); RBC 3.34 mil/uL (4.50-6.00); RDW 14.5 % (10.5-14.5); WBC 9.7 thou/uL (4.0-11.0)
[2021-09-10 04:12] LABS: CALCIUM 8.3 mg/dL (8.5-10.1); CREATININE 1.7 mg/dL (0.7-1.3); POTASSIUM 5.1 mmol/L (3.5-5.1)
--- NOTE | 2021-09-10 05:02 | NUR ---
PT ARRIVED ON THE UNIT IN A BED AT 0000 IN A STABLE CONDITION. PT IS ALERT AND ORIENTED X4. PT WAS ORIENTED TO THE ROOM AND EDUCTAED ON THE USE OF CALL LIGHT. VS WERE TAKEN AND ASSESSMENT COMPLETED. PICTURES OF WOUND WERE TAKEN. DRSG CHANGE DONE WHICH WAS WELL TOLERATED BY PT. FALL PRECAUTIONS IN PLACE. WILL CONTINUE TO MONITOR.
[2021-09-10 05:07] VITALS: BP 134/75
[2021-09-10 05:35] LABS: CHOLESTEROL 138 mg/dL (<200); HDL CHOLESTEROL 55 mg/dL (>40); LDL CHOLESTEROL 72 mg/dL (<100); TC:HDL 2.5 Ratio (Not establshd); TRIGLYCERIDE 57 mg/dL (<150); VLDL 11 mg/dL (<40)
[2021-09-10 05:52] LABS: SERUM ASSESSMENT Clear
[2021-09-10 12:07] VITALS: BP 126/67
--- NOTE | 2021-09-10 14:34 | NUR ---
PT ADMITTED RELATED TO LOWER EXTREMITY CELLULITIS. CM REVIEWED CHART AND SPOKE WITH CARE TEAM. CM MET WITH PT AT BEDSIDE THIS DAY. PT APPEARED TO BE A&OX4. CM ROLE INTRODUCED. PT INDICATED HE LIVES ALONE IN A HOUSE AND THAT HIS SON SOMETIMES STAYS WITH HIM. HE INDICATED THERE IS A FULL FLIGHT OF STEPS TO BASEMENT LAUNDRY THAT HE HAD BEEN NAVIGATING OCEAN FISHING GUIDE. PT HAS HX OF LEFT BKA HAS PROSTHESIS. PT HAS CPAP, CANES, FWW, AND WC FOR HOME USE BUT HAD BEEN INDEPENDNET WITH PROSTHESIS IN THE HOME OCEAN FISHING GUIDE. PT HAD BEEN ON SERVICE WITH [facility] OCEAN FISHING GUIDE. CM SPOKE WITH THEM THIS AM AND THEY ARE FOLLOWING TO RESUME CARES UPON DC IF INDICATED. PT IS ON IV VANC WITH WC AND POD CONSULTED. CM FOLLOWING REGARDING DC PLANNING.
[2021-09-10 15:26] VITALS: BP 147/75
[2021-09-10 20:39] VITALS: BP 144/63
[2021-09-11] VITALS (8 sets, daily range): BP systolic 124–160; BP diastolic 57–91
[2021-09-11 01:06] LABS: GLYCOHEMOGLOBIN (HGB A1C) 8.8 % (4.8-5.6)
--- NOTE | 2021-09-11 02:49 | NUR ---
PATIENT AOX4 MAKES NEEDS KNOWN. PATIENT BLOOD SUGAR WAS 62 AT HS SNACKS OFFERED. PATIENT INCONTIENT PERICARE AND BARRIER CREAM APPLIED NEEDED. PATIENT USES PROTHESIS ON THE LEFT FOOT. FALL PRECAUTION IN PLACE.PATIENT IN BED ASLEEP AT THIS TIME BREATHING REGULAR AND UNLABOURED.
--- NOTE | 2021-09-11 08:14 | HC ---
[facility] [place] [address] CONSULTATION Name: LIZBETHMARY Ott Room #: 456-P ADM IN M.R.#: [id number] Admission: 09/09/21 Attend Phys: Apollo Cortez Discharge: Date of : 46 Report #: [id number] THIS REPORT FOR: cc: Sixto Sheldon,Van Mabry MD ~ DATE OF SERVICE: 09/10/2021 INFECTIOUS DISEASE CONSULTATION ATTENDING PHYSICIAN: Dr. Velasquez. REASON FOR EVALUATION: Right foot skin and soft tissue infection with cellulitis, likely perhaps deeper infection with chronic ulceration involving the fourth and fifth toes, plantar aspect. HISTORY OF PRESENT ILLNESS: Chart reviewed. The patient examined. A 71-year-old gentleman with diabetes mellitus type 2, previous left below-knee amputation, has known vasculopathy. He states he does have feeling in his feet, although chart indicates some peripheral neuropathy. He has had a longstanding history of wounds. [facility], was seen, noted to have increasing inflammation. He was referred to the Emergency Room. He denies any systemic illness. No fevers or chills. Appetite has been satisfactory. He notes his blood sugars have been somewhat widely variable. He did have a culture previously as an outpatient with mixed lior including MRSA, enterobacter, enterococcus. Inflammatory markers were elevated, CRP of 122.7, ESR of 87, lactic acid was normal at 0.7. Arterial Doppler studies showed no evidence of occlusive disease or hemodynamically significant stenosis within the right lower extremity. Blood cultures collected at time of admission are sterile thus far. Plain films of the foot showed no fracture or deformities. There is no destructive process noted at the bones. MRI was ordered, but due to AICD was unable to do. He was empirically started on combination therapy with vancomycin. ALLERGIES: CODEINE. CURRENT MEDICATIONS: Include insulin, ascorbic acid, thiamine, torsemide, carvedilol, isosorbide mononitrate, vancomycin, p.r.n. analgesics, antiemetics. PAST MEDICAL HISTORY: Diabetes mellitus, it is complicated by widespread vasculopathy, has known coronary artery disease with history of cardiomyopathy and congestive heart failure; he has had peripheral vascular disease, previous history of osteomyelitis, ultimately required a left below-knee amputation. He does have an AICD in place, chronic renal insufficiency, Parkinson's, chronic anemia, was diagnosed with COVID in 2019, hyperlipidemia, hypertension, history of prostate cancer. [address] [address] CONSULTATION Name: MARY NIEVES Tru Room #: 456-P [facility] IN [facility]#: [id number] Admission: 09/09/21 Attend Phys: Apollo Cortez Discharge: Date of : 46 Report #: [id number] SOCIAL HISTORY: Nonsmoker, occasional ethanol, no illicit drug use. FAMILY HISTORY: Noncontributory. REVIEW OF SYSTEMS: Otherwise, unremarkable. PHYSICAL EXAMINATION: GENERAL: He is pleasant, alert, cooperative. He is sitting up in a chair. He is generally lucid, he is in mild to moderate distress, slightly undernourished. VITAL SIGNS: Temperature 97.8, pulse 74, respirations 18, blood pressure is 147/75. SKIN: Warm, dry, no rashes. HEENT: Normocephalic. Extraocular muscles intact. NECK: Supple. LUNGS: Diminished breath sounds. He has few scattered crackles at the bases. HEART: Regular, has soft systolic murmur. ABDOMEN: Mildly obese, somewhat firm, nontender. There is a dressing in place over the right distal lower extremity. GENITOURINARY AND RECTAL: Deferred. LABORATORY DATA: Plain film of the foot as noted above. No osseous abnormalities. Blood cultures sterile thus far. Electrolytes: Sodium 140, potassium 5.1, chloride 107, bicarbonate 24, anion gap of 9, BUN and creatinine 32 and 1.7, glucose was 339. CBC: White count 9.7, H and H 9.1 and 28.6, platelets of 145. Sed rate of 87. CRP 122.7. ASSESSMENT AND PLAN: Suspected deep infection involving the right foot in a patient who has already had previous left below-knee amputation. There is polymicrobial growth on recent culture, and for this reason we will have Gram-positive coverage at this point, we will add some Gram-negative coverage pending further evaluation. Some discussion about possible debridement that is generally favored in these settings to debulk. He is certainly at risk for additional complications. We will add incentive spirometry. We will monitor expectantly. <ELECTRONICALLY SIGNED> By: Van Durbin MD 09/11/21 0814 [id number] [id number] Van Durbin MD /nt
--- NOTE | 2021-09-11 09:27 | HC ---
[facility] [place] [address] CONSULTATION Name: LIZBETHMARY Ott Room #: 456-P ADM IN M.R.#: [id number] Admission: 09/09/21 Attend Phys: Apollo Cortez Discharge: Date of : 46 Report #: [id number] THIS REPORT FOR: cc: Sixto Sheldon,Sixto Bell,Santos Tovar MD ~ DATE OF SERVICE: 09/10/2021 CHIEF COMPLAINT: Diabetic foot ulceration with infection. HISTORY OF PRESENT ILLNESS: This is a 71-year-old male patient with whom I am familiar from previous care, who developed increasing swelling, drainage and ulceration to his right lateral foot. He was on oral antibiotic; however, did not have improvement, was admitted through the Emergency Department yesterday and he denies pain. He states he feels reasonably well, but is concerned about his foot. PAST MEDICAL HISTORY: Positive for history of chronic kidney disease, Parkinson's, recent COVID-19 infection. He has a history of congestive heart failure, coronary artery disease. He is status post placement of AICD. Has a history of peripheral vascular disease as well as prior prostate cancer with radiation treatment. ALLERGIES: CODEINE. CURRENT MEDICATIONS: Includes aspirin, acetaminophen, insulin, ammonium lactate, carvedilol, potassium chloride, zinc sulfate, torsemide, cholecalciferol, insulin. SOCIAL HISTORY: The patient is a prior smoker, occasional alcohol consumption. FAMILY HISTORY: Noncontributory. REVIEW OF SYSTEMS: CONSTITUTIONAL: The patient denies fever, chills, weight loss. NEUROLOGICAL: The patient denies focal weakness, some tingling. EYES: The patient denies visual changes, redness or drainage. ENT: The patient denies earache, nasal drainage or sore throat. CARDIOVASCULAR: The patient denies chest pain, palpitations, or diaphoresis. PULMONARY: The patient denies cough or shortness of breath. GASTROINTESTINAL: The patient denies nausea, vomiting, diarrhea or abdominal pain. ORTHOPEDIC: The patient notes swelling and drainage from his right foot. Other systems in a 14-point review of systems are negative. PHYSICAL EXAMINATION: [address] [address] CONSULTATION Name: MRAY NIEVES Room #: 456-P [facility] IN [facility].#: [id number] Admission: 09/09/21 Attend Phys: Apollo Cortez Discharge: Date of : 46 Report #: [id number] VITAL SIGNS: At this time include temperature of 36.8, pulse 60, respiratory rate of 20, blood pressure 134/75. GENERAL: This is a somewhat chronically ill-appearing male patient who appears to be in minimal distress. HEENT: Head normocephalic. Nose and throat are clear. NECK: Supple. LUNGS: Diminished. HEART: Regular rate and rhythm. ABDOMEN: Soft, bowel sounds present. EXTREMITIES: Examination of the lower extremities demonstrate diminished pulses on the right foot. He has a prior left below-knee amputation. He is currently wearing a prosthesis. The right lateral foot shows some blistering and drainage and tenderness along the lateral aspect and involving the fourth and fifth toes and metatarsal region. Multiple areas of ulceration noted, loose skin is peeled away revealing healthy, clean, granulating tissue. I do not find any deep tunneling ulcerations or wounds at this time. NEUROLOGIC: The patient is alert, oriented and appropriate. LABORATORY STUDIES: Include sodium 140, potassium 5.1, chloride 107, CO2 of 24, BUN 32, creatinine 1.7, glucose of 339. White blood cell count 9.7 with a hemoglobin of 9.1. CLINICAL IMPRESSION: 1. Diabetic foot ulceration to the right lateral foot. 2. Wound infection and cellulitis to the right foot. 3. History of peripheral vascular disease. 4. Type 2 diabetes mellitus. 5. Prior left below-knee amputation. 6. Acute kidney injury. 7. Hypertension. 8. Hyperlipidemia. 9. Coronary artery disease, status post stent placement and placement of automatic implantable cardioverter defibrillator. RECOMMENDATIONS: At this point in time, we will not able to perform an MRI. Cultures have been obtained from the foot. We will need a CT scan to evaluate the deeper structures while here in the hospital. We will recommend topical Aquacel AG and ABD, Kerlix for now. He may require surgical intervention. Of note, also he did undergo an arterial Doppler yesterday, which showed no significant occlusions of the right lower extremity. Continue with intravenous antibiotic therapy. I appreciate being asked to see him in consultation. <ELECTRONICALLY SIGNED> By: Santos Montero MD 09/11/21926 1100 26 Santos Montero MD /nt
--- NOTE | 2021-09-11 13:19 | NUR ---
Admitted with cellulitis and diabetic foot wound. Hx COVID, DM, left BKA, PVD/PAD. Attempted visit with pt and was sleeping soundly so did not awaken at this time. Chart reviewed, wts highly variable past year 222-240 lb and now 200 lb. A1C was 11 last year and now 8.8. Has carb control diet order, good appetite and requested extra food yesterday. If pt continues to want more food, can double protein or vegetable items, but continue to limit carbohydrate based foods. Low nutrition risk
--- NOTE | 2021-09-11 14:39 | NUR ---
CARE TEAM INDICATED THAT PT IS TO HAVE 5TH RAY AMPUTATION THIS DAY. IT IS ANTICIPATED THAT PT WILL LIKELY BE HERE OVER WEEKEND AND PAY BE PUT ON ABX. PT ANTICIPATES RETURNING HOME WITH [facility]. CM FOLLOWING REGARDING DC PLANNING.
--- NOTE | 2021-09-11 14:52 | 2DMMODE ---
[facility] [place] [address] 2 D/M-MODE ECHOCARDIOGRAM Name: MARY NIEVES Room #: 456-P ADM IN M.R.#: [id number] Admission: 09/09/21 Attend Phys: Apollo Cortez Discharge: Date of : 48 Report #: [id number] THIS REPORT FOR: cc: Sixto Sheldon,Mauri Ryder MD [facility] ~ APPROVED REPORT Study performed: 09/11/2021 14:03:20 EXAM: Comprehensive 2D, Doppler, and color-flow Echocardiogram Patient Location: Bedside Room #: 456 Status: INGRID BSA: 2.13 HR: 60 bpm BP: 143/68 mmHg Rhythm: Regular Indications Pre-Op Hx: AICD, Cardiac stent, cardiomyopathy, CHF, amputee, HTN, HLP, DM. 2D Dimensions IVSd: 12.38 (7-11mm) LVOT Diam: 21.29 (18-24mm) LVDd: 56.76 mm PWd: 11.94 (7-11mm) Ascending Ao: 31.29 (22-36mm) Left Atrium: 48.87 (27-40mm) Aortic Root: 30.71 mm Volumes Left Atrial Volume (Systole) Single Plane 4CH: 92.61 mL Single Plane 2CH: 95.52 mL LA ESV Index: 48.00 mL/m2 Aortic Valve AoV Peak Renato.: 1.07 m/s AO Peak Gr.: 4.56 mmHg LVOT Max P.07 mmHg LVOT Max V: 0.72 m/s BLAIRE Vmax: 2.40 cm2 Mitral Valve MV Decel. Time: 160.14 ms [facility] [place] [address] 2 D/M-MODE ECHOCARDIOGRAM Name: LIZBETHMARY Tru Room #: 456-P [facility] IN [facility].#: [id number] Admission: 09/09/21 Attend Phys: Apollo Arellano Mar Discharge: Date of : 48 Report #: [id number] MV E Max Renato.: 1.22 m/s Pulmonary Valve PV Peak Renato.: 0.64 m/s PV Peak Gr.: 1.64 mmHg Tricuspid Valve TR Peak Renato.: 3.29 m/s RAP Estimate: 15.00 mmHg TR Peak Gr.: 43.26 mmHg PA Pressure: 58.00 mmHg Left Ventricle The left ventricle is normal size. Mild concentric left ventricular hypertrophy. Left ventricular systolic function is moderately decreased. LVEF is 30-35%. This study is not technically sufficient to allow evaluation of the LV diastolic function. Right Ventricle Right ventricle is mildly dilated. Right ventricle is mildly hypokinetic. Device lead is present in the right ventricle. Atria Left atrium is severely dilated. Right atrium is at the upper limits of normal. Aortic Valve Aortic valve is trileaflet. No aortic regurgitation is present. There is no aortic valvular stenosis. Mitral Valve The mitral valve is normal in structure. Mild mitral regurgitation. Tricuspid Valve The tricuspid valve is normal in structure. Estimated PAP is 48mmHg. Mild to moderate tricuspid regurgitation. Pulmonic Valve The pulmonary valve is normal in structure. Trace pulmonic regurgitation. Great Vessels The aortic root is normal in size. The ascending aorta is normal in size. IVC is dilated and collapses <50% with inspiration. Pericardium [facility] [address] [place] [address] 2 D/M-MODE ECHOCARDIOGRAM Name: MARY NIEVES Room #: 456-P [facility] IN .R.#: [id number] Admission: 09/09/21 Attend Phys: Apollo Vance Discharge: Date of : 46 Report #: [id number] There is no pericardial effusion. <Conclusion> Normal left ventricle size with mild concentric hypertrophy Global hypokinesis ejection fraction 30-35% Right ventricle mildly dilated/hypokinetic Linear density right ventricle compatible with pacer wire Right atrium moderately to severely dilated Normal aortic valve structure and function Mild mitral valve insufficiency Mild to moderate tricuspid valve insufficiency Pulmonary systolic pressure estimated at 48 mmHg No pericardial effusion Moderately dilated IVC Normal aortic root size. <ELECTRONICALLY SIGNED> By: Mauri Chavarria MD, [facility] 09/11/21 1452 51 1452 Mauri Chavarria MD, FACC /INF
--- NOTE | 2021-09-11 19:01 | H ---
[facility] [place] [address] HISTORY AND PHYSICAL Name: LIZBETHMARY Ott Room #: 456-P ADM IN M.R.#: [id number] Admission: 09/09/21 Attend Phys: Apollo Cortez Discharge: Date of : 48 Report #: [id number] THIS REPORT FOR: cc: Sixto Sheldon,Bao Frank DPM ~ DATE OF SERVICE: 09/09/2021 INTRODUCTION: This is a 71-year-old -[place]ian male who has been admitted to [facility] for a right foot diabetic foot ulcer. HISTORY OF PRESENT ILLNESS: This is a 71-year-old -I[place]ian male who has a right diabetic foot ulcer present. He has had a previous left BKA, which makes him very distraught. He has multiple comorbidities. The patient is not complaining of any fever or chills. Unclear how the wound started on his right foot, but there are significant number of wounds. PAST MEDICAL HISTORY: In the chart noted for congestive heart failure, hypertension, hyperlipidemia, peripheral neuropathy, ischemic cardiomyopathy, PVD, PAD, prostate cancer with radiation treatment, CKD 3, Parkinson's, COVID-19 previously. PAST SURGICAL HISTORY: [id number]-[id number] amputation, left side. ALLERGIES: CODEINE. MEDICATIONS: List in chart. FAMILY HISTORY: Noncontributory. SOCIAL HISTORY: Very pleasant man, but clearly distraught about his left leg surgery that required a left BKA. No history of current tobacco use. He does drink rarely. Recreational drugs. PHYSICAL EXAMINATION: Upper extremity ____ examinations are being deferred. Lower extremity shows he has a wound present on his fifth digit, fourth digit and lateral foot. The fourth digit and lateral foot is more of a Topete grade 1 type wound. The fifth digit has a boggy distal fifth digit, discolored and some purulence and is abutting against the fourth digit with a kissing lesion present. IMAGING DATA: Blood flow appears to be adequate according to the JACE and ultrasound. CT scan is unremarkable for any bone involvement as well as the x-ray. [address] [address] HISTORY AND PHYSICAL Name: LIZBETHMARY CALDERÓN Room #: 456-P ADM IN ..#: [id number] Admission: 09/09/21 Attend Phys: Apollo Cortez Discharge: Date of : 46 Report #: [id number] ASSESSMENT: The patient has diabetic foot ulcer as discussed above. PLAN: Fifth digit amputation. I think this is a schreiber decision to move forward with because it will be problematic and probably will not heal. The fifth digit is abutting against the fourth digit and could be causing a wound on the fourth digit as well. The patient at first was distraught about the thought of any kind of surgery on his right foot because ____ left leg. ____ talked to Dr. Montero and ____ who have agreed with the surgery. Also, Infectious Disease is recommending debridement as well. <ELECTRONICALLY SIGNED> By: Bao Holm DPM 09/11/21 1901 1722 1748 Bao Holm DPM /nt
[2021-09-12 00:21] VITALS: BP 143/64
[2021-09-12 02:49] VITALS: BP 134/72
--- NOTE | 2021-09-12 04:46 | NUR ---
ASSUMED CARE AT 2007, PT ARRIVED FROM OR, STABLE, ALERT AND ORIENTED X 4, REPORTS VERY HUNGRY AND SLEEPY, VOICES NO PAIN OR DISCOMFORT, BELONGINGS AND CALL LIGHT WITHIN REACH, VITAL SIGNS MONITORING ESTABLISHED PER PROTOCAL WITHIN EXPECTED RANGE, DRESSING INTACT NO SATURATION NOTED, ENCOURAGED TO UTIZE URINAL. WILL CONTINUE TO MONITOR.
[2021-09-12 05:10] VITALS: BP 142/77
[2021-09-12 07:54] VITALS: BP 162/78
[2021-09-12 17:26] VITALS: BP 148/67
[2021-09-12 20:21] VITALS: BP 144/63
--- NOTE | 2021-09-13 05:35 | NUR ---
ASSUMED CARE AT 1900, PT LAYING COMFORTABLEY IN BED, SMALL DRAINAGE ON THE DRESSING, PT REPORTS NO PAIN, SON CAME FOR VISIT PROVIDED WITH THE CODE PER PT REQUEST FOR PROGRESS, PT IS COMPLIANT WITH TX, NO ADVERSE REACTION NOTED, ENCOURAGED NOT TO PUT WEIGHT ON THE FOOT UNTIL SAFETY IS ESTABLISEHED. WILL CONTINIUE TO MONITOR.
[2021-09-13 06:37] LABS: ALBUMIN 2.5 g/dL (3.4-5.0); CALCIUM 8.6 mg/dL (8.5-10.1); CREATININE 1.7 mg/dL (0.7-1.3); PHOSPHORUS 3.6 mg/dL (2.6-4.7); POTASSIUM 4.1 mmol/L (3.5-5.1)
[2021-09-13 07:00] VITALS: BP 145/70
[2021-09-13 18:00] VITALS: BP 134/110
--- NOTE | 2021-09-13 18:22 | NUR ---
Assumed pt care at 7am.Pt in bed resting and watching tv. Assessment completed vss. Assist with tray setup at alltimes .Good appetite. Meds given as ordered and well tolerated. Dr Cortez here, order noted.Complete bed bathngiven by snow shoveler today. Rt foot drsg intact. Fall bundle in place. Will continue to monitor.
[2021-09-13 20:15] VITALS: BP 143/61
[2021-09-13 21:40] VITALS: BP 145/64
--- NOTE | 2021-09-14 05:09 | NUR ---
ASSUMED CARE AT 1900, PT ASSISTED WITH ADL, LAYING COMFORTABLY IN BED, NO ADVERSE REACTION NOTED FROM CURRENT TX, LBKA PROSTESIS IN THE ROOM, NOT TO BEAR WEAR ON THE RIGHT FOOT AFTER THE PROCEDURE, PT COMPLIANT WITH THE CURRENT PLAN OF CARE, IV ON THE LEFT FOREARM, PATENT, REPORTS NO PAIN WILL CONTINUE TO MONITOR.
[2021-09-14 08:46] VITALS: BP 163/69
[2021-09-14 13:33] VITALS: BP 161/78
--- NOTE | 2021-09-14 15:29 | NUR ---
PT HAD 5TH RAY AMPUTATION TUESDAY. PT CONTINUES ON IV VANC Q12 AND IV CEFEPIME Q12. ID FOLLOWING AWAITING FINAL CULTURES. PT PLANS TO DC HOME AND RESUME SERVICES WITH [facility] ONCE MEDICALLY STABLE. CM FOLLOWING.
--- NOTE | 2021-09-14 16:12 | NUR ---
Assumed pt care at 7am.Pt in and out of bed with assist. Assessment completed. vss.Pt tolerated meds and diet. Vanco through at 1030 was 21,pharmacy notified.Order noted. Wound care changed drsg to rt foot today. Dr Cortez and Ramakrishna here,order noted. Pt up to bsc and chair with assist. Condom cath to dd. Adequate u/o noted. Will continue to monitor.
[2021-09-14 20:11] VITALS: BP 111/48
--- NOTE | 2021-09-15 06:40 | NUR ---
ASSUMED CARE OF PT AT 1900. PT ASSESSED TO BE AOX4 71M PRESENTING WITH CELLULITIS AND R 5TH TOE AMPUTATION. PT WAS ABLE TO REST QUIETLY THROUGHOUT THE NIGHT WITH NO COMPLAINTS, VSS. PT IS PACED ON TELEMETRY, SUGARS UNDER CONTROL, CONDOM CATH DRAINING AND CHANGED, IV RUNNING VANCO IN AM. IS ABLE TO GET UP TO BEDSIDE COMMODE WITH WALKER AND L PROSTHETIC. RESTING IN ROOM NOW, WILL PASS ON TO DAY SHIFT RN.
[2021-09-15 07:47] VITALS: BP 155/66
[2021-09-15 10:34] LABS: CALCIUM 9.1 mg/dL (8.5-10.1); CREATININE 1.6 mg/dL (0.7-1.3)
[2021-09-15] MEDS ORDERED: LANTUS SUBQ (11:17)
[2021-09-15] MEDS ORDERED: HUMALOG100 UNIT/1 SUBQ (11:18)
[2021-09-15 12:37] VITALS: BP 155/66
--- NOTE | 2021-09-15 14:47 | NUR ---
CARE TEAM INDICATED THAT PT IS MEDICALLY STABLE TO DC HOME THIS DAY. PT IS TO DC ON [facility]AL [employer]. CM PRICED THIS OUT THROUGH HIS INSURANCE AND IT WILL COST PT $10.00 TO FILL. CM NOTIFIED PT. PT HAS ALL RECOMMENDED DME. CM FAXED CLINICAL AND ORDERS TO [employer] [facility]. THEY WILL DO SOC WITH PT TUESDAY. PT'S SON TO TRANSPORT HOME THIS DAY. NO OTHER CM INTERVENTION INDICATED. CASE CLOSED.
[2021-09-15 18:31] VITALS: BP 155/66
--- NOTE | 2021-09-15 18:56 | NUR ---
PT ALERT AND ORIENTED TIMES FOUR. VSS, IVF INFUSING PER ORDER. PT DENIES PAIN/SOA. PT UP WITH ASSIST OF ONE. PLANS FOR DISCHARGE TODAY. WILL CONTINUE TO MONITOR.
--- NOTE | 2021-09-16 10:46 | O ---
[facility] [place] [address] OPERATIVE REPORT Name: MARY NIEVES Room #: 456-P [facility] IN M.R.#: [id number] Admission: 09/09/21 Attend Phys: Apollo Arellano Dana Discharge: 09/15/21 Date of : 46 Report #: [id number] THIS REPORT FOR: cc: Sixto Sheldon,Bao FrankM ~ DATE OF SERVICE: 09/11/2021 PREOPERATIVE DIAGNOSIS: Right diabetic foot ulcer. POSTOPERATIVE DIAGNOSIS: Right diabetic foot ulcer. PROCEDURE: Right partial fifth ray resection. ANESTHESIA: General. TOURNIQUET: None. DESCRIPTION OF PROCEDURE: The patient was transferred to the operating room and placed on the operating table in the supine position. The right lower extremity was prepped and draped in the usual sterile manner. An incision was made over the fifth digit, the fifth digit was noted to have hardly any bleeding, so we made a racquet-type incision and excised the fifth digit off the fifth metatarsal and then dissected back to the fifth metatarsal approximately [address]. I resected the fifth metatarsal head with a sagittal saw. This way, I got better soft tissue to work with closure with less tension. It should be noted there was very minimal bleeding at the very distal 30% of the incision. I do expect this part to have difficult time healing and may be present with a necrotic tissue at first and fill in secondarily. It was washed out thoroughly and deep tissue was sent for aerobic, anaerobic, and fungal. Then, the incision was closed with 2-0 nylon using simple suture technique. It was dressed with Adaptic, fluffs, Kerlix loosely and an Ricci bandage loosely. Minimal bleeding was noted. [address] [address] OPERATIVE REPORT Name: MARY NIEVES Room #: 456-P [facility] IN [facility]#: [id number] Admission: 09/09/21 Attend Phys: Apollo Cortez Discharge: 09/15/21 Date of : 48 Report #: [id number] The patient tolerated the procedure well and left the operating room in stable condition with vital signs and vascular status intact. <ELECTRONICALLY SIGNED> By: Bao Holm DPM 09/16/21 1046 1807 [id number] Bao Holm DPM /nt
--- NOTE | 2021-09-16 11:07 | PATH ---
[facility] [address] [place] [address] PATHOLOGY RPT PROCEDURE Name: LIZBETHMARY Tru Room #: 456-P DIS IN M.R.#: [id number] Admission: 09/09/21 Date of : 46 Discharge: 09/15/21 Report #: [id number] Path Case #: [id number] [facility] Accession Number: [id number] . 01 Material submitted: . toe - RIGHT 5TH DIGIT. Modifiers: right, fifth . 01 Clinical history: . AMPUTATION OF TOES DIABETIC FOOT ULCER . 02 Diagnosis: Right fifth digit, amputation: - Skin and soft tissue with gangrenous necrosis. - Underlying bone with mild osteopenia. - No definite osteomyelitis identified. - Proximal soft tissue and bone are viable. (ANK/db; 09/15/2021) LBQ 09/15/2021 1352 Local . 02 Electronically signed: . Nancy Sparks MD, Pathologist NPI- [id number] . 01 Gross description: . The specimen is received in formalin, labeled "Mary Lal, right fifth digit ulcer" and consists of a disarticulated amputated toe (4.5 cm in length by 2.4 x 1.8 cm) which displays on the distal dorsal and ventral surfaces a mcleod-hernandez dusky well-circumscribed area of discoloration (5.5 x 4.5 cm) that involves the surgical margin (inked black). The articular surface is mcleod-hernandez, smooth and dusky. Sectioning reveals unremarkable underlying bone. Chairman Emeritus sections are submitted following decalcification as follows: A1: Surgical margin, submitted en face, represented and lengthwise section proximal bone, represented A2-A3: Cross sections of digit to show underlying bone and overlying area of discoloration ([place]; 09/14/2021) DKA/DKA 09/14/2021 1743 Local . 02 Pathologist provided ICD-10: I96, M85.871 . 02 CPT . 921615, 921861 Specimen Comment: A courtesy copy of this report has been sent to [phone] Specimen Comment: [phone], [place] [address] PATHOLOGY RPT PROCEDURE Name: MARY LAL Room #: 456-P DIS IN M.R.#: [id number] Admission: 09/09/21 Date of : 46 Discharge: 09/15/21 Report #: [id number] Path Case #: [id number] Specimen Comment: Report sent to , DR BARTHOLOMEW / DR TIWARI Specimen Comment: A duplicate report has been generated due to demographic updates. Performed at: [address], [place] [id number] MD Popeye Bermudez MD Phone: [phone] Performed at: [address] [id number] MD Melina Chin MD Phone: [phone]
== END 2021-09-15 19:36 | disposition home health service (06) | DRG 616 ==
LOC: ER 15:35 → 4W 20:22 → EROBS 20:22 → 4W 09-10
PROVIDERS: Emergency Medicine; Nurse Practitioner Family; Specialist; ADMIT Hospitalist; ATTEND Hospitalist
PROC: 0Y6M0ZF Detachment at Right Foot, Partial 5th Ray, Open Approach (ICD-10-PCS; principal; 2021-09-11)
DX: E11.621 Type 2 diabetes mellitus with foot ulcer (principal); E43 Unspecified severe protein-calorie malnutrition; L03.115 Cellulitis of right lower limb; I13.0 Hypertensive heart and chronic kidney disease with heart failure and stage 1 through stage 4 chronic kidney disease, or unspecified chronic kidney disease; N17.9 Acute kidney failure, unspecified; E11.42 Type 2 diabetes mellitus with diabetic polyneuropathy; I50.9 Heart failure, unspecified; I25.5 Ischemic cardiomyopathy; N18.32 Chronic kidney disease, stage 3b; Z20.822 Contact with and (suspected) exposure to COVID-19; I25.10 Atherosclerotic heart disease of native coronary artery without angina pectoris; E78.5 Hyperlipidemia, unspecified; E11.51 Type 2 diabetes mellitus with diabetic peripheral angiopathy without gangrene; D64.9 Anemia, unspecified; G20 Parkinson's disease; E53.8 Deficiency of other specified B group vitamins; E55.9 Vitamin D deficiency, unspecified; E11.65 Type 2 diabetes mellitus with hyperglycemia; E11.22 Type 2 diabetes mellitus with diabetic chronic kidney disease; Z60.2 Problems related to living alone; R53.81 Other malaise; S91.301A Unspecified open wound, right foot, initial encounter; X58.XXXA Exposure to other specified factors, initial encounter; Y93.89 Activity, other specified; Z89.512 Acquired absence of left leg below knee; Z86.16 Personal history of COVID-19; Z85.46 Personal history of malignant neoplasm of prostate; Z92.3 Personal history of irradiation; Z95.5 Presence of coronary angioplasty implant and graft; Z89.412 Acquired absence of left great toe; Z95.810 Presence of automatic (implantable) cardiac defibrillator; Z88.6 Allergy status to analgesic agent; Z87.891 Personal history of nicotine dependence; Z82.49 Family history of ischemic heart disease and other diseases of the circulatory system; Z83.3 Family history of diabetes mellitus; Y92.89 Other specified places as the place of occurrence of the external cause; Y99.8 Other external cause status; Z68.27 Body mass index [BMI] 27.0-27.9, adult
CPT/HCPCS: 10045; 50010; 50386; 50951; 56525; 57091; 62110; 62900

== ENCOUNTER → 2021-09-23 | Outpatient (CLI) | payer OTHER | LOC: HYPER 14:07 | PROVIDERS: ATTEND Emergency Medicine | DX: T87.89 Other complications of amputation stump (principal); E11.621 Type 2 diabetes mellitus with foot ulcer; L89.892 Pressure ulcer of other site, stage 2; L97.512 Non-pressure chronic ulcer of other part of right foot with fat layer exposed; I87.2 Venous insufficiency (chronic) (peripheral); E11.51 Type 2 diabetes mellitus with diabetic peripheral angiopathy without gangrene; E11.40 Type 2 diabetes mellitus with diabetic neuropathy, unspecified; L84 Corns and callosities; L03.115 Cellulitis of right lower limb; I25.10 Atherosclerotic heart disease of native coronary artery without angina pectoris; I11.0 Hypertensive heart disease with heart failure; I50.22 Chronic systolic (congestive) heart failure; G47.33 Obstructive sleep apnea (adult) (pediatric); K21.9 Gastro-esophageal reflux disease without esophagitis; Z79.4 Long term (current) use of insulin; Z85.46 Personal history of malignant neoplasm of prostate; Z89.512 Acquired absence of left leg below knee; Z95.5 Presence of coronary angioplasty implant and graft; Z95.0 Presence of cardiac pacemaker; Z98.890 Other specified postprocedural states; Z79.82 Long term (current) use of aspirin; Z79.899 Other long term (current) drug therapy; Y83.5 Amputation of limb(s) as the cause of abnormal reaction of the patient, or of later complication, without mention of misadventure at the time of the procedure ==

== ENCOUNTER → 2021-10-08 | Outpatient (CLI) | payer OTHER | LOC: HYPER 15:36 | PROVIDERS: ATTEND Emergency Medicine | DX: T87.89 Other complications of amputation stump (principal); E11.621 Type 2 diabetes mellitus with foot ulcer; L89.892 Pressure ulcer of other site, stage 2; L97.512 Non-pressure chronic ulcer of other part of right foot with fat layer exposed; I87.2 Venous insufficiency (chronic) (peripheral); E11.51 Type 2 diabetes mellitus with diabetic peripheral angiopathy without gangrene; E11.40 Type 2 diabetes mellitus with diabetic neuropathy, unspecified; L84 Corns and callosities; L03.115 Cellulitis of right lower limb; I25.10 Atherosclerotic heart disease of native coronary artery without angina pectoris; I11.0 Hypertensive heart disease with heart failure; I50.22 Chronic systolic (congestive) heart failure; G47.33 Obstructive sleep apnea (adult) (pediatric); K21.9 Gastro-esophageal reflux disease without esophagitis; Z79.4 Long term (current) use of insulin; Z85.46 Personal history of malignant neoplasm of prostate; Z89.512 Acquired absence of left leg below knee; Z95.5 Presence of coronary angioplasty implant and graft; Z95.0 Presence of cardiac pacemaker; Z79.82 Long term (current) use of aspirin; Y83.5 Amputation of limb(s) as the cause of abnormal reaction of the patient, or of later complication, without mention of misadventure at the time of the procedure ==